=== PATIENT | female | born 1965 | race African-American/Black ===

== ENCOUNTER 2017-07-11 05:55 | Emergency (ER) | payer OTHER, SELFPAY ==
[2017-07-11] MEDS ORDERED: PROMETHAZINE 25 MG/ML VIAL ONE (06:31)
[2017-07-11] MEDS ORDERED: KETOROLAC 30 MG/ML INJ ONE (06:31)
[2017-07-11] MEDS ORDERED: NA CHLORIDE 0.9% 1,000 ML ONE ×2 (06:31→08:25)
[2017-07-11] MEDS ORDERED: DIAZEPAM 10 MG/2 ML INJ SYRINGE ONE (06:33)
[2017-07-11 06:38] LABS: Absolute Lymphocytes (CBC) 1.2 K/uL (0.7-4.9); Absolute Monocytes 0.6 K/uL (0.1-1.3); Absolute Neutrophil 6.1 K/uL (1.8-8.0); Basophils % 0.3 % (0-1.3); Eosinophils % 0.5 % (0-4.4); Hematocrit 33.6 % (36.0-45.0); Lymphocytes % 15.3 % (15.3-44.8); MCH 30.8 pg (27.0-35.0); MCV 89.8 fL (80-100); MPV 7.9 fL (7.6-11.3); Monocytes % 7.9 % (3.3-12.3); RBC Red Blood Cell Count 3.75 M/uL (3.86-4.86)
[2017-07-11 06:43] LABS: BUN Blood Urea Nitrogen 12 mg/dL (6-20); Bicarbonate 23 mEq/L (21-31); Glomerular Filtration Rate > 90 mL/min (=/>90); Glucose Level 108 mg/dL (65-120); Potassium 3.7 mEq/L (3.6-5.0); Sodium Level 131 mEq/L (135-145)
[2017-07-11] MEDS ORDERED: DEXAMETHASONE 10 MG/ML VIAL ONE (08:25)
--- NOTE | 2017-07-11 08:58 | EDPHYS ---
Physician Documentation [facility] Name: Tiana Mcrae Age: 52 yrs Sex: Female : 1965 Arrival Date: 07/11/2017 Time: 05:56 Bed 5 Private MD: ED Physician Cirilo Rojo HPI: 07/11 06:11 This 52 yrs old Black Female presents to ER via Unassigned with complaints of Headache. snw 06:11 The patient complains of pain to the right eye and left eye. The patient describes the snw headache as unrelenting. Onset: The symptoms/episode began/occurred gradually, 3 day(s) ago, and became worse and became persistent. Associated signs and symptoms: The patient has no apparent associated signs or symptoms. Severity of symptoms: At its worst the pain was incapacitating, in the emergency department the pain is unchanged. Headache History: Denies prior headaches. It is unknown whether or not the patient has had similar symptoms in the past. The patient has been recently seen by a physician: the patient's primary care provider, with similar presenting complaints, and apparently given a diagnosis of Sinusitis. BINMAN: 06:42 LMP N/A - Hysterectomy tc3 Historical: - Allergies: 06:38 No Known Allergies; tc3 - Home Meds: 06:38 None [Active]; tc3 - PMHx: 06:38 Sinus Infection; tc3 - PSHx: 06:38 Hysterectomy; tc3 - Immunization history:: Last tetanus immunization: not indicated for visit today. Pneumococcal vaccine is not up to date, Flu vaccine is up to date. - Social history:: Smoking status: Patient uses tobacco products, smokes one-half pack cigarettes per day, Patient uses alcohol, only on a social basis. Patient/guardian denies using street drugs. ROS: 06:11 ENT: Negative for injury, pain, and discharge, Neck: Negative for injury, pain, and snw swelling, Cardiovascular: Negative for chest pain, palpitations, and edema, Respiratory: Negative for shortness of breath, cough, wheezing, and pleuritic chest pain, Abdomen/GI: Negative for abdominal pain, nausea, vomiting, diarrhea, and constipation, Back: Negative for injury and pain, : Negative for injury, bleeding, discharge, and swelling, MS/Extremity: Negative for injury and deformity, Skin: Negative for injury, rash, and discoloration. 06:11 Constitutional: Positive for malaise, poor PO intake. 06:11 Eyes: Positive for pain, photophobia. 06:11 Neuro: Positive for headache. Exam: 06:11 Head/Face: Normocephalic, atraumatic. Eyes: Pupils equal round and reactive to light, snw extra-ocular motions intact. Lids and lashes normal. Conjunctiva and sclera are non-icteric and not injected. Cornea within normal limits. Periorbital areas with no swelling, redness, or edema. ENT: Nares patent. No nasal discharge, no septal abnormalities noted. Tympanic membranes are normal and external auditory canals are clear. Oropharynx with no redness, swelling, or masses, exudates, or evidence of obstruction, uvula midline. Mucous membranes moist. Neck: Trachea midline, no thyromegaly or masses palpated, and no cervical lymphadenopathy. Supple, full range of motion without nuchal rigidity, or vertebral point tenderness. No Meningismus. Chest/axilla: Normal chest wall appearance and motion. Nontender with no deformity. No lesions are appreciated. Cardiovascular: Regular rate and rhythm with a normal S1 and S2. No gallops, murmurs, or rubs. Normal PMI, no JVD. No pulse deficits. Respiratory: Lungs have equal breath sounds bilaterally, clear to auscultation and percussion. No rales, rhonchi or wheezes noted. No increased work of breathing, no retractions or nasal flaring. Abdomen/GI: Soft, non-tender, with normal bowel sounds. No distension or tympany. No guarding or rebound. No evidence of tenderness throughout. Back: No spinal tenderness. No costovertebral tenderness. Full range of motion. Skin: Warm, dry with normal turgor. Normal color with no rashes, no lesions, and no evidence of cellulitis. MS/ Extremity: Pulses equal, no cyanosis. Neurovascular intact. Full, normal range of motion. 06:11 Constitutional: The patient appears anxious, restless, uncomfortable. 06:11 Neuro: Orientation: is normal, Mentation: is normal, Sensation: is normal, seizure activity, is not displayed by the patient. Vital Signs: 06:00 BP 124 / 87; Pulse 86; Resp 18; Temp 98.8; Pulse Ox 100% ; Weight 56.7 kg; Height 5 ft. tc3 3 in. (160.02 cm); Pain 1/10; 06:30 BP 121 / 80; Pulse 73; Resp 15; Pulse Ox 100% on 15% Non-rebreather mask; Pain 9/10; tc3 07:22 BP 108 / 76; Pulse 73; Resp 16; Pulse Ox 98% on R/A; ae1 08:21 BP 114 / 75; Pulse 72; Resp 16; Pulse Ox 100% ; ae1 09:11 BP 111 / 76; Pulse 64; Resp 16; Pulse Ox 98% on R/A; ae1 06:00 Body Mass Index 22.14 (56.70 kg, 160.02 cm) tc3 Calliham Coma Score: 07:49 Eye Response: spontaneous(4). Verbal Response: oriented(5). Motor Response: obeys snw commands(6). Total: 15. MDM: 06:02 Patient medically screened. snw 07:49 Data reviewed: vital signs, nurses notes. Data interpreted: Pulse oximetry: on room air snw is 98 %. Interpretation: normal. Counseling: I had a detailed discussion with the patient and/or guardian regarding: the historical points, exam findings, and any diagnostic results supporting the discharge/admit diagnosis, lab results, the need for outpatient follow up. Response to treatment: the patient's symptoms have markedly improved after treatment. Special discussion: Based on the history and exam findings, there is no indication for further emergent testing or inpatient evaluation. I discussed with the patient/guardian the need to see the neurologist for further evaluation of the symptoms. I discussed with the patient/guardian the need to see the primary care provider for further evaluation of the symptoms. 07/11 06:06 Order name: CBC with Diff; Complete Time: 06:48 snw 07/11 06:06 Order name: Chem 7; Complete Time: 06:48 snw 07/11 06:06 Order name: Misc. Order: O2 at 15L via NRB; Complete Time: 06:29 snw Administered Medications: 06:27 Drug: Valium 2 mg Route: IVP; Site: right forearm; tc3 06:59 Follow up: Response: No adverse reaction; Pain is decreased; Anxiety decreased tc3 06:27 Drug: NS 0.9% 1000 ml Route: IV; Rate: 1 bolus; Site: right forearm; tc3 09:18 Follow up: IV Status: Completed infusion ae1 06:29 Drug: Phenergan 12.5 mg Route: IVP; Site: right forearm; tc3 06:59 Follow up: Response: No adverse reaction; Pain is decreased; Anxiety decreased tc3 06:32 Drug: TORadol 30 mg Route: IVP; Site: right forearm; tc3 07:00 Follow up: Response: No adverse reaction; Pain is decreased tc3 08:10 Drug: NS 0.9% 1000 ml Route: IV; Rate: 1 bolus; Site: right antecubital; ae1 09:16 Follow up: IV Status: Completed infusion ae1 08:13 Drug: Decadron - Dexamethasone 10 mg Route: IVP; Site: right antecubital; ae1 09:12 Follow up: Response: No adverse reaction ae1 Disposition: 07/11/17 08:57 Discharged to Home. Impression: Headache. - Condition is Stable. - Discharge Instructions: General Headache Without Cause, Rehydration, Adult. - Prescriptions for orphenadrine citrate 100 mg Oral Tablet Sustained Release - take 1 tablet by ORAL route 2 times per day As needed; 20 tablet. promethazine 25 mg Oral Tablet - take 1 tablet by ORAL route every 6 hours As needed; 20 tablet. - Work release form, Medication Reconciliation Form, Thank You Letter, Antibiotic Education form. - Follow up: Private Physician; When: 1 - 2 days; Reason: Recheck today's complaints, Continuance of care, Re-evaluation by your physician. Follow up: Emergency Department; When: As needed; Reason: Worsening of condition. Addendum: 07/14/2017 06:51 Co-signature as Attending Physician, Cirilo Rojo MD Available for consultation at p s1 all times. . Signatures: Dispatcher [employer] Magalis Scott, KAITLYNN-C HORSE RACE TIMER-Csnw Johnny Tolentino RN RN ae1 Rosa Isela Pascual RN RN tc3 Cirilo Rojo MD MD ps1
--- NOTE | 2017-07-11 08:58 | ER ---
Nurse's Notes [facility] Name: Tiana Mcrae Age: 52 yrs Sex: Female : 1965 Arrival Date: 07/11/2017 Time: 05:56 Bed 5 Private MD: Diagnosis: Headache Presentation: 07/11 05:57 Presenting complaint: Patient states: "I have a severe headache in the front of my head tc3 and behind my eyes. I have had it for 2 days and taken Ibuprofen and it hasn't helped at all. I have had a sinus infection for 2 weeks and have taken medicine for it. This one is worse and won't go away.". Transition of care: patient was not received from another setting of care. Onset of symptoms was July 09, 2017. Care prior to arrival: Medication(s) given: Motrin. 05:57 Method Of Arrival: Wheelchair tc3 05:57 Acuity: SD 3 tc3 Triage Assessment: 06:32 Headache History: The patient has had previous headaches and this one is different than tc3 previous episodes, and this one is more severe than previous episodes. General: Appears distressed, uncomfortable, Behavior is anxious, crying, restless. Pain: Complains of pain in left eye and right eye, frontal region of head Pain currently is 10 out of 10 on a pain scale. Quality of pain is described as sharp, shooting, throbbing, Pain began gradually, 2-3 days ago. Alleviated by nothing. Noted to be crying, restless, Also complains of inability to perform activities of daily living, inability to concentrate. EENT: Reports pain in right eye and left eye. Neuro: No deficits noted. Level of Consciousness is awake, alert, obeys commands, Oriented to person, place, time, situation, Dimension Warehouse Supervisor are equal bilaterally Moves all extremities. Full function Speech is normal, Facial symmetry appears normal, Pupils are PERRLA, Intact. Neuro: Reports headache frontal area. Cardiovascular: No deficits noted. Reports None Heart tones S1 S2 present Capillary refill is brisk in bilateral fingers Patient's skin is warm and dry. Respiratory: No deficits noted. Airway is patent Respiratory effort is even, unlabored, Respiratory pattern is regular, symmetrical, Breath sounds are clear bilaterally. GI: No deficits noted. No signs and/or symptoms were reported involving the gastrointestinal system. Abdomen is flat, non-distended, Bowel sounds present X 4 quads. Abd is soft and non tender X 4 quads. Patient currently denies nausea, vomiting. : No deficits noted. No signs and/or symptoms were reported regarding the genitourinary system. Derm: No deficits noted. No signs and/or symptoms reported regarding the dermatologic system. Skin is intact, is healthy with good turgor, Skin is dry, Skin is normal, Skin temperature is warm. Musculoskeletal: No deficits noted. No signs and/or symptoms reported regarding the musculoskeletal system. Circulation, motion, and sensation intact. Range of motion: intact in all extremities. DIRECTOR OF DEVELOPMENT: 06:42 LMP N/A - Hysterectomy tc3 Historical: - Allergies: 06:38 No Known Allergies; tc3 - Home Meds: 06:38 None [Active]; tc3 - PMHx: 06:38 Sinus Infection; tc3 - PSHx: 06:38 Hysterectomy; tc3 - Immunization history:: Last tetanus immunization: not indicated for visit today. Pneumococcal vaccine is not up to date, Flu vaccine is up to date. - Social history:: Smoking status: Patient uses tobacco products, smokes one-half pack cigarettes per day, Patient uses alcohol, only on a social basis. Patient/guardian denies using street drugs. Screenin:04 Abuse screen: Denies threats or abuse. Denies injuries from another. Nutritional tc3 screening: No deficits noted. Tuberculosis screening: No symptoms or risk factors identified. Fall Risk None identified. Assessment: 06:30 General: refer to triage assessment, no changes. tc3 07:00 Reassessment: Patient appears in no apparent distress at this time. Patient and/or tc3 family updated on plan of care and expected duration. Pain level reassessed. Patient is alert, oriented x 3, equal unlabored respirations, skin warm/dry/pink. pain decreasing slowly per pt. 07:23 Reassessment: Patient and/or family updated on plan of care and expected duration. Pain ae1 level reassessed. Patient states feeling better. Vital Signs: 06:00 BP 124 / 87; Pulse 86; Resp 18; Temp 98.8; Pulse Ox 100% ; Weight 56.7 kg; Height 5 ft. tc3 3 in. (160.02 cm); Pain 1/10; 06:30 BP 121 / 80; Pulse 73; Resp 15; Pulse Ox 100% on 15% Non-rebreather mask; Pain 9/10; tc3 07:22 BP 108 / 76; Pulse 73; Resp 16; Pulse Ox 98% on R/A; ae1 08:21 BP 114 / 75; Pulse 72; Resp 16; Pulse Ox 100% ; ae1 09:11 BP 111 / 76; Pulse 64; Resp 16; Pulse Ox 98% on R/A; ae1 06:00 Body Mass Index 22.14 (56.70 kg, 160.02 cm) tc3 Parker Coma Score: 07:49 Eye Response: spontaneous(4). Verbal Response: oriented(5). Motor Response: obeys snw commands(6). Total: 15. ED Course: 05:56 Patient arrived in ED. ds1 05:58 Arm band placed on right wrist. tc3 06:01 Magalis Juan FNP-C is PHCP. snw 06:01 Cirilo Rojo MD is Attending Physician. snw 06:05 Patient has correct armband on for positive identification. Bed in low position. Call tc3 light in reach. Side rails up X2. Adult w/ patient. Pulse ox on. NIBP on. Warm blanket given. Verbal reassurance given. 06:08 Rosa Isela Pascual RN is Primary Nurse. tc3 06:14 Oxygen administration via non-rebreather mask \\T\\ 15L/min. tc3 06:20 Missed attempt(s): 20 gauge in right forearm. by OANH Davis. Bleeding tc3 controlled, band aid applied, catheter tip intact. 06:25 Initial lab(s) drawn, by ED staff, sent to lab. First set of blood cultures drawn by ED tc3 staff. 06:29 Inserted saline lock: 20 gauge in right forearm, using aseptic technique. Blood tc3 collected. by OANH Davis. 06:32 Triage completed. tc3 06:58 Report given to AMAN Lea. tc3 09:17 No provider procedures requiring assistance completed. IV discontinued, intact, ae1 bleeding controlled, No redness/swelling at site. Pressure dressing applied. Administered Medications: 06:27 Drug: Valium 2 mg Route: IVP; Site: right forearm; tc3 06:59 Follow up: Response: No adverse reaction; Pain is decreased; Anxiety decreased tc3 06:27 Drug: NS 0.9% 1000 ml Route: IV; Rate: 1 bolus; Site: right forearm; tc3 09:18 Follow up: IV Status: Completed infusion ae1 06:29 Drug: Phenergan 12.5 mg Route: IVP; Site: right forearm; tc3 06:59 Follow up: Response: No adverse reaction; Pain is decreased; Anxiety decreased tc3 06:32 Drug: TORadol 30 mg Route: IVP; Site: right forearm; tc3 07:00 Follow up: Response: No adverse reaction; Pain is decreased tc3 08:10 Drug: NS 0.9% 1000 ml Route: IV; Rate: 1 bolus; Site: right antecubital; ae1 09:16 Follow up: IV Status: Completed infusion ae1 08:13 Drug: Decadron - Dexamethasone 10 mg Route: IVP; Site: right antecubital; ae1 09:12 Follow up: Response: No adverse reaction ae1 Outcome: 08:57 Discharge ordered by . snmally 09:17 Discharged to home ambulatory, with family. ae1 09:17 Condition: stable 09:17 Discharge instructions given to patient, Instructed on discharge instructions, follow up and referral plans. medication usage, Demonstrated understanding of instructions, Prescriptions given X 2. 09:17 Patient left the ED. ae1 Signatures: Magalis Juan, KAITLYNN-C FISHER TERRAPIN-Vani Avelar ds1 Johnny Tolentino RN RN ae1 Rosa Isela Pascual RN RN tc3 Corrections: (The following items were deleted from the chart) 06:28 05:27 NS 0.9% 1000 ml IV at 1 bolus in right forearm tc3 tc3
== END 2017-07-11 09:17 | disposition home or self-care (01) ==
LOC: ER 05:55
DX: R51 Headache (principal)
CPT/HCPCS: 36415; 80048; 85025; 99284; J1100; J2550; J3360; J7030

== ENCOUNTER 2020-11-15 13:54 | Emergency (ER) | payer SELFPAY ==
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
[2020-11-15] MEDS ORDERED: HYDROCODONE/APAP 10/325 TAB ONE (16:10)
[2020-11-15 16:42] VITALS: TEMP 98.7
[2020-11-15 16:46] VITALS: BP 112/72; O2SAT 100
== END 2020-11-15 16:24 | disposition home or self-care (01) ==
LOC: ER 13:54
DX: M54.6 Pain in thoracic spine (principal); M54.5 Low back pain; V49.59XA Passenger injured in collision with other motor vehicles in traffic accident, initial encounter; F17.210 Nicotine dependence, cigarettes, uncomplicated
CPT/HCPCS: 70450; 71250; 72125; 99284

== ENCOUNTER 2021-03-09 09:44 | Emergency (ER) | payer SELFPAY ==
[2021-03-09] MEDS ORDERED: ACETAMINOPHEN 325 MG TABLET ONE (10:54)
[2021-03-09] MEDS ORDERED: NA CHLORIDE 0.9% 1,000 ML ONE (10:54)
[2021-03-09 11:10] LABS: Absolute Lymphocytes (CBC) 1.1 K/uL (0.7-4.9); Basophils % 0.6 % (0-1.3); Hematocrit 33.3 % (36.0-45.0); Lymphocytes % 25.9 % (15.3-44.8); MPV 7.6 fL (7.6-11.3); RBC Red Blood Cell Count 3.71 M/uL (3.86-4.86)
[2021-03-09 11:15] LABS: BUN Blood Urea Nitrogen 7 mg/dL (7-18); Bicarbonate 26 mmol/L (21-32); Glucose Level 99 mg/dL (74-106); Sodium Level 135 mmol/L (136-145)
[2021-03-09 11:23] LABS: Urine Blood 1+ (Negative); Urine Glucose Negative (Negative); Urine Protein 2+ (Negative); Urine Specific Gravity 1.015 (1.005-1.030)
--- NOTE | 2021-03-09 11:25 | RAD REPORT ---
EXAM DESCRIPTION: RAD - Chest Single View - 03/09/2021 11:18 am CLINICAL HISTORY: COUGH Chest pain. COMPARISON: No comparisons FINDINGS: Portable technique limits examination quality. The lungs are mildly emphysematous grossly clear. The heart is normal in size. No displaced fractures . IMPRESSION: Mild COPD.
[2021-03-09] MEDS ORDERED: POTASSIUM 25 MEQ EFFERV TAB ONE (11:51)
[2021-03-09] MEDS ORDERED: KCL 20 MEQ/100 mL IVPB 20 MEQ/100 ML BAG IV ONE (11:51)
[2021-03-09] MEDS ORDERED: NA CHLORIDE 0.9% 500 ML ONE (11:52)
[2021-03-09 11:55] LABS: SARS-COV-2 RT PCR POSITIVE (NEGATIVE)
--- NOTE | 2021-03-09 15:54 | EDPHYS ---
Physician Documentation [facility] Name: Tiana Mcrae Age: 56 yrs Sex: Female : 1965 Arrival Date: 03/09/2021 Time: 09:49 Bed 19 Private MD: ED Physician Nik Mitchell HPI: 03/09 10:44 This 56 yrs old Black Female presents to ER via Ambulatory with complaints of Flu pkl Symptoms, bodyaches. 10:44 The patient complains of pain to the top of head and forehead. The patient describes pkl the headache as constant. Onset: The symptoms/episode began/occurred 3 day(s) ago. Associated signs and symptoms: Pertinent positives: back pain and bodyaches. 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 - Social history:: Smoking status: Patient reports the use of cigarette tobacco products, smokes one-half pack cigarettes per day. ROS: 10:45 Eyes: Negative for injury, pain, redness, and discharge. pkl 10:45 ENT: Positive for sore throat. 10:45 Neck: Negative for stiffness. 10:45 Cardiovascular: Negative for chest pain. 10:45 Respiratory: Positive for cough, with yellow sputum. 10:45 Abdomen/GI: Negative for abdominal pain, nausea, vomiting, and diarrhea. 10:45 Back: Negative for acute changes. 10:45 : Negative for urinary symptoms. 10:45 MS/extremity: Negative for acute changes. 10:45 Skin: Negative for rash. 10:45 Neuro: Positive for headache. Exam: 10:45 Head/Face: Normocephalic, atraumatic. Eyes: Pupils equal round and reactive to light, pkl extra-ocular motions intact. Lids and lashes normal. Conjunctiva and sclera are non-icteric and not injected. Cornea within normal limits. Periorbital areas with no swelling, redness, or edema. ENT: Nares patent. No nasal discharge, no septal abnormalities noted. Tympanic membranes are normal and external auditory canals are clear. Oropharynx with no redness, swelling, or masses, exudates, or evidence of obstruction, uvula midline. Mucous membranes moist. Neck: Trachea midline, no thyromegaly or masses palpated, and no cervical lymphadenopathy. Supple, full range of motion without nuchal rigidity, or vertebral point tenderness. No Meningismus. Chest/axilla: Normal chest wall appearance and motion. Nontender with no deformity. No lesions are appreciated. Cardiovascular: Regular rate and rhythm with a normal S1 and S2. No gallops, murmurs, or rubs. Normal PMI, no JVD. No pulse deficits. Respiratory: Lungs have equal breath sounds bilaterally, clear to auscultation and percussion. No rales, rhonchi or wheezes noted. No increased work of breathing, no retractions or nasal flaring. Abdomen/GI: Soft, non-tender, with normal bowel sounds. No distension or tympany. No guarding or rebound. No evidence of tenderness throughout. Back: No spinal tenderness. No costovertebral tenderness. Full range of motion. Skin: Warm, dry with normal turgor. Normal color with no rashes, no lesions, and no evidence of cellulitis. MS/ Extremity: Pulses equal, no cyanosis. Neurovascular intact. Full, normal range of motion. Neuro: Awake and alert, GCS 15, oriented to person, place, time, and situation. Cranial nerves II-XII grossly intact. Motor strength 5/5 in all extremities. Sensory grossly intact. Cerebellar exam normal. Normal gait. Vital Signs: 09:51 BP 131 / 100; Pulse 102; Resp 16; Temp 98.2; Pulse Ox 98% ; Weight 53.52 kg; Height 5 ll3 ft. 3 in. (160.02 cm); Pain 8/10; 10:30 BP 128 / 92; Pulse 99; Resp 20; Temp 98.4(O); Pulse Ox 98% on R/A; sl2 12:00 BP 132 / 90; Pulse 72; Resp 18; Temp 98.6(O); Pulse Ox 97% on R/A; sl2 13:00 BP 130 / 88; Pulse 82; Resp 20; Temp 98.4; Pulse Ox 97% on R/A; sl2 14:00 BP 134 / 84; Pulse 76; Resp 20; Pulse Ox 97% on R/A; sl2 15:00 BP 140 / 81; Pulse 76; Resp 18; Temp 97.8(O); Pulse Ox 99% on R/A; sl2 09:51 Body Mass Index 20.90 (53.52 kg, 160.02 cm) ll3 MDM: 10:03 Patient medically screened. pkl 15:49 Data reviewed: vital signs, nurses notes. ED course: Patient feeling better. Discussed pkl lab and imaging studies with patient. Advised quarantine for 10 days. To follow up with PCP in 2 to 3 days Patient understood instructions. 03/09 10:24 Order name: CBC with Diff pkl 03/09 10:24 Order name: Chem 7 pkl 03/09 10:25 Order name: CBC with Automated Diff; Complete Time: 11:26 EDMS 03/09 10:25 Order name: Basic Metabolic Panel; Complete Time: 11:26 EDMS 03/09 10:24 Order name: XRAY CXR (1 view); Complete Time: 11:26 pkl 03/09 10:41 Order name: COVID-19/FLU A+B; Complete Time: 12:42 EDMS 03/09 10:45 Order name: Strep; Complete Time: 15:49 pkl 03/09 11:22 Order name: Urine Dipstick-Ancillary; Complete Time: 11:26 EDMS 03/09 12:55 Order name: Throat Culture EDMS 03/09 10:24 Order name: Urine Dipstick-Ancillary (obtain specimen); Complete Time: 11:26 pkl 03/09 14:59 Order name: Labs - recollect needed: recollect green tube bd Administered Medications: 10:58 Drug: NS 0.9% 1000 ml Route: IV; Rate: 1000 ml; Site: left hand; sl2 11:26 Follow up: Response: No adverse reaction sl2 12:10 Follow up: IV Status: Completed infusion; IV Intake: 1000ml sl2 10:58 Drug: Tylenol 650 mg Route: PO; sl2 11:26 Follow up: Response: No adverse reaction sl2 11:50 Follow up: Response: Pain is decreased sl2 11:53 Drug: K-Lyte (potassium) Effervescent Tablet 50 mEq Route: PO; sl2 14:26 Follow up: Response: No adverse reaction sl2 11:58 Drug: Potassium Chloride 20 mEq Route: IV; Rate: calculated rate; Site: left hand; sl2 14:26 Follow up: IV Status: Completed infusion; IV Intake: 100ml sl2 Disposition Summary: 03/09/21 15:53 Discharge Ordered Location: Home pkl Problem: new pkl Symptoms: have improved pkl Condition: Stable pkl Diagnosis - Positive Covid 19. Hypokalemia pkl Followup: pkl - With: Private Physician - When: 2 - 3 days - Reason: Re-evaluation by your physician Discharge Instructions: - Discharge Summary Sheet pkl Forms: - Work release form pkl - Medication Reconciliation Form pkl - Thank You Letter pkl - Antibiotic Education pkl - Prescription Opioid Use pkl Signatures: Dispatcher [employer] EDMS Yolande Ritchie Pin, MD MD pkl Sirena Haines RN RN sl2 Carmen Yap RN RN ll3 Corrections: (The following items were deleted from the chart) 10:41 10:16 SARS-COV-2 RT PCR+MOL.LAB.BRZ ordered. EDMS EDMS 10:42 10:16 Influenza Screen (A \T\ B)+BA.LAB.BRZ ordered. EDMS EDMS
--- NOTE | 2021-03-09 15:54 | ER ---
Nurse's Notes [facility] Name: Tiana Mcrae Age: 56 yrs Sex: Female : 1965 Arrival Date: 03/09/2021 Time: 09:49 Bed 19 Private MD: Diagnosis: Positive Covid 19. Hypokalemia Presentation: 03/09 09:51 Chief complaint: Patient states: pt states she has had a migraine for 3 days, c/o back ll3 and leg pain, body aches, productive cough, sore throat. Coronavirus screen: Client presents with at least one sign or symptom that may indicate coronavirus-19. Standard/surgical mask placed on the client. Ebola Screen: No symptoms or risks identified at this time. Initial Sepsis Screen: Does the patient meet any 2 criteria? HR > 90 bpm. Does the patient have a suspected source of infection? Yes: Productive cough/pneumonia. Risk Assessment: Do you want to hurt yourself or someone else? Patient reports no desire to harm self or others. Onset of symptoms was March 06, 2021. 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 - Social history:: Smoking status: Patient reports the use of cigarette tobacco products, smokes one-half pack cigarettes per day. Screenin:03 Abuse screen: Denies threats or abuse. Nutritional screening: No deficits noted. sl2 Tuberculosis screening: No symptoms or risk factors identified. Never had TB. Possible symptoms: None Risk factors: None Intervention for positive screen:. Fall Risk None identified. No fall in past 12 months (0 pts). No secondary diagnosis (0 pts). No IV (0 pts). Ambulatory Aid- None/Bed Rest/Nurse Assist (0 pts). Gait- Weak (10 pts.). Mental Status- Oriented to own ability (0 pts). Total Addison Fall Scale indicates No Risk (0-24 pts). Assessment: 10:03 General: Appears in no apparent distress. well groomed, well developed, Behavior is sl2 calm, cooperative, appropriate for age. Pain: Complains of pain in Generalized body ache Pain currently is 6 out of 10 on a pain scale. at worst was 8 out of 10 on a pain scale. Quality of pain is described as aching, Pain began gradually, 2-3 days ago. Is continuous. Neuro: No deficits noted. Cardiovascular: No deficits noted. Respiratory: Reports cough that is productive, rhinitis, congestion. GI: No deficits noted. No signs and/or symptoms were reported involving the gastrointestinal system. : No deficits noted. No signs and/or symptoms were reported regarding the genitourinary system. EENT: Reports nasal discharge that is yellow rhinitis. Derm: No deficits noted. No signs and/or symptoms reported regarding the dermatologic system. Musculoskeletal: Reports pain in Generalized body ache. Vital Signs: 09:51 BP 131 / 100; Pulse 102; Resp 16; Temp 98.2; Pulse Ox 98% ; Weight 53.52 kg; Height 5 ll3 ft. 3 in. (160.02 cm); Pain 8/10; 10:30 BP 128 / 92; Pulse 99; Resp 20; Temp 98.4(O); Pulse Ox 98% on R/A; sl2 12:00 BP 132 / 90; Pulse 72; Resp 18; Temp 98.6(O); Pulse Ox 97% on R/A; sl2 13:00 BP 130 / 88; Pulse 82; Resp 20; Temp 98.4; Pulse Ox 97% on R/A; sl2 14:00 BP 134 / 84; Pulse 76; Resp 20; Pulse Ox 97% on R/A; sl2 15:00 BP 140 / 81; Pulse 76; Resp 18; Temp 97.8(O); Pulse Ox 99% on R/A; sl2 09:51 Body Mass Index 20.90 (53.52 kg, 160.02 cm) ll3 ED Course: 09:49 Patient arrived in ED. am2 09:55 Triage completed. ll3 09:57 Arm band placed on. ll3 10:02 Sirena Haines RN is Primary Nurse. sl2 10:03 Nik Mitchell MD is Attending Physician. pkl 10:03 Patient has correct armband on for positive identification. Fall risk band placed. Bed sl2 in low position. Call light in reach. 10:25 Initial lab(s) drawn, by nc, sent to lab. COVID swab sent to lab. Flu and/or RSV swab sl2 sent to lab. 10:52 Initial lab(s) drawn, sent to lab. Blood specimen - short purple top and light green sl2 top. 11:18 XRAY CXR (1 view) In Process Unspecified. EDMS Administered Medications: 10:58 Drug: NS 0.9% 1000 ml Route: IV; Rate: 1000 ml; Site: left hand; sl2 11:26 Follow up: Response: No adverse reaction sl2 12:10 Follow up: IV Status: Completed infusion; IV Intake: 1000ml sl2 10:58 Drug: Tylenol 650 mg Route: PO; sl2 11:26 Follow up: Response: No adverse reaction sl2 11:50 Follow up: Response: Pain is decreased sl2 11:53 Drug: K-Lyte (potassium) Effervescent Tablet 50 mEq Route: PO; sl2 14:26 Follow up: Response: No adverse reaction sl2 11:58 Drug: Potassium Chloride 20 mEq Route: IV; Rate: calculated rate; Site: left hand; sl2 14:26 Follow up: IV Status: Completed infusion; IV Intake: 100ml sl2 Intake: 12:10 IV: 1000ml; Total: 1000ml. sl2 14:26 IV: 100ml; Total: 1100ml. sl2 Outcome: 15:53 Discharge ordered by . bella 16:02 Patient left the ED. sl2 Signatures: Dispatcher [employer] EDCO Nik Mitchell MD MD pkl Valentina Borreor Sophia, RN RN sl2 Carmen Yap RN RN 3
[2021-03-09 17:59] VITALS: BP 140/81; TEMP 97.8; O2SAT 99
== END 2021-03-09 16:02 | disposition home or self-care (01) ==
LOC: ER 09:44
DX: U07.1 COVID-19 (principal); E87.6 Hypokalemia; F17.210 Nicotine dependence, cigarettes, uncomplicated
CPT/HCPCS: 0240U; 36415; 71045; 80048; 81003; 85025; 87070; 87081; 96361; 96365; 96366; 99284; J3480; J7030; J7040

== ENCOUNTER 2021-03-18 13:24 | Emergency (ER) | payer SELFPAY ==
[2021-03-18] MEDS ORDERED: IBUPROFEN 200 MG TAB PO ONE (13:54)
[2021-03-18] MEDS ORDERED: Ringers Lactate 1,000 ML IV ONE (13:54)
[2021-03-18] MEDS ORDERED: METOCLOPRAMIDE 10 MG/2mL INJ ONE (14:22)
[2021-03-18] MEDS ORDERED: DIPHENHYDRAMINE 50 MG/ML VIAL ONE (14:23)
[2021-03-18 14:36] LABS: Absolute Lymphocytes (CBC) 0.9 K/uL (0.7-4.9); Basophils % 0.1 % (0-1.3); Hematocrit 37.7 % (36.0-45.0); Lymphocytes % 7.4 % (15.3-44.8); RBC Red Blood Cell Count 4.21 M/uL (3.86-4.86)
[2021-03-18 14:50] LABS: Albumin 3.1 g/dL (3.4-5.0); Bilirubin Direct 0.2 mg/dL (0-0.2); Bilirubin Total 0.5 mg/dL (0.2-1.0); Potassium 3.4 mmol/L (3.5-5.1); Protein, Total 10.6 g/dL (6.4-8.2)
--- NOTE | 2021-03-18 15:55 | RAD REPORT ---
EXAM DESCRIPTION: RAD - Chest Single View - 03/18/2021 2:41 pm CLINICAL HISTORY: CHEST PAIN COMPARISON: Chest Single View dated 03/09/2021 FINDINGS: Lines: None. Lungs: No evidence of edema or pneumonia. Pleural: No significant pleural effusions or pneumothorax. Cardiac: The heart size is within normal limits. Bones: No acute fractures. Other: IMPRESSION: No acute cardiopulmonary disease.
--- NOTE | 2021-03-18 16:27 | EDPHYS ---
Physician Documentation [facility] Name: Tiana Mcrae Age: 56 yrs Sex: Female : 1965 Arrival Date: 03/18/2021 Time: 13:25 Bed 4 Private MD: ED Physician Maulik Herrera HPI: 03/18 14:46 This 56 yrs old Black Female presents to ER via Wheelchair with complaints of Cough, jr8 covid+. 14:46 Severity of symptoms: At their worst the symptoms were moderate, in the emergency jr8 department the symptoms are unchanged. Modifying factors: The symptoms are alleviated by nothing, the symptoms are aggravated by nothing. The patient has not experienced similar symptoms in the past. The patient has not recently seen a physician. This is a 56-year-old female patient that presented to the emergency room with complaints of nausea, vomiting, diarrhea, fever, cough, headache. Patient recently diagnosed with Covid. 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 - Social history:: Smoking status: Patient reports the use of cigarette tobacco products, smokes one pack cigarettes per day. ROS: 14:46 Constitutional: Positive for body aches, chills, fever, malaise. jr8 14:46 Respiratory: Positive for cough, Negative for dyspnea on exertion, shortness of breath, sputum production, wheezing. 14:46 Abdomen/GI: Positive for nausea, vomiting, and diarrhea. 14:46 Neuro: Positive for headache. 14:46 All other systems are negative. Exam: 14:46 Eyes: Pupils equal round and reactive to light, extra-ocular motions intact. Lids and jr8 lashes normal. Conjunctiva and sclera are non-icteric and not injected. Cornea within normal limits. Periorbital areas with no swelling, redness, or edema. ENT: Nares patent. No nasal discharge, no septal abnormalities noted. Tympanic membranes are normal and external auditory canals are clear. Oropharynx with no redness, swelling, or masses, exudates, or evidence of obstruction, uvula midline. Mucous membranes moist. Neck: Trachea midline, no thyromegaly or masses palpated, and no cervical lymphadenopathy. Supple, full range of motion without nuchal rigidity, or vertebral point tenderness. No Meningismus. Respiratory: Lungs have equal breath sounds bilaterally, clear to auscultation and percussion. No rales, rhonchi or wheezes noted. No increased work of breathing, no retractions or nasal flaring. Abdomen/GI: Soft, non-tender, with normal bowel sounds. No distension or tympany. No guarding or rebound. No evidence of tenderness throughout. Back: No spinal tenderness. No costovertebral tenderness. Full range of motion. Skin: Warm, dry with normal turgor. Normal color with no rashes, no lesions, and no evidence of cellulitis. MS/ Extremity: Pulses equal, no cyanosis. Neurovascular intact. Full, normal range of motion. Neuro: Awake and alert, GCS 15, oriented to person, place, time, and situation. Cranial nerves II-XII grossly intact. Motor strength 5/5 in all extremities. Sensory grossly intact. 14:46 Constitutional: The patient appears alert, awake, obviously ill, in obvious pain. 14:46 Cardiovascular: Rate: tachycardic, Rhythm: regular, Pulses: Pulses are 2+ in right radial artery and left radial artery. Heart sounds: normal, normal S1and S2, no S3 or S4, no murmur, no rub, no gallop. Vital Signs: 13:45 BP 98 / 70; Pulse 106; Resp 18 S; Temp 102.7(TE); Pulse Ox 100% on R/A; Weight 53.52 iw kg; Height 5 ft. 3 in. (160.02 cm); 14:30 BP 104 / 84; Pulse 106; Resp 15; Pulse Ox 100% ; Pain 10/10; jl7 16:15 BP 106 / 80; Pulse 76; Resp 15; Pulse Ox 100% ; ll3 16:51 BP 103 / 79; Pulse 91; Resp 15; Temp 99.5(O); Pulse Ox 100% ; Pain 2/10; jl7 13:45 Body Mass Index 20.90 (53.52 kg, 160.02 cm) iw MDM: 13:28 Patient medically screened. jr8 16:25 Data reviewed: vital signs, nurses notes, lab test result(s), radiologic studies, plain jr8 films. Data interpreted: Pulse oximetry: on room air is 100 %. Interpretation: normal. Counseling: I had a detailed discussion with the patient and/or guardian regarding: the historical points, exam findings, and any diagnostic results supporting the discharge/admit diagnosis, lab results, radiology results, the need for outpatient follow up, a family practitioner, to return to the emergency department if symptoms worsen or persist or if there are any questions or concerns that arise at home. Response to treatment: the patient's symptoms have markedly improved after treatment, patient is well hydrated. Headache gone. 03/18 13:49 Order name: Basic Metabolic Panel; Complete Time: 14:51 [facility] 03/18 13:49 Order name: CBC with Diff [facility] 03/18 13:49 Order name: Hepatic Function; Complete Time: 14:51 [facility] 03/18 13:49 Order name: Lipase; Complete Time: 14:51 [facility] 03/18 13:49 Order name: XRAY Chest (1 view); Complete Time: 16:22 [facility] 03/18 13:49 Order name: IV Saline Lock; Complete Time: 14:43 8 03/18 13:49 Order name: Labs collected and sent; Complete Time: 14:43 jr8 Administered Medications: 14:15 Drug: Ibuprofen 600 mg Route: PO; jl7 16:53 Follow up: Response: No adverse reaction; Temperature is decreased jl7 14:20 Drug: Ringers - Lactated Ringers Solution 1000 ml Route: IV; Rate: 1 bolus; Site: right jl7 wrist; 15:30 Follow up: Response: No adverse reaction; IV Status: Completed infusion; IV Intake: jl7 1000ml 14:35 Drug: Reglan (metoCLOPramide) 10 mg Route: IVP; Site: right hand; ll3 15:00 Follow up: Response: No adverse reaction; Marked relief of symptoms jl7 14:35 Drug: Benadryl (diphenhydrAMINE) 25 mg Route: IVP; Site: right hand; ll3 15:00 Follow up: Response: No adverse reaction; Marked relief of symptoms jl7 Disposition: 17:26 Co-signature as Attending Physician, Maulik Herrera MD I agree with the assessment and kdr plan of care. Disposition Summary: 03/18/21 16:26 Discharge Ordered Location: Home jr8 Problem: new jr8 Symptoms: have improved jr8 Condition: Stable jr8 Diagnosis - Migraine without aura, intractable jr8 - SARS-associated coronavirus as the cause of diseases classified elsewhere jr8 - Dehydration jr8 Followup: jr8 - With: Private Physician - When: 5 - 6 days - Reason: Recheck today's complaints, Continuance of care, Re-evaluation by your physician Discharge Instructions: - Discharge Summary Sheet jr8 - Dehydration, Adult jr8 - COVID-19 jr8 Forms: - Medication Reconciliation Form jr8 - Thank You Letter jr8 - Antibiotic Education jr8 - Prescription Opioid Use jr8 - Work release form jl7 Prescriptions: - promethazine 25 mg Oral Tablet - take 1 tablet by ORAL route every 6 hours As needed; 20 tablet; Refills: 0, jr8 Product Selection Permitted Signatures: Dispatcher [employer] EDMS Maulik Herrera MD MD kdr Williams, Irene, RN RN Connor Hendrix PA PA jr8 Jayashree Salgado RN RN jl7 Carmen Yap RN RN ll3
--- NOTE | 2021-03-18 16:27 | ER ---
Nurse's Notes [facility] Name: Tiana Mcrae Age: 56 yrs Sex: Female : 1965 Arrival Date: 03/18/2021 Time: 13:25 Bed 4 Private MD: Diagnosis: Migraine without aura, intractable;SARS-associated coronavirus as the cause of diseases classified elsewhere;Dehydration Presentation: 03/18 13:44 Chief complaint: Chief complaint: Patient states: COVID + X 2 weeks, still has fever, iw cough, vomiting, headache, now vomiting blood , last tylenol given at 10 am. 13:45 Coronavirus screen: Client presents with at least one sign or symptom that may indicate iw coronavirus-19. Client reports previous positive COVID test result. Ebola Screen: Patient negative for fever greater than or equal to 101.5 degrees Fahrenheit, and additional compatible Ebola Virus Disease symptoms Patient denies exposure to infectious person. Patient denies travel to an Ebola-affected area in the 21 days before illness onset. No symptoms or risks identified at this time. Initial Sepsis Screen: Does the patient meet any 2 criteria? No. Patient's initial sepsis screen is negative. Does the patient have a suspected source of infection? No. Patient's initial sepsis screen is negative. Risk Assessment: Do you want to hurt yourself or someone else? Patient reports no desire to harm self or others. Onset of symptoms was March 16, 2021. 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 - Social history:: Smoking status: Patient reports the use of cigarette tobacco products, smokes one pack cigarettes per day. Screenin:30 Abuse screen: Denies threats or abuse. Denies injuries from another. Nutritional jl7 screening: No deficits noted. Tuberculosis screening: No symptoms or risk factors identified. Fall Risk IV access (20 points). Total Addison Fall Scale indicates No Risk (0-24 pts). Assessment: 14:30 General: Appears in no apparent distress. uncomfortable, slender, Behavior is anxious, jl7 fussy, inappropriate for age. Pain: Complains of pain in CHRISTIANSEN Pain currently is 10 out of 10 on a pain scale. Neuro: Level of Consciousness is awake, alert, obeys commands, Oriented to person, place, time, situation. Cardiovascular: Patient's skin is warm and dry. Respiratory: Reports cough that is Airway is patent Respiratory effort is even, unlabored, Respiratory pattern is regular, symmetrical. Derm: Skin is pink, warm \T\ dry. 15:30 Reassessment: Patient appears in no apparent distress at this time. Patient and/or jl7 family updated on plan of care and expected duration. Pain level reassessed. Patient is alert, oriented x 3, equal unlabored respirations, skin warm/dry/pink. 16:30 Reassessment: Patient appears in no apparent distress at this time. Patient and/or jl7 family updated on plan of care and expected duration. Pain level reassessed. Patient is alert, oriented x 3, equal unlabored respirations, skin warm/dry/pink. Patient states feeling better. Patient states symptoms have improved. Vital Signs: 13:45 BP 98 / 70; Pulse 106; Resp 18 S; Temp 102.7(TE); Pulse Ox 100% on R/A; Weight 53.52 iw kg; Height 5 ft. 3 in. (160.02 cm); 14:30 BP 104 / 84; Pulse 106; Resp 15; Pulse Ox 100% ; Pain 10/10; jl7 16:15 BP 106 / 80; Pulse 76; Resp 15; Pulse Ox 100% ; ll3 16:51 BP 103 / 79; Pulse 91; Resp 15; Temp 99.5(O); Pulse Ox 100% ; Pain 2/10; jl7 13:45 Body Mass Index 20.90 (53.52 kg, 160.02 cm) iw ED Course: 13:25 Patient arrived in ED. am2 13:28 Connor Sutton PA is PHCP. jr8 13:28 Maulik Herrera MD is Attending Physician. jr8 13:46 Triage completed. iw 13:49 Carmen Yap RN is Primary Nurse. ll3 14:10 Initial lab(s) drawn, by me, sent to lab. Inserted saline lock: 22 gauge in right jl7 wrist, using aseptic technique. Blood collected. 14:29 Arm band placed on right wrist. jl7 14:30 Patient has correct armband on for positive identification. Bed in low position. Call jl7 light in reach. Side rails up X 1. Pulse ox on. NIBP on. 14:36 Primary Nurse role handed off by Carmen Yap RN jl7 14:36 Jayashree Salgado RN is Primary Nurse. jl7 14:41 XRAY Chest (1 view) In Process Unspecified. EDMS 16:49 No provider procedures requiring assistance completed. jl7 17:05 IV discontinued, intact, bleeding controlled, No redness/swelling at site. Pressure jl7 dressing applied. Administered Medications: 14:15 Drug: Ibuprofen 600 mg Route: PO; jl7 16:53 Follow up: Response: No adverse reaction; Temperature is decreased jl7 14:20 Drug: Ringers - Lactated Ringers Solution 1000 ml Route: IV; Rate: 1 bolus; Site: right jl7 wrist; 15:30 Follow up: Response: No adverse reaction; IV Status: Completed infusion; IV Intake: jl7 1000ml 14:35 Drug: Reglan (metoCLOPramide) 10 mg Route: IVP; Site: right hand; ll3 15:00 Follow up: Response: No adverse reaction; Marked relief of symptoms jl7 14:35 Drug: Benadryl (diphenhydrAMINE) 25 mg Route: IVP; Site: right hand; ll3 15:00 Follow up: Response: No adverse reaction; Marked relief of symptoms jl7 Intake: 15:30 IV: 1000ml; Total: 1000ml. jl7 Outcome: 16:26 Discharge ordered by MD. fitzgerald 17:05 Discharged to home ambulatory. jl7 17:05 Condition: stable 17:05 Discharge instructions given to patient, Instructed on discharge instructions, follow up and referral plans. medication usage, Demonstrated understanding of instructions, follow-up care, medications, Prescriptions given X 1. 17:06 Patient left the ED. jl7 Signatures: Dispatcher [employer] EDMS Sandra Ramsey RN RN iw Roszak, Josh, PA PA jr8 Leal, Jahala, RN RN jl7 Valentina Borrero [facility] Carmen Yap RN RN 3 Corrections: (The following items were deleted from the chart) 13:46 13:44 Chief complaint: iw iw 13:47 13:44 Chief complaint: Patient states: COVID + X 2 weeks, still has fever, cough, iw vomiting, headache, now vomiting blood Chief complaint: Patient states: COVID + X 2 weeks, still has fever, cough, vomiting, headache, now vomiting blood iw
[2021-03-18 17:28] VITALS: O2SAT 100
[2021-03-18 17:32] VITALS: BP 103/79; TEMP 99.5
[2021-03-18 20:34] LABS: Blood Morphology Comment NOT SEEN (NOT SEEN); Platelet Estimate ADEQ
== END 2021-03-18 17:06 | disposition home or self-care (01) ==
LOC: ER 13:24
DX: U07.1 COVID-19 (principal); E86.0 Dehydration; F17.210 Nicotine dependence, cigarettes, uncomplicated
CPT/HCPCS: 36415; 71045; 80048; 80076; 83690; 85025; 96365; 96375; 99284; J1200; J2765; J7120

== ENCOUNTER 2021-03-19 09:47 | Emergency (ER) | payer SELFPAY ==
--- NOTE | 2021-03-19 10:21 | EDPHYS ---
Physician Documentation [facility] Name: Tiana Mcrae Age: 56 yrs Sex: Female : 1965 Arrival Date: 03/19/2021 Time: 09:49 Bed 4 Private MD: ED Physician Maulik Herrera HPI: 03/19 10:33 This 56 yrs old Black Female presents to ER via Wheelchair with complaints of Headache, kb Vomiting, body aches. 10:33 The patient presents to the emergency department with nausea, vomiting, diarrhea. kb Onset: The symptoms/episode began/occurred 10 day(s) ago, and became worse 2 day(s) ago. Possible causes: covid +. The symptoms are aggravated by nothing. The symptoms are alleviated by nothing. Associated signs and symptoms: Pertinent positives: diarrhea, nausea, vomiting, headache, Pertinent negatives: abdominal pain. Severity of symptoms: At their worst the symptoms were moderate in the emergency department the symptoms are unchanged. The patient has not experienced similar symptoms in the past. The patient has been recently seen at the [facility] Emergency Department, yesterday, for similar complaints labs were performed. Pt reports she was diagnosed with covid 10 days ago. States she wasn't given anything at that time and sent home. States she came back yesterday for bodyaches, headaches and n/v/d. States she felt better, but then symptoms returned once she got home. . Historical: - Allergies: 10:04 No Known Allergies; ss - Home Meds: 10:04 Promethazine Oral [Active]; ss - PMHx: 10:04 sinus infection; ss - PSHx: 10:04 hysterectomy; ss - Immunization history:: Client reports having NOT received the Covid vaccine. - Social history:: Smoking status: Patient reports the use of cigarette tobacco products, smokes one pack cigarettes per day. ROS: 10:32 Respiratory: Negative for shortness of breath, cough, wheezing, and pleuritic chest kb pain. 10:32 Constitutional: Positive for body aches, fatigue, malaise. 10:32 Abdomen/GI: Positive for nausea, vomiting, and diarrhea, Negative for abdominal pain. 10:32 Neuro: Positive for headache. 10:32 All other systems are negative. Exam: 10:32 Constitutional: This is a well developed, well nourished patient who is awake, alert, kb and in no acute distress. Head/Face: Normocephalic, atraumatic. ENT: Moist Mucous membranes Respiratory: Respirations even and unlabored. No increased work of breathing, no retractions or nasal flaring. Skin: Warm, dry with normal turgor. Normal color. MS/ Extremity: Pulses equal, no cyanosis. Neurovascular intact. Full, normal range of motion. Neuro: Awake and alert, GCS 15, oriented to person, place, time, and situation. Moves all extremities. Normal gait. Psych: Awake, alert, with orientation to person, place and time. Behavior, mood, and affect are within normal limits. Vital Signs: 10:02 BP 115 / 81; Pulse 113; Resp 16; Temp 99.5(TE); Pulse Ox 97% on R/A; Weight 53.52 kg; ss Height 5 ft. 3 in. (160.02 cm); Pain 9/10; 10:02 Body Mass Index 20.90 (53.52 kg, 160.02 cm) ss MDM: 10:09 Patient medically screened. kb 10:28 Data reviewed: vital signs, nurses notes, old medical records, labs from yesterday kb reviewed. Data interpreted: Pulse oximetry: on room air is 97 %. Interpretation: normal. ED course: Mother was upset that pt was not admitted for observation yesterday for n/v/d. Was also mad that nothing was given to pt when she was diagnosed with COVID 10 days ago. I informed mother and pt that I would recheck labs and give medications to control her symptoms and get her feeling better, but there has to be an indication for admission to keep her for observation. Mother and pt discussed it and decided to leave. Mother states "You can discharge her, we are just going to leave.". Administered Medications: No medications were administered Disposition: 17:56 Co-signature as Attending Physician, Maulik Herrera MD I agree with the assessment and kdr plan of care. Disposition Summary: 03/19/21 10:21 Discharge Ordered Location: Home kb Condition: Stable kb Diagnosis - Coronavirus infection, unspecified kb - Nausea with vomiting, unspecified kb - Diarrhea, unspecified kb Followup: kb - With: Emergency Department - When: As needed - Reason: Worsening of condition Followup: kb - With: Private Physician - When: 2 - 3 days - Reason: Recheck today's complaints, Continuance of care, Re-evaluation by your physician Forms: - Medication Reconciliation Form kb - Thank You Letter kb - Antibiotic Education kb - Prescription Opioid Use kb Signatures: Dispatcher [employer] Jes Gale, JAMES CALDERÓN-Maulik Mckenzie MD MD kdr Smirch, Shelby, RN RN ss
--- NOTE | 2021-03-19 10:21 | ER ---
Nurse's Notes [facility] Name: Tiana Mcrae Age: 56 yrs Sex: Female : 1965 Arrival Date: 03/19/2021 Time: 09:49 Bed 4 Private MD: Diagnosis: Coronavirus infection, unspecified;Nausea with vomiting, unspecified;Diarrhea, unspecified Presentation: 03/19 10:02 Chief complaint: Parent and/or Guardian states: N/V/D that began 2 days ago. Pt was ss diagnosed with COVID 10 days ago. Pt also c/o body aches and headachce. Coronavirus screen: Client denies travel out of the [place] in the last 14 days. Ebola Screen: Patient denies exposure to infectious person. Patient denies travel to an Ebola-affected area in the 21 days before illness onset. Initial Sepsis Screen: Does the patient meet any 2 criteria? No. Patient's initial sepsis screen is negative. Does the patient have a suspected source of infection?. Risk Assessment: Do you want to hurt yourself or someone else? Patient reports no desire to harm self or others. Onset of symptoms was March 18, 2021. 10:02 Method Of Arrival: Wheelchair ss 10:02 Acuity: SD 3 ss Triage Assessment: 10:23 Headache History: The patient has had previous headaches. General: Appears ill, ll1 Behavior is calm, cooperative, appropriate for age. Pain: Denies pain. Neuro: No deficits noted. Historical: - Allergies: 10:04 No Known Allergies; ss - Home Meds: 10:04 Promethazine Oral [Active]; ss - PMHx: 10:04 sinus infection; ss - PSHx: 10:04 hysterectomy; ss - Immunization history:: Client reports having NOT received the Covid vaccine. - Social history:: Smoking status: Patient reports the use of cigarette tobacco products, smokes one pack cigarettes per day. Screenin:22 Abuse screen: Denies threats or abuse. Nutritional screening: No deficits noted. ll1 Tuberculosis screening: No symptoms or risk factors identified. Fall Risk IV access (20 points). Gait- Weak (10 pts.). Total Addison Fall Scale indicates Low Risk Score (25-44 pts). Fall prevention measures have been instituted. Side Rails Up X 2 Frequent Obs/Assesments occuring As available Patient and Family Educated on Fall Prevention Program and strategies. Assessment: 10:23 Reassessment: No changes from previously documented assessment. Patient and/or family ll1 updated on plan of care and expected duration. Pain level reassessed. Vital Signs: 10:02 BP 115 / 81; Pulse 113; Resp 16; Temp 99.5(TE); Pulse Ox 97% on R/A; Weight 53.52 kg; ss Height 5 ft. 3 in. (160.02 cm); Pain 9/10; 10:02 Body Mass Index 20.90 (53.52 kg, 160.02 cm) ED Course: 09:49 Patient arrived in ED. mr 10:04 Triage completed. ss 10:04 Arm band placed on right wrist. ss 10:07 [facility]C [facility] kb 10:07 Maulik Herrera MD is Attending Physician. kb 10:17 Notified Nurse Practitioner and/or Physician News Broadcaster of refusing blood work/IV at [facility] this time. 10:18 Mary Thompson, AMAN is Primary Nurse. 1 Administered Medications: No medications were administered Outcome: 10:21 Discharge ordered by . kb 10:21 Discharged to home via wheelchair. ll1 10:21 Condition: stable 10:21 Discharge instructions given to left without discharge instructions Instructed on 10:24 Patient left the ED. 1 Signatures: Jes Estrella FNP-C FNP-Mai Sandi FischerSimin RN RN Mary Thompson RN RN ll1
[2021-03-19 10:28] VITALS: BP 115/81; TEMP 99.5; O2SAT 97
== END 2021-03-19 10:24 | disposition home or self-care (01) ==
LOC: ER 09:47
DX: U07.1 COVID-19 (principal); R19.7 Diarrhea, unspecified; F17.210 Nicotine dependence, cigarettes, uncomplicated
CPT/HCPCS: 99281

== ENCOUNTER 2022-04-11 17:13 | Emergency (ER) | payer SELFPAY ==
--- OUTSIDE RECORDS SUMMARY | 2022-04-11 17:16 | XMS REPORT | Continuity of Care Document ---
:1965 Author Organization [facility] t Address [address] [place] [address] Care Team Providers Name Role Phone PCP, PATIENT DOES NOT HAVE A Primary Care Physician Unavaila Krysta Zhou DO Attending Clinician KRYSTA LOUIS Attending Clinician Unavailable KRYSTA LOUIS Admitting Clinician Unavailable Payers Payer Name Policy Type Policy Number Effective Date Expiration Date S ource Problems Condition Condition Condition Status Onset Resolution Last Treating Co mments Source Name Details Category Date Date Treatment Clinician Date No known No known Disease Unive rs active active ity of problems problems [facility] Allergies, Adverse Reactions, Alerts Allergy Allergy Status Severity Reaction(s) Onset Inactive Treating Comm ents Source Name Type Date Date Clinician NO KNOWN Drug Active Univers ALLERGIE Class ity of S [facility] Social History Social Habit Start Date Stop Date Quantity Comments Source Exposure to Not sure [facility] SARS-CoV-2 (event) Medica l Branch Sex Assigned At [birth year] [facility] 00:00:00 00:00:00 [facility] Smoking Status Start Date Stop Date Source Unknown if ever smoked [facility] Medications Ordered Filled Start Stop Current Ordering Indication Dosage Frequency Signature Comments Components Source Medication Medication Date Date Medication? Clinician (SIG) Name Name acetaminoph 2020-05- No 650mg 650 mg, U nivers en 05-19 Oral, ity of (TYLENOL) 18:45: 17:55 ONCE, [place] tablet 650 00 :00 dose, On Medic al mg Fri Branch 03/19/21 at 1245, RONAN ketorolac 2020-05 No 30mg 30 mg, Unive rs (TORADOL) 05-19 Slow IV ity of injection 18:45: 17:55 Push, [place] 30 mg 00 :00 ONCE, 1 Medical dose, On Branch 03/19/21 at 1245, RONAN
Fa culty member approving Restricted medication : KRYSTA LOUIS ondansetron 2020-05- No 4mg 4 mg, Slow Univers (ZOFRAN -03-19 IV Push, ity of (PF)) 18:45: 17:55 ONCE, 1 [place] injection 4 00 :00 dose, On Medi gracie mg Fri Branch 03/19/21 at 1245, RONAN NaCl 0.9% 2020-05 No 1000mL at 999 Uni vers (NS) bolus 05-19 mL/hr, ity of infusion 18:45: 19:55 1,000 mL, [place] as 1,000 mL 00 :00 IV Medical Infusion, Branch ONCE, 1 dose, On Mon03/19/21 at 1245, RONAN albuterol 2020-05 Yes [id number] 2{puff} Inhale 2 Univers 90 1-19 Puffs ity of mcg/actuati 00:00: every 4 [place] as on inhaler 00 (four) Medical hours as Branch needed for Wheezing or Shortness of Breath. ondansetron 2020-05 Yes [id number] 4mg Take 1 Univers (ZOFRAN 1-19 tablet by ity of ODT) 4 mg 00:00: mouth [place] disintegrat 00 every 8 Medic al ing tablet (eight) Branch hours as needed for Nausea and Vomiting (N/V). benzonatate 2020-05 Yes [id number] 100mg Take 1 Univers 100 mg 1-19 capsule by ity of capsule 00:00: mouth 3 [place] 00 (three) Medical times Branch daily as needed for Cough. bromphenira 2020-05 Yes [id number] 5mL Take 5 mL Univers mine-pseudo 1-19 by mouth 4 it y of ephedrine-D 00:00: (four) [place] M (BROMFED 00 times Medical DM) 2-30-10 daily as Bran ch mg/5 mL needed for syrup Cold symptoms. Vital Signs Vital Name Observation Time Observation Value Comments Source Systolic blood 2021-03-19 20:00:00 102 mm[Hg] Univer sity of pressure [facility] Diastolic blood 2021-03-19 20:00:00 73 mm[Hg] Unive rsity of [facility] Heart rate 2021-03-19 20:00:00 81 /min [facility] Respiratory rate 2021-03-19 20:00:00 14 /min [facility] Oxygen saturation in 2021-03-19 20:00:00 97 /min [facility] Arterial blood by [facility] Pulse oximetry [place] Body temperature 2021-03-19 17:34:00 39.11 Denise [facility] Body weight 2021-03-19 17:34:00 53.524 kg [facility] Procedures Procedure Date / Time Performed Performing Clinician Sourc e XR CHEST 1 VW 2021-03-19 18:10:58 Krysta Louis [facility] COMP. METABOLIC PANEL 2021-03-19 17:53:00 Krysta Louis [facility] ([id number]) [facility] CBC WITH DIFF 2021-03-19 17:53:00 Krysta Louis [facility] CONSENT/REFUSAL FOR 2021-03-19 17:29:16 Doctor Unassigned, No [facility] DIAGNOSIS AND Name [facility] TREATMENT NOTICE OF PRIVACY 2021-03-19 17:27:40 Doctor Unassigned, No [facility] PRACTICES Name [facility] Encounters Start End Encounter Admission Attending Care Care Encounter Source Date/Time Date/Time Type Type Clinicians Facility Department ID 2021-03-19 2021-03-19 Emergency ROB Louis [id number] Univers 11:37:00 14:26:00 Krysta MOORE [id number] Agustina [id number] [facility] [id number] [facility] 084 Branch 2021-03-19 2021-03-19 Emergency X ROB LOUIS ERT [id number] Univers 11:37:00 14:26:00 KRYSTA anton [facility] Results Test Description Test Time Test Comments Results Result Comments Source CBC WITH DIFF 2021-03-19 19:00:58 Test Item Value Reference Range Interpretation Comme nts WBC (test code = 6690-2) See_Comment H [A utomated message] The system which ge nerated this result transmit unique reference range: 4.30 - 1 1.10 10*3/?L. The reference r talya was not used to interpr et this result as michael l/abnormal. RBC (test code = 789-8) See_Comment L [Au tomated message] The system which ge nerated this result transmit unique reference range: 3.93 - 5 .25 10*6/?L. The reference r talya was not used to interpr et this result as michael l/abnormal. HGB (test code = 718-7) 11.6 g/dL 11.6-15.0 HCT (test code = 4544-3) 31.1 % 35.7-45.2 L MCV (test code = 787-2) 89.6 fL 80.6-95.5 MCH (test code = 785-6) 33.4 pg 25.9-32.8 H MCHC (test code = 786-4) 37.3 g/dL 31.6-35.1 H RDW-SD (test code = 42.0 fL 39.0-49.9 57057-7) RDW-CV (test code = 788-0) 13.0 % 12.0-15.5 PLT (test code = 777-3) See_Comment [Au tomated message] The system which ge nerated this result transmit unique reference range: 166 - 35 8 10*3/?L. The reference r talya was not used to interpr et this result as michael l/abnormal. MPV (test code = 83738-5) 9.4 fL 9.5-12.9 L NRBC/100 WBC (test code = See_Comment [ Automated message] The [id number]) system which [employer] nerated this result transmit unique reference range: 0.0 - 10 .0 /100 WBCs. The reference r talya was not used to interpr et this result as michael l/abnormal. NRBC x10^3 (test code = <0.01 See_Comment [Au tomated message] The 3558818356) system which ge nerated this result transmit unique reference range: 10*3/?L. The reference range was not used to interpret th is result as normal/abnormal . GRAN MAT (NEUT) % (test 83.6 % code = 770-8) IMM GRAN % (test code = 1.80 % 0272756962) LYMPH % (test code = 9.5 % 736-9) MONO % (test code = 4.7 % 5905-5) EOS % (test code = 713-8) 0.0 % BASO % (test code = 706-2) 0.4 % GRAN MAT x10^3(ANC) (test 14.49 10*3/uL 1.88-7.09 H code = 4638538161) IMM GRAN x10^3 (test code 0.31 10*3/uL 0.00-0.06 H = 3062365018) LYMPH x10^3 (test code = 1.64 10*3/uL 1.32-3.29 731-0) MONO x10^3 (test code = 0.81 10*3/uL 0.33-0.92 742-7) EOS x10^3 (test code = <0.03 0.03-0.39 L 711-2) BASO x10^3 (test code = 0.07 10*3/uL 0.01-0.07 704-7) BANDS (test code = MARKED INCREASED A 3287611074) DOHLE BODIES (test code = Present A 7792-5) Lab Interpretation (test Abnormal code = 73618-4) [id number][facility]20[facility]-19 18:30:14 Test Item Value Reference Range Interpretation Comments NA (test code = 129 mmol/L 135-145 L 0467250606) K (test code = 3.3 mmol/L 3.5-5.0 L 4511928640) CL (test code = 97 mmol/L 98-108 L 5920478687) CO2 TOTAL (test code = 23 mmol/L 23-31 0302323279) AGAP (test code = 2-16 4917068879) BUN (test code = 8 mg/dL 7-23 4651308800) GLUCOSE (test code = 124 mg/dL 70-110 H 8151999085) CREATININE (test code = 0.71 mg/dL 0.50-1.04 8778817561) TOTAL BILI (test code = 0.7 mg/dL 0.1-1.2 4014805821) CALCIUM (test code = 8.4 mg/dL 8.6-10.6 L 6901972099) T PROTEIN (test code = 9.2 g/dL 6.3-8.2 H 8448273758) ALBUMIN (test code = 3.7 g/dL 3.5-5.0 3493580538) ALK PHOS (test code = 81 U/L 34-122 0717258440) ALTv (test code = 19 U/L 5-35 2-6) AST(SGOT) (test code = 40 U/L 13-40 6707037675) eGFR (test code = mL/min/1.73m2 0621043787) KEYONNA (test code = KEYONNA) Association of Glomerular Filtration Rate (GFR) and Staging of Kidney Disease* + --+ --+ ------+| GFR (mL/min/1.73 m2) ?| With Kidney Damage ?| ?Without Kidney Damage+ --------+ --------+ +| ?>90 ?| ?Stage one ?| ? Normal ?+ ---+ ---+ -------+| ?60-89 ?| ?Stage two ?| ? Decreased GFR ? + --+ --+ ------+| ?30-59 ?| ?Stage three ?| ? Stage three ? + --+ --+ ------+| ?15-29 ?| ?Stage four ? | ? Stage four ?+ ---+ ---+ -------+| ?<15 (or dialysis) ? ?| ?Stage five ? | ? Stage five ?+ ---+ ---+ -------+ *Each stage assumes the associated GFR level has been in effect for at least three months. ?Stages 1 to 5, with or without kidney disease, indicate chronic kidney disease. Notes: Determination of stages one and two (with eGFR >59mL/min/1.73 m2) requires estimation of kidney damage for at least three months as defined by structural or functional abnormalities of the kidney, manifested by either:Pathological abnormalities or Markers of kidney damage (including abnormalities in the composition of the blood or urine or abnormalities in imaging tests). Lab Interpretation Abnormal (test code = 87397-1) [facility]"
--- NOTE | 2022-04-11 18:57 | RAD REPORT ---
EXAM DESCRIPTION: RAD - Thoracic Spine Ap/Lat - 04/11/2022 6:33 pm CLINICAL HISTORY: PAIN COMPARISON: No comparisons FINDINGS/IMPRESSION: Superior endplate deformity of one of the midthoracic vertebral bodies is age i ndeterminate. Osteopenia. No definite acute fracture. MRI or CT could exclude an acute fracture depen ding on level of clinical suspicion.
--- NOTE | 2022-04-11 18:57 | RAD REPORT ---
EXAM DESCRIPTION: RAD - Lumbar Spine 3 Views - 04/11/2022 6:33 pm CLINICAL HISTORY: PAIN COMPARISON: No comparisons FINDINGS: No acute fracture. No malalignment. No significant focal degenerative changes. IMPRESSION: No acute osseous abnormality involving the lumbar spine.
[2022-04-11] MEDS ORDERED: IBUPROFEN 400 MG TAB ONE (19:20)
[2022-04-11] MEDS ORDERED: IBUPROFEN 200 MG TAB PO ONE (19:21)
[2022-04-11] MEDS ORDERED: HYDROCODONE/APAP 7.5/325 MG TAB ONE (19:21)
[2022-04-11] MEDS ORDERED: LIDOCAINE 4% PATCH ONE (19:23)
[2022-04-11 19:53] LABS: Urine Blood Negative (Negative); Urine Glucose Negative (Negative); Urine Protein Negative (Negative)
[2022-04-11 20:25] LABS: Urine Bacteria <20 /HPF (<20); Urine Mucus Slight /HPF (None Seen); Urine RBC <5 /HPF (None Seen)
--- NOTE | 2022-04-11 20:28 | RAD REPORT ---
EXAM DESCRIPTION: CT - Thoracic Spine W/o Cont - 04/11/2022 8:09 pm CLINICAL HISTORY: Radiculopathy. pain COMPARISON: No comparisons TECHNIQUE: Axial CT imaging through the thoracic spine was performed with coronal and sagittal re-fo rmatted images. All CT scans are performed using dose optimization technique as appropriate and may include automated exposure control or mA/KV adjustment according to patient size. FINDINGS: Vertebral body heights and disc spaces are maintained. A compression fracture is not prese nt. No significant disc space narrowing. Mild thoracolumbar curvature. Thoracic spine alignment is within normal limits. 6 mm right upper lobe pulmonary nodule. Background of emphysema. Cardiomegaly. Nodular scarring in the lung apices. Intervertebral disc detail is inherently limited on CT without gross findings of canal compromise. IMPRESSION: No thoracic spine fracture identified. The suspected superior endplate deformity on the thoracic spine radiograph was probably stimulated by the patient's spinal curvature. 6 mm noncalcified right upper lobe pulmonary nodule. The patient has a background of emphysema. Six m ont follow up chest CT is recommended.
--- NOTE | 2022-04-11 20:29 | RAD REPORT ---
EXAM DESCRIPTION: CT - Spine Lumbar Wo Con - 04/11/2022 8:09 pm CLINICAL HISTORY: pain COMPARISON: No comparisons TECHNIQUE: Axial noncontrast CT imaging of the lumbar spine was performed with coronal and sagittal re-formatted images. All CT scans are performed using dose optimization technique as appropriate and may include automated exposure control or mA/KV adjustment according to patient size. FINDINGS: No acute lumbar spine fracture seen. No aggressive marrow pattern or malalignment. Free fl uid in the pelvis may be physiologic. Atherosclerosis. Paraspinal tissues are normal in thickness. No paraspinal abscess or hematoma seen. Intervertebral disc disease assessment is inherently limited by CT. Within these limitations, no high -grade canal stenosis suspected. IMPRESSION: No fracture of the lumbar spine identified. Consider MRI follow-up for assessment of disc disease if clinically desired.
--- NOTE | 2022-04-11 20:49 | ER ---
Nurse's Notes [facility] Name: Tiana Mcrae Age: 57 yrs Sex: Female : 1965 Arrival Date: 04/11/2022 Time: 17:15 Bed 26 Private MD: Diagnosis: Dorsalgia, unspecified;UTI/ Urinary tract infection, site not specified Presentation: 04/11 17:27 Chief complaint: Patient states: Lower severe back pain - 20 year chronic back pain ld1 history. Doctor said it says like scoliosis. Pt reports not knowing exactly what is wrong with her back. Coronavirus screen: At this time, the client does not indicate any symptoms associated with coronavirus-19. Ebola Screen: No symptoms or risks identified at this time. Initial Sepsis Screen: Does the patient meet any 2 criteria? No. Patient's initial sepsis screen is negative. Does the patient have a suspected source of infection? No. Patient's initial sepsis screen is negative. Risk Assessment: Do you want to hurt yourself or someone else? Patient reports no desire to harm self or others. Onset of symptoms was April 11, 2022. 17:27 Method Of Arrival: Ambulatory ld1 17:27 Acuity: SD 4 ld1 Triage Assessment: 17:29 General: Appears in no apparent distress. uncomfortable, Behavior is cooperative, ld1 appropriate for age, anxious, crying. Pain: Complains of pain in back Pain does not radiate. Pain currently is 10 out of 10 on a pain scale. EENT: No signs and/or symptoms were reported regarding the EENT system. Neuro: Level of Consciousness is awake, alert, obeys commands, Oriented to person, place, time, situation. Cardiovascular: Capillary refill < 3 seconds Patient's skin is warm and dry. Respiratory: Airway is patent Respiratory effort is even, unlabored. GI: Abdomen is flat, non-distended. : No signs and/or symptoms were reported regarding the genitourinary system. Derm: No signs and/or symptoms reported regarding the dermatologic system. Musculoskeletal: No signs and/or symptoms reported regarding the musculoskeletal system. 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 - Social history:: Smoking status: Patient reports the use of cigarette tobacco products, smokes one pack cigarettes per day. Patient/guardian denies using alcohol. Screenin:53 Abuse screen: Denies threats or abuse. Nutritional screening: No deficits noted. vc1 Tuberculosis screening: No symptoms or risk factors identified. Fall Risk Assessment: 21:12 Reassessment: Patient and/or family updated on plan of care and expected duration. Pain vc1 level reassessed. Patient is alert, oriented x 3, equal unlabored respirations, skin warm/dry/pink. Patient states feeling better. Patient states symptoms have improved. Vital Signs: 17:27 BP 129 / 76; Pulse 84; Resp 18; Temp 98.1(TE); Pulse Ox 100% on R/A; Weight 53.52 kg; ld1 Height 5 ft. 3 in. (160.02 cm); Pain 10/10; 17:27 Body Mass Index 20.90 (53.52 kg, 160.02 cm) ld1 ED Course: 17:15 Patient arrived in ED. mr 17:29 Triage completed. ld1 17:29 Arm band placed on right wrist. ld1 17:30 Marcos Hood PA is PHCP. cp 17:30 Solomon Matos DO is Attending Physician. cp 18:34 XRAY Lumbar Spine (3 Views) In Process Unspecified. EDMS 18:34 XRAY Thoracic Spine (Ap/lat) In Process Unspecified. EDMS 20:11 CT Thoracic Spine Wo Cont In Process Unspecified. EDMS 20:11 CT Lumbar Spine Wo Con In Process Unspecified. EDMS 20:53 My Cox, RN is Primary Nurse. vc1 20:54 No provider procedures requiring assistance completed. vc1 21:12 Patient did not have IV access during this emergency room visit. vc1 Administered Medications: 19:34 Drug: Lidoderm Patch 5 % (700 mg/patch) 1 patches Route: Topical; Site: affected area; vc1 19:34 Drug: Hydrocodone-Acetaminophen (7.5 mg-325 mg) 1 tabs Route: PO; vc1 19:34 Drug: Ibuprofen 600 mg Route: PO; vc1 Medication: 21:12 VIS not applicable for this client. vc1 Outcome: 20:48 Discharge ordered by . ashtyn 21:12 Discharged to home ambulatory. vc1 21:12 Condition: good 21:12 Discharge instructions given to patient, Instructed on discharge instructions, follow up and referral plans. medication usage, Demonstrated understanding of instructions, follow-up care, medications, Prescriptions given X 4. 21:12 Patient left the ED. vc1 Signatures: Dispatcher [employer] EDTN Sandi Fischer mr Marcos Hood, Janice Dunbar cp, RN RN ld1 My Cox RN RN vc1
--- NOTE | 2022-04-11 20:49 | EDPHYS ---
Physician Documentation [facility] Name: Tiana Mcrae Age: 57 yrs Sex: Female : 1965 Arrival Date: 04/11/2022 Time: 17:15 Bed 26 Private MD: ED Physician Solomon Matos HPI: 04/11 18:00 This 57 yrs old Black Female presents to ER via Ambulatory with complaints of Back Pain.cp 18:00 The symptoms are located in the mid and low back. Onset: The symptoms/episode cp began/occurred history of chronic back pain that became worse over past 2 days. The pain does not radiate. Associated signs and symptoms: Pertinent negatives: abdominal pain, chest pain, constipation, dysuria, fever, incontinence, numbness, tingling, weakness. The problem was sustained from a chronic condition. Modifying factors: the patient symptoms are aggravated by any movement. 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 - Social history:: Smoking status: Patient reports the use of cigarette tobacco products, smokes one pack cigarettes per day. Patient/guardian denies using alcohol. ROS: 18:05 Constitutional: Negative for body aches, chills, fever, poor PO intake. cp 18:05 Eyes: Negative for injury, pain, redness, and discharge. cp 18:05 ENT: Negative for drainage from ear(s), ear pain, sore throat, difficulty swallowing, difficulty handling secretions. 18:05 Neck: Negative for injury or acute deformity, pain with movement, pain at rest, stiffness. 18:05 Cardiovascular: Negative for chest pain, edema, palpitations. 18:05 Respiratory: Negative for cough, shortness of breath, wheezing. 18:05 Abdomen/GI: Negative for abdominal pain, nausea, vomiting, and diarrhea, constipation, bowel incontinence. 18:05 Back: Positive for pain at rest, pain with movement. 18:05 : Negative for urinary symptoms, difficulty urinating, bladder incontinence. 18:05 Neuro: Negative for altered mental status, dizziness, headache, numbness, tingling, weakness. 18:05 All other systems are negative. Exam: 18:10 Constitutional: The patient appears in no acute distress, alert, awake, cp non-diaphoretic, non-toxic, well developed, well nourished, uncomfortable. 18:10 Head/Face: Normocephalic, atraumatic. cp 18:10 Eyes: Periorbital structures: appear normal, Conjunctiva: normal, no exudate, no injection, Sclera: no appreciated abnormality, Lids and lashes: appear normal, bilaterally. 18:10 ENT: External ear(s): are unremarkable, Nose: is normal, Mouth: Lips: moist, Oral mucosa: pink and intact, moist, Posterior pharynx: Airway: no evidence of obstruction, patent. 18:10 Neck: ROM/movement: is normal, is supple, without pain, no range of motions limitations. 18:10 Chest/axilla: Inspection: normal. 18:10 Cardiovascular: Rate: normal, Rhythm: regular, Edema: is not appreciated, JVD: is not appreciated. 18:10 Respiratory: the patient does not display signs of respiratory distress, Respirations: normal, no use of accessory muscles, no retractions, labored breathing, is not present, Breath sounds: are clear throughout, no decreased breath sounds, no stridor, no wheezing. 18:10 Abdomen/GI: Inspection: abdomen appears normal, Palpation: abdomen is soft and non-tender, in all quadrants. 18:10 Back: pain, that is severe, of the lumbar area, left low back and left mid back, ROM is painful, with all movement. 18:10 Skin: cellulitis, is not appreciated, no rash present. 18:10 Neuro: Orientation: to person, place \T\ time. Mentation: is normal, Motor: moves all fours, strength is normal, Sensation: is normal. Vital Signs: 17:27 BP 129 / 76; Pulse 84; Resp 18; Temp 98.1(TE); Pulse Ox 100% on R/A; Weight 53.52 kg; ld1 Height 5 ft. 3 in. (160.02 cm); Pain 10/10; 17:27 Body Mass Index 20.90 (53.52 kg, 160.02 cm) ld1 MDM: 17:33 Patient medically screened. cp 19:00 Differential diagnosis: chronic back pain, Pyelonephritis ruptured disc, spinal injury, cp Ureterolithiasis vertebral fracture. 20:48 Data reviewed: vital signs, nurses notes, lab test result(s), radiologic studies, CT cp scan, plain films. 20:48 Counseling: I had a detailed discussion with the patient and/or guardian regarding: the cp historical points, exam findings, and any diagnostic results supporting the discharge/admit diagnosis, lab results, radiology results, the need for outpatient follow up, a family practitioner, to return to the emergency department if symptoms worsen or persist or if there are any questions or concerns that arise at home. 20:48 Response to treatment: the patient's symptoms have markedly improved after treatment, cp and as a result, I will discharge patient. 04/11 19:52 Order name: Urine Culture sb4 04/11 17:35 Order name: XRAY Lumbar Spine (3 Views); Complete Time: 19:16 04/11 19:16 Interpretation: Report reviewed. 04/11 17:35 Order name: XRAY Thoracic Spine (Ap/lat); Complete Time: 19:16 04/11 19:55 Interpretation: Report reviewed. 04/11 19:53 Order name: Urine Dipstick-Ancillary; Complete Time: 19:54 EDMS 04/11 20:44 Interpretation: Normal except: UNIT Positive. 04/11 20:10 Order name: Urine Microscopic Only; Complete Time: 20:43 EDMS 04/11 17:35 Order name: Urine Dipstick-Ancillary (obtain specimen); Complete Time: 19:52 04/11 19:20 Order name: CT Thoracic Spine Wo Cont; Complete Time: 20:43 04/11 20:43 Interpretation: Report reviewed. 04/11 19:20 Order name: CT Lumbar Spine Wo Con; Complete Time: 20:43 04/11 20:44 Interpretation: Report reviewed. cp Administered Medications: 19:34 Drug: Lidoderm Patch 5 % (700 mg/patch) 1 patches Route: Topical; Site: affected area; vc1 19:34 Drug: Hydrocodone-Acetaminophen (7.5 mg-325 mg) 1 tabs Route: PO; vc1 19:34 Drug: Ibuprofen 600 mg Route: PO; vc1 Disposition: 04/12 18:49 Co-signature as Attending Physician, Solomon Matos DO I was immediately available onsite ms3 in the emergency department for consultation in the care of the patient. Disposition Summary: 04/11/22 20:48 Discharge Ordered Location: Home cp Problem: an acute exacerbation cp Symptoms: have improved cp Condition: Stable cp Diagnosis - Dorsalgia, unspecified cp - UTI/ Urinary tract infection, site not specified cp Followup: cp - With: Private Physician - When: 2 - 3 days - Reason: Recheck today's complaints Discharge Instructions: - Discharge Summary Sheet cp - Chronic Back Pain cp - Urinary Tract Infection, Adult cp Forms: - Medication Reconciliation Form cp - Thank You Letter cp - Antibiotic Education cp - Prescription Opioid Use cp Prescriptions: - Lidoderm 5 % Topical adhesive patch,medicated - apply 1 patch by TOPICAL route once daily for 7 days; 7 patch; Refills: 0, cp Product Selection Permitted - Diclofenac Sodium 75 mg Oral Tablet Sustained Release - take 1 tablet by ORAL route 2 times per day; 30 tablet; Refills: 0, Product cp Selection Permitted - Macrobid 100 mg Oral Capsule - take 1 capsule by ORAL route every 12 hours for 7 days; 14 capsule; Refills: 0, cp Product Selection Permitted - methocarbamol 500 mg Oral Tablet - take 1 tablet by ORAL route 3 times per day; 30 tablet; Refills: 0, Product cp Selection Permitted Signatures: Dispatcher [employer] EDMS Marcos Hood PA PA cp Sims, Marcus, DO DO ms3 Janice Coronel RN RN ld1 My Cox RN RN vc1 Corrections: (The following items were deleted from the chart) 04/11 18:44 17:35 Urine Test ordered. cp iw
[2022-04-11 21:51] VITALS: BP 129/76; TEMP 98.1; O2SAT 100
== END 2022-04-11 21:12 | disposition home or self-care (01) ==
LOC: ER 17:13
DX: N39.0 Urinary tract infection, site not specified (principal); F17.210 Nicotine dependence, cigarettes, uncomplicated
CPT/HCPCS: 72070; 72100; 72128; 72131; 81003; 81015; 87086; 87088; 99283; J2001

== ENCOUNTER 2022-05-25 01:04 | Emergency (ER) | payer SELFPAY ==
--- OUTSIDE RECORDS SUMMARY | 2022-05-25 01:07 | XMS REPORT | Continuity of Care Document ---
:1965 Author Organization [facility] t Address [address] [place] [address] [place] [address] Care Team Providers Name Role Phone Pcp, Patient Does Not Have A Primary Care Physician +[id number] SAURAV ASHBY Attending Clinician Unavailable Saurav Esquivel Attending Clinician Krysta Louis DO Attending Clinician KRYSTA LOUIS Attending Clinician Unavailable KRYSTA LOUIS Admitting Clinician Unavailable Payers Payer Name Policy Type Policy Number Effective Date Expiration Date S samson Problems Condition Condition Condition Status Onset Resolution Last Treating Co mments Source Name Details Category Date Date Treatment Clinician Date No known No known Disease Unive rs active active ity of problems problems [facility] Allergies, Adverse Reactions, Alerts Allergy Allergy Status Severity Reaction(s) Onset Inactive Treating Comm ents Source Name Type Date Date Clinician NO KNOWN Drug Active Univers ALLERGIE Class ity of S [facility] Social History Social Habit Start Date Stop Date Quantity Comments Source Exposure to 2022-04-03 2022-04-13 Not sure [facility] SARS-CoV-2 (event) 00:00:00 16:18:00 Medica l Branch Sex Ass[birth year] At [birth year] [facility] 00:00:00 00:00:00 Medical Branch Smoking Status Start Date Stop Date Source Tobacco smoking consumption Univ [facility] Medical unknown Branch Medications Ordered Filled Start Stop Current Ordering Indication Dosage Frequency Signature Comments Components Source Medication Medication Date Date Medication? Clinician (SIG) Name Name FENTanyl PF 2021-05 No 50ug 50 mcg, Un noel (SUBLIMAZE 06-14 Intramuscu it y of (PF)) 22:45: 22:59 lar, ONCE, [place] injection 00 :00 1 dose, On Medi gracie 50 mcg Wed Branch 04/13/22 at 1645, STAT acetaminoph 2020-05 No 650mg 650 mg, U nivers en 05-19 Oral, ity of (TYLENOL) 18:45: 17:55 ONCE, 1 [place] tablet 650 00 :00 dose, On Medic al mg Mon Branch 03/19/21 at 1245, RONAN ketorolac 2020-05 No 30mg 30 mg, Unive rs (TORADOL) 05-19 Slow IV ity of injection 18:45: 17:55 Push, [place] 30 mg 00 :00 ONCE, 1 Medical dose, On Branch Mon03/19/21 at 1245, RONAN
Fa culty member approving Restricted medication : KRYSTA LOUIS ondansetron 2020-05 No 4mg 4 mg, Slow Univers (ZOFRAN 05-19 IV Push, ity of (PF)) 18:45: 17:55 ONCE, 1 [place] injection 4 00 :00 dose, On Medi gracie mg Mon Branch 03/19/21 at 1245, RONAN NaCl 0.9% 2020-05 No 1000mL at 999 Uni vers (NS) bolus 05-19 mL/hr, ity of infusion 18:45: 19:55 1,000 mL, [place] as 1,000 mL 00 :00 IV Medical Infusion, Branch ONCE, 1 dose, On Mon03/19/21 at 1245, RONAN albuterol 2020-05 Yes [id number] 2{puff} Inhale 2 Univers 90 1-19 Puffs ity of mcg/actuati 00:00: every 4 [place] as on inhaler 00 (four) Medical hours as Branch needed for Wheezing or Shortness of Breath. ondansetron 2020-05 Yes [id number] 4mg Take 1 Univers (ZOFRAN 1-19 tablet by ity of ODT) 4 mg 00:00: mouth [place] disintegrat 00 every 8 Medic al ing tablet (eight) Branch hours as needed for Nausea and Vomiting (N/V). benzonatate 2020-05 Yes [id number] 100mg Take 1 Univers 100 mg 1-19 capsule by ity of capsule 00:00: mouth 3 [place] 00 (three) Medical times Branch daily as needed for Cough. bromphenira 2020-05 Yes [id number] 5mL Take 5 mL Univers mine-pseudo 1-19 by mouth 4 it y of ephedrine-D 00:00: (four) [place] M (BROMFED 00 times Medical DM) 2-30-10 daily as Bran ch mg/5 mL needed for syrup Cold symptoms. albuterol 2020-05 Yes [id number] 2{puff} Inhale 2 Univers 90 1-19 Puffs ity of mcg/actuati 00:00: every 4 [place] as on inhaler 00 (four) Medical hours as Branch needed for Wheezing or Shortness of Breath. ondansetron 2020-05 Yes [id number] 4mg Take 1 Univers (ZOFRAN 1-19 tablet by ity of ODT) 4 mg 00:00: mouth [place] disintegrat 00 every 8 Medic al ing tablet (eight) Branch hours as needed for Nausea and Vomiting (N/V). benzonatate 2020-05 Yes [id number] 100mg Take 1 Univers 100 mg 1-19 capsule by ity of capsule 00:00: mouth 3 [place] 00 (three) Medical times Branch daily as needed for Cough. bromphenira 2020-05 Yes [id number] 5mL Take 5 mL Univers mine-pseudo 1-19 by mouth 4 it y of ephedrine-D 00:00: (four[place] M (BROMFED 00 times Medical DM) 2-30-10 daily as Bran ch mg/5 mL needed for syrup Cold symptoms. Vital Signs Vital Name Observation Time Observation Value Comments Source Systolic blood 2022-04-13 22:18:00 143 mm[Hg] Univer sity [facility] Diastolic blood 2022-04-13 22:18:00 95 mm[Hg[facility] Heart rate 2022-04-13 22:18:00 72 /min Universi ty [facility] Body temperature 2022-04-13 22:18:00 36.5 Denise [facility] ersity [facility] Respiratory rate 2022-04-13 22:18:00 20 /min [facility] ersity of [facility] Body height 2022-04-13 22:18:00 160 cm Universi [facility] Body weight 2022-04-13 22:18:00 [facility] BMI 2022-04-13 22:18:00 21.26 kg/m2 [facility] Oxygen saturation in 2022-04-13 22:18:00 99 /min University of Arterial blood by [facility] Pulse oximetry Branch Systolic blood 2021-03-19 20:00:00 102 mm[Hg] Univer sity of pressure [facility] Diastolic blood 2021-03-19 20:00:00 73 mm[Hg] Unive rsity of [facility] Heart rate 2021-03-19 20:00:00 81 /min [facility] Respiratory rate 2021-03-19 20:00:00 14 /min [facility] saturation in 2021-03-19 20:00:00 97 /min [facility] Arterial blood by [facility] Pulse oximetry Branch Body temperature 2021-03-19 17:34:00 39.11 [facility]ise [facility] weight 2021-03-19 17:34:00 53.524 kg [facility] Procedures Procedure Date / Time Performed Performing Clinician [facility] e CONSENT/REFUSAL FOR 2022-04-13 22:10:03 Doctor Unassigned, No [facility] [place] DIAGNOS[facility] AND Name [facility] TREATMENT XR CHEST 1 VW 2021-03-19 18:10:[address] [facility] COMP. METABOLIC PANEL 2021-03-19 17:53:[address] [facility] ([id number]) [facility] CBC WITH DIFF 2021-03-19 17:53:[address] [facility] CONSENT/REFUSAL FOR 2021-03-19 17:29:16 Doctor Unassigned, No [facility] [place] DIAGNOSIS AND Name Medical Branch TREATMENT NOTICE OF PRIVACY 2021-03-19 17:27:40 Doctor Unassigned, No Univ ersity [facility] PRACTICES Name [facility] Branch Encounters Start End Encounter Admission Attending Care Care Encounter Source Date/Time Date/Time Type Type Clinicians Facility Department ID 2022-04-13 2022-04-13 Emergency [facility] [id number] Univers 16:20:00 17:17:00 SAURAV anton [facility] 2022-04-13 2022-04-13 Emergency Isma [facility] [id number] Univers 16:20:00 17:17:00 Saurav [place] [id number] i ty of [place] [id number] [facility] [id number] [address] 2021-03-19 2021-03-19 Emergency [facility] [id number] Univers 11:37:00 14:26:00 Krysta Rome MOORE [id number] ity [facility] [id number] [facility] [id number] [address] 2021-03-19 2021-03-19 Emergency [facility] ERT [id number] Univers 11:37:00 14:26:00 KRYSTA anton [facility] Results Test Description Test Time Test Comments Results Result Comments Source CBC WITH DIFF 2021-03-19 19:00:58 Test Item Value Reference Range Interpretation Comme nts WBC (test code = 6690-2) See_Comment H [A utomated message] The system which Hoppit nerated this result transmit unique reference range: 4.30 - 1 1.10 10*3/?L. The reference r talya was not used to interpr et this result as michael l/abnormal. RBC (test code = 789-8) See_Comment L [Au tomated message] The system which Hoppit nerated this result transmit unique reference range: [...] RDW-SD (test code = 42.0 fL 39.0-49.9 73485-4) RDW-CV (test code = 788-0) 13.0 % 12.0-15.5 PLT (test code = 777-3) See_Comment [Au tomated message] The system which ge nerated this result transmit unique reference range: 166 - 35 8 10*3/?L. The reference r talya was not used to interpr et this result as michael l/abnormal. MPV (test code = 81706-7) 9.4 fL 9.5-12.9 L NRBC/100 WBC (test code = See_Comment [ Automated message] The [id number]) system which ge nerated this result transmit unique reference range: 0.0 - 10 .0 /100 WBCs. The reference r talya was not used to interpr et this result as michael l/abnormal. NRBC x10^3 (test code = <0.01 See_Comment [Au tomated message] The 1303783331) system which ge nerated this result transmit unique reference range: 10*3/?L. The reference range was not used to interpret th is result as normal/abnormal . GRAN MAT (NEUT) % (test 83.6 % code = 770-8) IMM GRAN % (test code = 1.80 % 8235565252) LYMPH % (test code = 9.5 % 736-9) MONO % (test code = 4.7 % 5905-5) EOS % (test code = 713-8) 0.0 % BASO % (test code = 706-2) 0.4 % GRAN MAT x10^3(ANC) (test 14.49 10*3/uL 1.88-7.09 H code = 0167751078) IMM GRAN x10^3 (test code 0.31 10*3/uL 0.00-0.06 H = 8076726780) LYMPH x10^3 (test code = 1.64 10*3/uL 1.32-3.29 731-0) MONO x10^3 (test code = 0.81 10*3/uL 0.33-0.92 742-7) EOS x10^3 (test code = <0.03 0.03-0.39 L 711-2) BASO x10^3 (test code = 0.07 10*3/uL 0.01-0.07 704-7) BANDS (test code = MARKED INCREASED A 6578220280) DOHLE BODIES (test code = Present A 7792-5) Lab Interpretation (test Abnormal code = 37576-8) [facility]. METABOLIC PANEL (09491)2021-03-19 18:30:14 Test Item Value Reference Range Interpretation Comments NA (test code = 129 mmol/L 135-145 L 5661270335) K (test code = 3.3 mmol/L 3.5-5.0 L 0528050513) CL (test code = 97 mmol/L 98-108 L 0999088929) CO2 TOTAL (test code = 23 mmol/L 23-31 6190579832) AGAP (test code = 2-16 6867498128) BUN (test code = 8 mg/dL 7-23 6967146133) GLUCOSE (test code = 124 mg/dL 70-110 H 2260621173) CREATININE (test code = 0.71 mg/dL 0.50-1.04 0796542174) TOTAL BILI (test code = 0.7 mg/dL 0.1-1.9 6222977405) CALCIUM (test code = 8.4 mg/dL 8.6-10.6 L 3965183440) T PROTEIN (test code = 9.2 g/dL 6.3-8.2 H 5774957736) ALBUMIN (test code = 3.7 g/dL 3.5-5.0 3119843293) ALK PHOS (test code = 81 U/L 34-122 9242935011) ALTv (test code = 19 U/L 5-35 1742-6) AST(SGOT) (test code = 40 U/L 13-40 2395954322) eGFR (test code = mL/min/1.73m2 2076266737) KEYONNA (test code = KEYONNA) Association of [...] tests). Lab Interpretation Abnormal (test code = 09193-7) [facility]"
[2022-05-25] MEDS ORDERED: HYDROCODONE/CHLORPHEN 5 ML/OSYR ONE (01:26)
[2022-05-25 02:23] LABS: SARS-COV-2 RT PCR NEGATIVE (NEGATIVE)
[2022-05-25] MEDS ORDERED: levoFLOXacin 250 MG TAB ONE (02:36)
--- NOTE | 2022-05-25 02:38 | ER ---
Nurse's Notes [facility] Name: Tiana Mcrae Age: 57 yrs Sex: Female : 1965 Arrival Date: 05/25/2022 Time: 01:06 Bed 4 Private MD: Diagnosis: Pneumonia, unspecified organism Presentation: 05/25 01:23 Chief complaint: Patient states: green productive cough with congestion and headache of pf1 8,onset 4 days. Coronavirus screen: Vaccine status: Patient reports being unvaccinated. Client denies travel out of the [place] in the last 14 days. Client presents with at least one sign or symptom that may indicate coronavirus-19. Ebola Screen: Patient negative for fever greater than or equal to 101.5 degrees Fahrenheit, and additional compatible Ebola Virus Disease symptoms. Initial Sepsis Screen: Does the patient meet any 2 criteria? No. Patient's initial sepsis screen is negative. Does the patient have a suspected source of infection? No. Patient's initial sepsis screen is negative. Risk Assessment: Do you want to hurt yourself or someone else? Patient reports no desire to harm self or others. Onset of symptoms was May 20, 2022. 01:23 Method Of Arrival: Ambulatory pf1 01:23 Acuity: SD 3 pf1 Triage Assessment: 02:10 General: Appears. kd3 Historical: - Allergies: 01:25 No Known Allergies; pf1 - PMHx: 01:25 sinus infection; Migraine; Chronic back pain; pf1 - PSHx: 01:25 hysterectomy; pf1 - Immunization history:: Adult Immunizations not up to date, Client reports having NOT received the Covid vaccine. Last tetanus immunization: > 10 years ago Flu vaccine is not up to date. It has been more than one year since last vaccine. - Social history:: Smoking status: Patient reports the use of cigarette tobacco products, Patient uses alcohol, but reports only rare drinking. Patient/guardian denies using street drugs. - Family history:: not pertinent. - Hospitalizations: : No recent hospitalization is reported. Screenin:26 [facility] ED Fall Risk Assessment (Adult) History of falling in the last 3 months, pf1 including since admission No falls in past 3 months (0 pts) Confusion or Disorientation No (0 pts) Intoxicated or Sedated No (0 pts) Impaired Gait No (0 pts) Mobility Assist Device Used No (0 pt) Altered Elimination No (0 pt) Score/Fall Risk Level 0 - 2 = Low Risk Oriented to surroundings, Maintained a safe environment, Educated pt \T\ family on fall prevention, incl call for assistance when getting out of bed, Assessed \T\ reinforced patient's understanding of fall precautions, Provided non-skid footwear, Hourly rounding (assess needs \T\ fall precautionary measures) done, Used ambulatory aids as needed (educated on \T\ assisted with), Used gait belt as appropriate. Abuse screen: Denies threats or abuse. Nutritional screening: No deficits noted. Tuberculosis screening: No symptoms or risk factors identified. Assessment: 01:30 General: Appears in no apparent distress. uncomfortable, Behavior is calm, cooperative, jb4 appropriate for age. Pain: Complains of pain in face and back Pain does not radiate. Pain currently is 8 out of 10 on a pain scale. Neuro: Level of Consciousness is awake, alert, obeys commands, Oriented to person, place, time, situation. Cardiovascular: Patient's skin is warm and dry. Respiratory: Airway is patent Respiratory effort is even, unlabored, Respiratory pattern is regular, symmetrical. GI: No signs and/or symptoms were reported involving the gastrointestinal system. : No signs and/or symptoms were reported regarding the genitourinary system. EENT: No signs and/or symptoms were reported regarding the EENT system. Derm: Skin is intact, Skin is pink, warm \T\ dry. 02:30 Reassessment: Patient appears in no apparent distress at this time. Patient and/or jb4 family updated on plan of care and expected duration. Pain level reassessed. Patient is alert, oriented x 3, equal unlabored respirations, skin warm/dry/pink. Vital Signs: 01:23 BP 158 / 98; Pulse 109; Resp 18; Temp 98.8; Pulse Ox 99% on R/A; Weight 53.52 kg; pf1 Height 5 ft. 3 in. (160.02 cm); Pain 8/10; 02:10 BP 128 / 93; Pulse 92; Resp 16; Pulse Ox 97% on R/A; kd3 01:23 Body Mass Index 20.90 (53.52 kg, 160.02 cm) pf1 ED Course: 01:06 Patient arrived in ED. [email or web address] 01:16 Jordan Silva MD is Attending Physician. rn 01:25 Triage completed. pf1 01:30 Strep Sent. jb4 01:30 COVID-19/FLU A+B Sent. jb4 01:30 Arm band placed on right wrist. jb4 01:54 XRAY Chest (1 view) In Process Unspecified. EDTX 02:06 Alvina Sweet, RN is Primary Nurse. kd3 02:41 No provider procedures requiring assistance completed. Patient did not have IV access jb4 during this emergency room visit. Administered Medications: 01:27 Drug: Tussionex Pennkinetic ER (chlorpheniramine-hydrocodone) Suspension 5 ml Route: PO;jb4 02:41 Follow up: Response: No adverse reaction; Marked relief of symptoms jb4 02:41 Drug: LevaQUIN (levofloxacin) 500 mg Route: PO; jb4 02:41 Follow up: Response: Medication administered at discharge. jb4 Outcome: 02:37 Discharge ordered by . rn 02:41 Discharged to home ambulatory. jb4 02:41 Condition: stable 02:41 Discharge instructions given to patient, Instructed on discharge instructions, follow up and referral plans. medication usage, Demonstrated understanding of instructions, follow-up care, medications, Prescriptions given X 2. 02:42 Patient left the ED. jb4 Signatures: Dispatcher [employer] EDTX Jordan Silva MD MD rn Bryson, James, RN RN jb4 JomarShell jj6 Alvina Sweet, RN RN kd3 Silvana mitchell RN RN pf1
--- NOTE | 2022-05-25 02:38 | EDPHYS ---
Physician Documentation [facility] Name: Tiana Mcrae Age: 57 yrs Sex: Female : 1965 Arrival Date: 05/25/2022 Time: 01:06 Bed 4 Private MD: ED Physician Jordan Silva HPI: 05/25 01:51 This 57 yrs old Black Female presents to ER via Ambulatory with complaints of cough, rn congestion, sinus pressure. 01:51 The patient or guardian reports cough, described as moderate, with productive sputum. rn Onset: The symptoms/episode began/occurred 2 day(s) ago. Severity of symptoms: At their worst the symptoms were moderate, in the emergency department the symptoms are unchanged. Modifying factors: The symptoms are alleviated by nothing, the symptoms are aggravated by nothing. Associated signs and symptoms: Pertinent positives: rhinorrhea, sore throat, Pertinent negatives: chest pain, fever. The patient has experienced similar episodes in the past. The patient has not recently seen a physician. 01:51 Pt reports cough, congestion, headache, myalgias. + chronic back pain that is made rn worse with this cough. . Historical: - Allergies: 01:25 No Known Allergies; pf1 - PMHx: 01:25 sinus infection; Migraine; Chronic back pain; pf1 - PSHx: 01:25 hysterectomy; pf1 - Immunization history:: Adult Immunizations not up to date, Client reports having NOT received the Covid vaccine. Last tetanus immunization: > 10 years ago Flu vaccine is not up to date. It has been more than one year since last vaccine. - Social history:: Smoking status: Patient reports the use of cigarette tobacco products, Patient uses alcohol, but reports only rare drinking. Patient/guardian denies using street drugs. - Family history:: not pertinent. - Hospitalizations: : No recent hospitalization is reported. ROS: 01:51 Constitutional: Negative for fever, chills, and weight loss, Eyes: Negative for injury, rn pain, redness, and discharge, ENT: + sinus pressure Neck: Negative for injury, pain, and swelling, Cardiovascular: Negative for chest pain, palpitations, and edema, Respiratory: + cough Abdomen/GI: Negative for abdominal pain, nausea, vomiting, diarrhea, and constipation, Back: + back pain with cough MS/Extremity: Negative for injury and deformity, Skin: Negative for injury, rash, and discoloration, Neuro: + headache and generalized weakness Exam: 01:51 Constitutional: Thin female, tearful Head/Face: Normocephalic, atraumatic. ENT: + rn clear nasal drainage, no stridor Cardiovascular: Tachycardic, regular. No pulse deficits. Respiratory: No increased work of breathing, no retractions or nasal flaring. Abdomen/GI: Soft, non-tender Skin: Warm, dry MS/ Extremity: Pulses equal, no cyanosis. Neuro: Awake and alert, GCS 15 Vital Signs: 01:23 BP 158 / 98; Pulse 109; Resp 18; Temp 98.8; Pulse Ox 99% on R/A; Weight 53.52 kg; pf1 Height 5 ft. 3 in. (160.02 cm); Pain 8/10; 02:10 BP 128 / 93; Pulse 92; Resp 16; Pulse Ox 97% on R/A; kd3 01:23 Body Mass Index 20.90 (53.52 kg, 160.02 cm) pf1 MDM: 01:16 Patient medically screened. rn 02:13 Differential Diagnosis: Bronchitis Influenza Upper Respiratory Infection Sinusitis rn Pharyngitis Viral Syndrome Pneumonia. Data reviewed: vital signs, nurses notes, lab test result(s), radiologic studies, plain films, and as a result, I will discharge patient. Independent interpretation of the following test(s) in the Emergency Department X-Ray: My interpretation is CXR shows possible right lower lobe consolidation/pneumonia. Counseling: I had a detailed discussion with the patient and/or guardian regarding: the historical points, exam findings, and any diagnostic results supporting the discharge/admit diagnosis, lab results, radiology results, the need for outpatient follow up, to return to the emergency department if symptoms worsen or persist or if there are any questions or concerns that arise at home. Response to treatment: the patient's symptoms have markedly improved after treatment, and as a result, I will discharge patient. Special discussion: I discussed with the patient/guardian in detail that at this point there is no indication for admission to the hospital. It is understood, however, that if the symptoms persist or worsen the patient needs to return immediately for re-evaluation. ED course: Pt improved with cough medication, CXR shows right lower lobe consolidation, possibly pneumonia, will dc home with abx and cough medication. Advised to stop smoking as well. No oxygen requirement or indication for emergent admission.. 02:37 Counseling: I had a detailed discussion with the patient and/or guardian regarding: rn smoking cessation. 05/25 01:20 Order name: COVID-19/FLU A+B; Complete Time: 02:37 rn 05/25 01:20 Order name: Strep; Complete Time: 02:37 rn 05/25 01:20 Order name: XRAY Chest (1 view) rn 05/25 02:13 Order name: Throat Culture EDMS Administered Medications: : Drug: Tussionex Pennkinetic ER (chlorpheniramine-hydrocodone) Suspension 5 ml Route: PO;jb4 02:41 Follow up: Response: No adverse reaction; Marked relief of symptoms jb4 02:41 Drug: LevaQUIN (levofloxacin) 500 mg Route: PO; jb4 02:41 Follow up: Response: Medication administered at discharge. jb4 Disposition Summary: 05/25/22 02:37 Discharge Ordered Location: Home rn Problem: new rn Symptoms: have improved rn Condition: Stable rn Diagnosis - Pneumonia, unspecified organism rn Followup: rn - With: Private Physician - When: As needed - Reason: Recheck today's complaints, Re-evaluation by your physician Discharge Instructions: - Discharge Summary Sheet rn - Community-Acquired Pneumonia, Adult rn Forms: - Medication Reconciliation Form rn - Thank You Letter rn - Antibiotic tile burner - Prescription Opioid Use rn Prescriptions: - Guaifenesin AC 10-100 mg/5 mL Oral Liquid - take 10 milliliters by ORAL route every 4 hours As needed; 240 milliliter; rn Refills: 0, Product Selection Permitted - levofloxacin 500 mg Oral Tablet - take 1 tablet by ORAL route once daily for 7 days; 7 tablet; Refills: 0, rn Product Selection Permitted Signatures: Dispatcher [employer] EDMS Jordan Silva MD MD rn Bryson, James RN RN jb4 Silvana mitchell RN RN pf1
[2022-05-25 04:14] VITALS: TEMP 98.8
[2022-05-25 04:15] VITALS: BP 128/93; O2SAT 97
--- NOTE | 2022-05-25 15:02 | RAD REPORT ---
EXAM DESCRIPTION: RAD - Chest Single View - 05/25/2022 1:52 am CLINICAL HISTORY: The patient is 57 years old and is Female; COUGH TECHNIQUE: Frontal view of the chest. COMPARISON: No relevant prior studies available. FINDINGS: Lungs: Patchy opacity in the right lung base. Pleural space: Blunting of the right costophrenic angle which may indicate a right pleural effus ion. No pneumothorax. Heart: Unremarkable. Mediastinum: Unremarkable. Bones/joints: Unremarkable. IMPRESSION: 1. Patchy opacity in the right lung base. 2. Blunting of the right costophrenic angle which may indicate a right pleural effusion. Electronically signed by: Segun Burton MD 05/25/2022 2:00 AM MACHINE PACKAGE SEALER Due to temporary technical issues with the PACS/Fluency reporting system, reports are being signed by the in house radiologists without review as a courtesy to insure prompt reporting. The interpreting radiologist is fully responsible for the content of the report.
== END 2022-05-25 02:42 | disposition home or self-care (01) ==
LOC: ER 01:04
DX: J18.9 Pneumonia, unspecified organism (principal); F17.210 Nicotine dependence, cigarettes, uncomplicated; Z20.822 Contact with and (suspected) exposure to COVID-19
CPT/HCPCS: 0240U; 71045; 87070; 87081

== ENCOUNTER 2022-12-24 06:48 | Emergency (ER) | payer SELFPAY ==
--- OUTSIDE RECORDS SUMMARY | 2022-12-24 06:51 | XMS REPORT | Continuity of Care Document ---
:1965 Author Organization [facility] t Address 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 [id number] 2022 COMM 00:00:00 Problems Condition Condition Condition Status Onset Resolution Last Treating Co mments Source Name Details Category Date Date Treatment Clinician Date No known No known Disease Unive rs active active ity of problems problems [facility] Allergies, Adverse Reactions, Alerts Allergy Allergy Status Severity Reaction(s) Onset Inactive Treating Comm ents Source Name Type Date Date Clinician NO KNOWN Drug Active Univers ALLERGIE Class ity of S [facility] Social History Social Habit Start Date Stop Date Quantity Comments Source History of tobacco 2002-09-30 Cigarette Smoker Salome Fleming - use 00:00:00 External Gender identity Salome hilliard - External Sexual orientation Salome Fleming - External Cigarettes smoked 2022-10-05 2022-10-05 Salomejerome Fleming - current (pack per 00:00:00 00:00:00 Externa l day) - Reported Cigarette 2022-10-05 2022-10-05 Salome Fleming - pack-years 00:00:00 00:00:00 External Tobacco use and 2022-10-05 2022-10-05 Smokeless Salome hilliard - exposure 00:00:00 00:00:00 tobacco non-user External Alcohol intake 2022-10-05 2022-10-05 Ex-drinker Salome mckeon - 00:00:00 00:00:00 (finding) External History of Social 2022-10-05 2022-10-05 Salomejeroem Fleming - function 00:00:00 00:00:00 External Exposure to 2022-04-03 2022-04-13 Not sure University SARS-CoV-2 (event) 00:00:00 16:18:00 [facility] Sex Assigned At [birth year] Salome hilliard - 00:00:00 00:00:00 External Smoking Status Start Date Stop Date Source Tobacco smoking consumption [facility] Smokes tobacco daily 2022-10-05 00:00:00 Salome Fleming - External Medications Ordered Filled Start Stop Current Ordering Indication Dosage Frequency Signature Comments Components Source Medication Medication Date Date Medication? Clinician (SIG) Name Name Etodolac Yes [id number] 400mg Take 1 K elsey 400 MG oral 6-07 tablet Seybol d Tablet 00:00: (400 mg - 00 total) by Externa mouth 2 l times daily Take with food Tizanidine Yes [id number] 4mg Q.25D Take 1 Salome HCl 4 MG 6-07 tablet (4 Seybol d oral Tablet 00:00: mg total) - 00 by mouth Externa every 6 l hours as needed for muscle spasms Gabapentin Yes [id number] 100mg Take 1 Salome 100 MG oral 6-07 capsule Seybo ld Capsule 00:00: (100 mg - 00 total) by Externa mouth 3 l times daily methylPREDN Yes [id number] 1{rianna} Take 1 rianna Salome ISolone 4 5-09 by mouth Seybol d MG oral 00:00: See Admin - Tablet 00 Instructio Externa Therapy ns Use as l Pack directed Amoxicillin Yes [id number] 1{tbl} Take 1 Salome -Pot 5-09 tablet by Seybold Clavulanate 00:00: mouth 2 - 875-125 MG 00 times Externa oral Tablet daily l Albuterol Yes [id number] 2{puff} Q.25D Inhale 2 Salome HFA 108 (90 5-09 puffs into Se ybold Base) 00:00: the lungs - MCG/ACT IN 00 every 6 Biomass Technician a AERS hours as l needed for wheezing FENTanyl PF 2021-05- No 50ug 50 mcg, Un noel (SUBLIMAZE 06-14 Intramuscu it y of (PF)) 22:45: 22:59 lar, ONCE, [place] injection 00 :00 1 dose, On Medi gracie 50 mcg Wed Branch 04/13/22 at 1645, STAT acetaminoph 2020-05- No 650mg 650 mg, U nivers en 05-19 Oral, ity of (TYLENOL) 18:45: 17:55 ONCE, 1 [place] tablet 650 00 :00 dose, On Medic al mg Fri Branch 03/19/21 at 1245, RONAN ketorolac 2020-05- No 30mg 30 mg, Unive rs (TORADOL) [...] Branch 03/19/21 at 1245, RONAN NaCl 0.9% 2020-05- No 1000mL at 999 Uni vers (NS) bolus 1-19 11-19 mL/hr, ity of infusion 18:45: 19:55 1,000 mL, [place] as 1,000 mL 00 :00 IV Medical Infusion, Branch ONCE, 1 dose, On Mon03/19/21 at 1245, RONAN albuterol 2020-05 Yes [id number] 2{puff} Inhale 2 Univers 90 1-19 Puffs ity of mcg/actuati 00:00: every 4 [place] as on inhaler 00 (four) Medical hours as Branch needed for Wheezing or Shortness of Breath. ondansetron 2020-05 Yes [id number] 4mg Take 1 Univers (ZOFRAN 1-19 tablet by ity of ODT) 4 mg 00:00: mouth [place] disintegrat 00 every 8 Medic al ing tablet (eight) Branch hours as needed for Nausea and Vomiting (N/V). benzonatate 2020-05 Yes [id number] 100mg Take 1 Univers 100 mg 1-19 capsule by ity of capsule 00:00: mouth 3 [place] 00 (three) Medical times Branch daily as needed for Cough. bromphenira 2020-05 Yes [id number] 5mL Take 5 mL Univers mine-pseudo 1-19 by mouth 4 it y of ephedrine-D 00:00: (four) [place] M (BROMFED 00 times Medical DM) 2-30-10 daily as Bran ch mg/5 mL needed for syrup Cold symptoms. albuterol 2020-05 Yes [id number] 2{puff} Inhale 2 Univers 90 1-19 Puffs ity of mcg/actuati 00:00: every 4 [place] as on inhaler 00 (four) Medical hours as Branch needed for Wheezing or Shortness of Breath. ondansetron 2020-05 Yes [id number] 4mg Take 1 Univers (ZOFRAN 1-19 tablet by ity of ODT) 4 mg 00:00: mouth [place] disintegrat 00 every 8 Medic al ing tablet (eight) Branch hours as needed for Nausea and Vomiting (N/V). benzonatate 2020-05 Yes [id number] 100mg Take 1 Univers 100 mg 1-19 capsule by ity of capsule 00:00: mouth 3 [place] 00 (three) Medical times Branch daily as needed for Cough. bromphenira 2020-05 Yes [id number] 5mL Take 5 mL Univers mine-pseudo 1-19 by mouth 4 it y of ephedrine-D 00:00: (four) [place] (BROMFED 00 times Medical DM) 2-30-10 daily as Bran ch mg/5 mL needed for syrup Cold symptoms. Vital Signs Vital Name Observation Time Observation Value Comments Source Systolic blood 2022-10-05 18:28:00 122 mm[Hg] Salome Monsivaisybold - pressure External Diastolic blood 2022-10-05 18:28:00 80 mm[Hg] Kelse stone Seybold - pressure External Heart rate 2022-10-05 18:28:00 86 /min Salome S onelbold - External Body temperature 2022-10-05 18:28:00 36.83 Denise Rema sykes Seybshannen - External Respiratory rate 2022-10-05 18:28:00 16 /min Rema Fleming - External Body weight 2022-10-05 18:28:00 53.252 kg Salome sykesbodarcy - External Oxygen saturation in 2022-10-05 18:28:00 98 /min room air Salome Fleming - Arterial blood by External Pulse oximetry Systolic blood 2022-04-13 22:18:00 143 mm[Hg] [facility]iver [facility] of [facility] Diastolic blood 2022-04-13 22:18:00 95 mm[Hg] Unive rsity of [facility] Heart rate 2022-04-13 22:18:00 72 /min [facility] Body temperature 2022-04-13 22:18:00 36.5 [facility] 2022-04-13 22:18:00 20 /min [facility] Body height 2022-04-13 22:18:00 160 cm [facility] Body weight 2022-04-13 22:18:00 54.432 kg [facility] BMI 2022-04-13 22:18:00 21.26 kg/m2 [facility] Oxygen saturation in 2022-04-13 22:18:00 99 /min University of Arterial blood by [facility] Pulse oximetry Branch Systolic blood 2021-03-19 20:00:00 102 mm[Hg] Univer sity [facility] Diastolic blood 2021-03-19 20:00:00 73 mm[Hg] Unive rsity of pressure [facility] Heart rate 2021-03-19 20:00:00 81 /min [facility] Respiratory rate 2021-03-19 20:00:00 14 /min [facility] Oxygen saturation in 2021-03-19 20:00:00 97 /min [facility] Arterial blood by [facility] Pulse oximetry Branch Body temperature 2021-03-19 17:34:00 39.11 Denise [facility] Body weight 2021-03-19 17:34:00 53.524 kg [facility] Procedures Procedure Date / Time Performed Performing Clinician Sour e LUMBAR SPINE 2 VIEWS 2022-10-05 19:37:50 Mitchell Hightowerold - External THORACIC SPINE 3 2022-10-05 19:37:06 Mitchell Hightower old - VIEWS External CONSENT/REFUSAL FOR 2022-04-13 22:10:03 Doctor Unassigned, No Un iversity [facility] DIAGNOSIS AND Name [facility] TREATMENT XR CHEST 1 VW 2021-03-19 18:10:58 Krysta Louis [facility] COMP. METABOLIC PANEL 2021-03-19 17:53:00 Krysta Louis [facility] ([id number]) [facility] CBC WITH DIFF 2021-03-19 17:53:00 Krysta Louis [facility] CONSENT/REFUSAL FOR 2021-03-19 17:29:16 Doctor Unassigned, No Un iversity [facility] DIAGNOSIS AND Name [facility] TREATMENT NOTICE OF PRIVACY 2021-03-19 17:27:40 Doctor Unassigned, No [facility] [place] Encounters Start End Encounter Admission Attending Care Care Encounter Source Date/Time Date/Time Type Type Clinicians Facility Department ID 2022-12-21 2022-12-21 Outpatient CHAMP HERNANDEZ [id number] Salome 14:00:00 14:00:00 Seybol d 2022-10-05 2022-10-05 Outpatient SALOME BROWN [id number] Salome 14:35:00 14:35:00 Seybol d 2022-10-05 2022-10-05 Outpatient SALOME BROWN [id number] Salome 14:30:00 14:30:00 Seybol d 2022-10-05 2022-10-05 Outpatient KATJA SALOME BROWN [id number] Salome 14:00:00 14:00:00 MONDAY Seybol d 2022-09-23 2022-09-23 Outpatient KATJA SALOME BROWN [id number] Salome 08:00:00 08:00:00 MONDAY Seybol d 2022-09-20 2022-09-20 Outpatient VIPIN SALOME BROWN [id number] Salome 00:00:00 00:00:00 AHMED Seybol d 2022-09-06 2022-09-06 Outpatient KATJA SALOME BROWN [id number] Salome 15:30:00 15:30:00 MONDAY Seybol d 2022-04-13 2022-04-13 [id number] Univers 16:20[facility]00 [facility]17[facility] 2022-04-13 2022-04-13 [facility] [id number] Univers 16:20:00 17:17:00 Saurav MOORE [id number] i ty of [place] [id number] [facility] [id number] [address] 2021-03-19 2021-03-19 [facility] [id number] Univers 11:37:00 14:26:00 Krysta MOORE [id number] ity [facility] [id number] [facility] [id number] [address] 2021-03-19 2021-03-19 Emergency [facility] [id number] Univers 11:37:00 14:26:00 KRYSTA [facility] Results Test Description Test Time [...] system which ge nerated this result transmit nuique reference range: 3.93 - 5 .25 10*6/?L. [...] RDW-SD (test code = 42.0 fL 39.0-49.9 18261-6) RDW-CV (test code = 788-0) 13.0 % 12.0-15.5 PLT (test code = 777-3) See_Comment [Au tomated message] The system which ge nerated this result transmit unique reference range: 166 - 35 8 10*3/?L. The reference r talya was not used to interpr et this result as michael l/abnormal. MPV (test code = 12348-2) 9.4 fL 9.5-12.9 L NRBC/100 WBC (test code = See_Comment [ Automated message] The 4275000661) system which ge nerated this result transmit unique reference range: 0.0 - 10 .0 /100 WBCs. The reference r talya was not used to interpr et this result as michael l/abnormal. NRBC x10^3 (test code = <0.01 See_Comment [Au tomated message] The 8270950027) system which ge nerated this result transmit unique reference range: 10*3/?L. The reference range was not used to interpret th is result as normal/abnormal . GRAN MAT (NEUT) % (test 83.6 % code = 770-8) IMM GRAN % (test code = 1.80 % 4864256971) LYMPH % (test code = 9.5 % 736-9) MONO % (test code = 4.7 % 5905-5) EOS % (test code = 713-8) 0.0 % BASO % (test code = 706-2) 0.4 % GRAN MAT x10^3(ANC) (test 14.49 10*3/uL 1.88-7.09 H code = 7642790170) IMM GRAN x10^3 (test code 0.31 10*3/uL 0.00-0.06 H = 2684454033) LYMPH x10^3 (test code = 1.64 10*3/uL 1.32-3.29 731-0) MONO x10^3 (test code = 0.81 10*3/uL 0.33-0.92 742-7) EOS x10^3 (test code = <0.03 0.03-0.39 L 711-2) BASO x10^3 (test code = 0.07 10*3/uL 0.01-0.07 704-7) BANDS (test code = MARKED INCREASED A 1524595631) DOHLE BODIES (test code = Present A 7792-5) Lab Interpretation (test Abnormal code = 92139-8) [facility]. METABOLIC PANEL (98160)2021-03-19 18:30:14 Test Item Value Reference Range Interpretation Comments NA (test code = 129 mmol/L 135-145 L 9672973203) K (test code = 3.3 mmol/L 3.5-5.0 L 5293625955) CL (test code = 97 mmol/L 98-108 L 6608669667) CO2 TOTAL (test code = 23 mmol/L 23-31 2272973283) AGAP (test code = 2-16 0473841965) BUN (test code = 8 mg/dL 7-23 7972791508) GLUCOSE (test code = 124 mg/dL 70-110 H 2907031142) CREATININE (test code = 0.71 mg/dL 0.50-1.04 7513241128) TOTAL BILI (test code = 0.7 mg/dL 0.1-1.3 9699038156) CALCIUM (test code = 8.4 mg/dL 8.6-10.6 L 6031010879) T PROTEIN (test code = 9.2 g/dL 6.3-8.2 H 0222688294) ALBUMIN (test code = 3.7 g/dL 3.5-5.0 4441632667) ALK PHOS (test code = 81 U/L 34-122 5300108936) ALTv (test code = 19 U/L 5-35 1742-6) AST(SGOT) (test code = 40 U/L 13-40 9922884722) eGFR (test code = mL/min/1.73m2 6578765845) KEYONNA (test code = KEYONNA) Association of [...] tests). Lab Interpretation Abnormal (test code = 06651-3) [facility]"
[2022-12-24] MEDS ORDERED: CEFTRIAXONE 1000 MG/VIAL ONE (07:50)
[2022-12-24] MEDS ORDERED: AZITHROMYCIN 250 MG TAB ONE (07:50)
[2022-12-24] MEDS ORDERED: KETOROLAC 30 MG/ML INJ ONE (07:50)
[2022-12-24 08:02] LABS: Lymphocytes % 27.7 % (15.3-44.8); MCV 87.6 fL (80-100); MPV 7.2 fL (7.6-11.3); Platelets 146 thou/uL (152-406); RBC Red Blood Cell Count 3.66 M/uL (3.86-4.86)
[2022-12-24 08:03] LABS: Specific Gravity 1.013 (1.005-1.030)
[2022-12-24 08:05] LABS: Specific Gravity 1.013 (1.005-1.030); Urine Bacteria >50 /HPF (<20); Urine Bilirubin NEGATIVE (Negative); Urine Blood Negative (Negative); Urine Clarity Extremely Turbid (Clear); Urine Color Light-Yellow (Yellow); Urine Glucose NEGATIVE (Negative); Urine Mucus Slight /HPF (None Seen); Urine Protein TRACE (Negative); Urine RBC <5 /HPF (None Seen); Urine Urobilinogen Normal (Normal); Urine pH 6.5 (5.0-7.0)
[2022-12-24 08:20] LABS: Albumin 2.8 g/dL (3.4-5.0); Bilirubin Total 0.4 mg/dL (0.2-1.0); Potassium 3.3 mEq/L (3.5-5.1); Protein, Total 9.6 g/dL (6.4-8.2)
--- NOTE | 2022-12-24 08:22 | RAD REPORT ---
EXAM DESCRIPTION: RAD - Chest Pa And Lat (2 Views) - 12/24/2022 8:14 am CLINICAL HISTORY: COUGH COMPARISON: Chest Single View dated 05/25/2022; Chest Single View dated 03/18/2021; Chest Single View dated 03/09/2021; Facial Bones W Con Mpr dated 08/20/2022; Thoracic Spine W/o Cont dated 04/11/2022 FINDINGS: Lines: None. Lungs: No evidence of edema or pneumonia. Hyperinflated lungs. Emphysema. Pleural: No significant pleural effusions or pneumothorax. Cardiac: The heart size is within normal limits. Mediastinum: Within normal limits. Bones: No acute fractures. Other: None IMPRESSION: Emphysema without superimposed acute process.
--- NOTE | 2022-12-24 08:38 | ER ---
Nurse's Notes [facility] Name: Tiana Mcrae Age: 57 yrs Sex: Female : 1965 Arrival Date: 12/24/2022 Time: 06:48 Bed 5 Private MD: Diagnosis: Acute upper respiratory infection, unspecified;Cough;Tobacco abuse counseling;Tobacco use;UTI/ Urinary tract infection, site not specified Presentation: 12/24 07:08 Chief complaint: Patient states: Weakness, body aches, sore throat X 2 days. "I felt ld1 like this last time I had covid.". Coronavirus screen: Client presents with at least one sign or symptom that may indicate coronavirus-19. Standard/surgical mask placed on the client. Ebola Screen: No symptoms or risks identified at this time. Initial Sepsis Screen: Does the patient meet any 2 criteria? No. Patient's initial sepsis screen is negative. Does the patient have a suspected source of infection? No. Patient's initial sepsis screen is negative. Risk Assessment: Do you want to hurt yourself or someone else? Patient reports no desire to harm self or others. Onset of symptoms was December 24, 2022. 07:08 Method Of Arrival: Ambulatory ld1 07:08 Acuity: SD 3 ld1 Triage Assessment: 07:09 General: Appears in no apparent distress. comfortable, Behavior is calm, cooperative, ld1 appropriate for age. Pain: Denies pain. EENT: No signs and/or symptoms were reported regarding the EENT system. Neuro: Level of Consciousness is awake, alert, obeys commands, Oriented to person, place, time, situation. Cardiovascular: Capillary refill < 3 seconds Patient's skin is warm and dry. Respiratory: Airway is patent Respiratory effort is even, unlabored. GI: Abdomen is flat, non-distended. : No signs and/or symptoms were reported regarding the genitourinary system. Derm: No signs and/or symptoms reported regarding the dermatologic system. Musculoskeletal: No signs and/or symptoms reported regarding the musculoskeletal system. Historical: - Allergies: 07:09 No Known Allergies; ld1 - PMHx: 07:05 chronic back pain; Migraine; sinus infection; ld1 - PSHx: 07:05 hysterectomy; ld1 - Immunization history:: Adult Immunizations up to date. - Social history:: Smoking status: Patient denies any tobacco usage or history of. Patient/guardian denies using alcohol. Screenin:10 [facility] ED Fall Risk Assessment (Adult) History of falling in the last 3 months, ld1 including since admission No falls in past 3 months (0 pts). [facility] ED Fall Risk Assessment (Adult) History of falling in the last 3 months, including since admission. Abuse screen: Denies threats or abuse. Denies injuries from another. Nutritional screening: No deficits noted. Tuberculosis screening: No symptoms or risk factors identified. Assessment: 07:10 Reassessment: See triage assessment. ld1 08:00 Reassessment: Patient appears in no apparent distress at this time. Patient and/or hb family updated on plan of care and expected duration. Pain level reassessed. Patient is alert, oriented x 3, equal unlabored respirations, skin warm/dry/pink. 09:00 Reassessment: Patient appears in no apparent distress at this time. Patient and/or hb family updated on plan of care and expected duration. Pain level reassessed. Patient is alert, oriented x 3, equal unlabored respirations, skin warm/dry/pink. Vital Signs: 07:08 BP 119 / 81; Pulse 84; Resp 18; Temp 98.9(O); Pulse Ox 95% on R/A; Weight 53.52 kg; ld1 Height 5 ft. 3 in. ; Pain 0/10; 07:48 BP 112 / 83; Pulse 72; Resp 18; Pulse Ox 98% on R/A; ld1 09:00 BP 124 / 78; Pulse 70; Resp 16; Pulse Ox 99% on R/A; hb 07:08 Body Mass Index 20.90 (53.52 kg, 160.02 cm) ld1 07:08 Pain Scale: Adult ld1 ED Course: 06:53 Patient arrived in ED. [email or web address] 07:06 Marcos Navarro MD is Attending Physician. david 07:08 Janice Matos, RN is Primary Nurse. ld1 07:08 Patient has correct armband on for positive identification. Bed in low position. Call mm9 light in reach. Side rails up X 1. Warm blanket given. Pulse ox on. NIBP on. 07:09 Triage completed. ld1 07:09 Arm band placed on right wrist. ld1 07:10 No provider procedures requiring assistance completed. ld1 07:30 Inserted saline lock: 20 gauge in right antecubital area, using aseptic technique. hb Blood collected. 07:45 Comprehensive Metabolic Panel Sent. hb 07:45 CBC with Diff Sent. hb 07:46 Urinalysis w/ reflexes Sent. ld1 07:46 PREGU Sent. ld1 08:16 Chest Pa And Lat (2 Views) XRAY In Process Unspecified. EDMS 09:09 IV discontinued, intact, bleeding controlled, No redness/swelling at site. hb Administered Medications: 07:45 Drug: Rocephin IV 1 grams Route: IV; Rate: per protocol; Site: right antecubital; hb 07:45 Drug: AZITHromycin PO 500 mg Route: PO; hb 09:07 Follow up: Response: No adverse reaction hb 07:45 Drug: Ketorolac IVP 15 mg Route: IVP; Site: right antecubital; hb 09:07 Follow up: Response: No adverse reaction hb 09:07 Drug: Potassium PO Effervescent Tablet 25 mEq Route: PO; hb 09:07 Follow up: Response: Medication administered at discharge. hb 09:07 Drug: LevOfloxacin PO 500 mg Route: PO; hb 09:07 Follow up: Response: Medication administered at discharge. hb Medication: 07:10 VIS not applicable for this client. ld1 Outcome: 08:37 Discharge ordered by . [facility] 09:08 Discharged to home ambulatory. hb 09:08 Condition: stable 09:08 Discharge instructions given to patient, Instructed on discharge instructions, follow up and referral plans. medication usage, Demonstrated understanding of instructions, follow-up care, medications, Prescriptions given X 4. 09:09 Patient left the ED. hb Signatures: Dispatcher [employer] EDMS Marcos Navarro MD MD cha Baxter, Heather, RN RN Janice Matos, AMAN RN ld1 Shell [place]6 Marielle Langley mm9 Corrections: (The following items were deleted from the chart) 07:47 07:45 Group A Streptococcus Rapid Sc+BA.LAB.BRZ drawn and sent. hb EDMS 07:47 07:45 Influenza Screen (A \\T\\ B)+BA.LAB.BRZ drawn and sent. hb EDMS
--- NOTE | 2022-12-24 08:38 | EDPHYS ---
Physician Documentation [facility] Name: Tiana Mcrae Age: 57 yrs Sex: Female : 1965 Arrival Date: 12/24/2022 Time: 06:48 Bed 5 Private MD: ED Physician Marcos Navarro HPI: 12/24 07:35 This 57 yrs old Black Female presents to ER via Ambulatory with complaints of General david Weakness. 07:35 The patient or guardian reports airway noise, cough, that is intermittent, flu david symptoms. Onset: The symptoms/episode began/occurred 2 day(s) ago. Modifying factors: The symptoms are alleviated by nothing. the symptoms are aggravated by nothing. Associated signs and symptoms: The patient has no apparent associated signs or symptoms. The patient reports fever, not measured (subjective). Modifying factors: there are no obvious modifying factors. Severity of symptoms: At their worst the symptoms were mild moderate in the emergency department the symptoms are unchanged. Associated signs and symptoms: Pertinent positives: chills, cough, decreased appetite. The patient has experienced similar episodes in the past, a few times. Historical: - Allergies: 07:09 No Known Allergies; ld1 - PMHx: 07:05 chronic back pain; Migraine; sinus infection; ld1 - PSHx: 07:05 hysterectomy; ld1 - Immunization history:: Adult Immunizations up to date. - Social history:: Smoking status: Patient denies any tobacco usage or history of. Patient/guardian denies using alcohol. ROS: 07:36 Constitutional: Negative for fever, chills, and weight loss, Eyes: Negative for injury, david pain, redness, and discharge, ENT: Negative for injury, pain, and discharge, Neck: Negative for injury, pain, and swelling, Cardiovascular: Negative for chest pain, palpitations, and edema, Abdomen/GI: Negative for abdominal pain, nausea, vomiting, diarrhea, and constipation, Back: Negative for injury and pain, : Negative for injury, bleeding, discharge, and swelling, MS/Extremity: Negative for injury and deformity, Skin: Negative for injury, rash, and discoloration, Neuro: Negative for headache, weakness, numbness, tingling, and seizure, Psych: Negative for depression, anxiety, suicide ideation, homicidal ideation, and hallucinations, Allergy/Immunology: Negative for hives, rash, and allergies, Endocrine: Negative for neck swelling, polydipsia, polyuria, polyphagia, and marked weight changes, Hematologic/Lymphatic: Negative for swollen nodes, abnormal bleeding, and unusual bruising. 07:36 Respiratory: Positive for cough, "sounds productive". Exam: 07:36 Constitutional: This is a well developed, well nourished patient who is awake, alert, david and in no acute distress. Head/Face: Normocephalic, atraumatic. Eyes: Pupils equal round and reactive to light, extra-ocular motions intact. Lids and lashes normal. Conjunctiva and sclera are non-icteric and not injected. Cornea within normal limits. Periorbital areas with no swelling, redness, or edema. ENT: Nares patent. No nasal discharge, no septal abnormalities noted. Tympanic membranes are normal and external auditory canals are clear. Oropharynx with no redness, swelling, or masses, exudates, or evidence of obstruction, uvula midline. Mucous membranes moist. Neck: Trachea midline, no thyromegaly or masses palpated, and no cervical lymphadenopathy. Supple, full range of motion without nuchal rigidity, or vertebral point tenderness. No Meningismus. Chest/axilla: Normal chest wall appearance and motion. Nontender with no deformity. No lesions are appreciated. Cardiovascular: Regular rate and rhythm with a normal S1 and S2. No gallops, murmurs, or rubs. Normal PMI, no JVD. No pulse deficits. Abdomen/GI: Soft, non-tender, with normal bowel sounds. No distension or tympany. No guarding or rebound. No evidence of tenderness throughout. Back: No spinal tenderness. No costovertebral tenderness. Full range of motion. Skin: Warm, dry with normal turgor. Normal color with no rashes, no lesions, and no evidence of cellulitis. MS/ Extremity: Pulses equal, no cyanosis. Neurovascular intact. Full, normal range of motion. Neuro: Awake and alert, GCS 15, oriented to person, place, time, and situation. Cranial nerves II-XII grossly intact. Motor strength 5/5 in all extremities. Sensory grossly intact. Cerebellar exam normal. Normal gait. Psych: Awake, alert, with orientation to person, place and time. Behavior, mood, and affect are within normal limits. 07:36 Respiratory: the patient does not display signs of respiratory distress, Respirations: normal, Breath sounds: bronchial sounds, that are mild, decreased breath sounds, are not appreciated, rhonchi, that are mild, are scattered, stridor, is not appreciated, + upper airway congestion. wheezing: inspiratory Vital Signs: 07:08 BP 119 / 81; Pulse 84; Resp 18; Temp 98.9(O); Pulse Ox 95% on R/A; Weight 53.52 kg; ld1 Height 5 ft. 3 in. ; Pain 0/10; 07:48 BP 112 / 83; Pulse 72; Resp 18; Pulse Ox 98% on R/A; ld1 09:00 BP 124 / 78; Pulse 70; Resp 16; Pulse Ox 99% on R/A; hb 07:08 Body Mass Index 20.90 (53.52 kg, 160.02 cm) ld1 07:08 Pain Scale: Adult ld1 MDM: 07:06 Patient medically screened. [facility] 07:37 Differential diagnosis: obstructed airway, bronchitis, flu, URI, viral Infection, david bacterial infection, URI, bronchitis, pneumonia UTI. Antibiotic administration: The patient is discharged and will get outpatient antibiotics, Zithromax. Data reviewed: vital signs, nurses notes, lab test result(s), radiologic studies, plain films. Consideration of Admission/Observation Escalation of care including admission/observation considered. I considered the following discharge prescriptions or medication management in the emergency department Medications were administered in the Emergency Department. See MAR. Independent interpretation of the following test(s) in the Emergency Department X-Ray: My interpretation is chest x ray. Test considered but Not performed: EKG: no ekg. Historians other than the Patient: pt only. Care significantly affected by the following chronic conditions: tobacco abuse, cbp. Counseling: I had a detailed discussion with the patient and/or guardian regarding the historical points, exam findings, and any diagnostic results supporting the discharge/admit diagnosis, lab results, radiology results, the need for outpatient follow up, for definitive care, a family practitioner. 12/24 07:34 Order name: CBC with Diff; Complete Time: 08:33 [facility] 12/24 07:34 Order name: Comprehensive Metabolic Panel; Complete Time: 08:33 [facility] 12/24 07:34 Order name: Flu; Complete Time: 08:45 david 12/24 07:34 Order name: Strep [facility] 12/24 07:34 Order name: Urinalysis w/ reflexes; Complete Time: 08:33 [facility] 12/24 07:34 Order name: PREGU; Complete Time: 08:33 [facility] 12/24 07:45 Order name: SARS-COV-2 RT PCR; Complete Time: 08:35 ld1 12/24 08:08 Order name: Urine Culture [facility] 12/24 08:39 Order name: Throat Culture [facility] 12/24 07:34 Order name: Chest Pa And Lat (2 Views) XRAY; Complete Time: 08:33 david Administered Medications: 07:45 Drug: Rocephin IV 1 grams Route: IV; Rate: per protocol; Site: right antecubital; hb 07:45 Drug: AZITHromycin PO 500 mg Route: PO; hb 09:07 Follow up: Response: No adverse reaction hb 07:45 Drug: Ketorolac IVP 15 mg Route: IVP; Site: right antecubital; hb 09:07 Follow up: Response: No adverse reaction hb 09:07 Drug: Potassium PO Effervescent Tablet 25 mEq Route: PO; hb 09:07 Follow up: Response: Medication administered at discharge. hb 09:07 Drug: LevOfloxacin PO 500 mg Route: PO; hb 09:07 Follow up: Response: Medication administered at discharge. hb Disposition Summary: 12/24/22 08:37 Discharge Ordered Location: Home david Problem: new david Symptoms: have improved david Condition: Stable david Diagnosis - Acute upper respiratory infection, unspecified david - Cough david - Tobacco abuse counseling david - Tobacco use david - UTI/ Urinary tract infection, site not specified david Followup: david - With: Private Physician - When: 2 - 3 days - Reason: Recheck today's complaints, Continuance of care, Re-evaluation by your physician Discharge Instructions: - Discharge Summary Sheet david - Steps to Quit Smoking david - Health Risks of Smoking david - Upper Respiratory Infection, Adult david - Urinary Tract Infection, Adult david - Cool Mist Vaporizer david - Urinary Tract Infection, Adult, [id number] david - Upper Respiratory Infection, Adult, [id number] david - Cough, Adult david Forms: - Medication Reconciliation Form david - Thank You Letter david - Antibiotic Education david - Prescription Opioid Use david - Patient Portal Instructions david - Leadership Thank You Letter [facility] Prescriptions: - albuterol sulfate 90 mcg/actuation Inhalation HFA Aerosol Inhaler - inhale 2 inhalation by INHALATION route every 4 to 6 hours as needed for david bronchospasm; administer via ventilator; 1 unit; Refills: 0, Product Selection Permitted - Medrol (Elliot) 4 mg Oral Tablets, Dose Pack - take 1 tablet by ORAL route as directed - follow package instructions; 1 david packet; Refills: 0, Product Selection Permitted - Guaifenesin AC 10-100 mg/5 mL Oral Liquid - take 7.5 milliliter by ORAL route every 6 hours As needed; 160 milliliter; david Refills: 0, Product Selection Permitted - levofloxacin 500 mg Oral Tablet - take 1 tablet by ORAL route once daily for 7 days; 7 tablet; Refills: 0, david Product Selection Permitted Signatures: Dispatcher [employer] EDMS Marcos Navarro MD MD cha Baxter, Heather, AMAN RN Janice Matos RN RN ld1 Corrections: (The following items were deleted from the chart) 07:47 07:35 Influenza Screen (A \\T\\ B)+BA.LAB.BRZ ordered. EDMS EDMS 07:47 07:35 Group A Streptococcus Rapid Sc+BA.LAB.BRZ ordered. EDMS EDMS
[2022-12-24] MEDS ORDERED: levoFLOXacin 250 MG TAB ONE (09:09)
[2022-12-24] MEDS ORDERED: POTASSIUM 25 MEQ EFFERV TAB ONE (09:09)
[2022-12-24 09:26] VITALS: TEMP 98
[2022-12-24 09:28] VITALS: BP 120/87; O2SAT 100
== END 2022-12-24 09:09 | disposition home or self-care (01) ==
LOC: ER 06:48
DX: J06.9 Acute upper respiratory infection, unspecified (principal); N39.0 Urinary tract infection, site not specified; Z72.0 Tobacco use; Z71.6 Tobacco abuse counseling; Z20.822 Contact with and (suspected) exposure to COVID-19
CPT/HCPCS: 36415; 71046; 80053; 81001; 81025; 85025; 87070; 87077; 87081; 87086; 87088; 87186; 87635; 87804; 96374; 96375; 99284; J0696

== ENCOUNTER 2023-03-31 19:00 | Emergency (ER) | payer OTHER ==
--- OUTSIDE RECORDS SUMMARY | 2023-03-31 19:04 | XMS REPORT | Continuity of Care Document ---
:1965 Author Organization [facility] t Address [address] [place] [address] Care Team Providers Name Role Phone PCP, PATIENT DOES NOT HAVE A Primary Care Physician Unavaila CHAMP Anderson Attending Clinician Unavailable CINTHYA HIGHTOWERAY Attending Clinician Unavailable ANNITA LEW Attending Clinician Unavailable SAURAV ASHBY Attending Clinician Unavailable Saurav Esquivel Attending Clinician Krysta Louis DO Attending Clinician KRYSTA LOUIS Attending Clinician Unavailable KRYSTA LOUIS Admitting Clinician Unavailable Payers Payer Name Policy Type Policy Number Effective Date Expiration Date S samson DINHTBRADLEY CVS 9 [id number] 2022 SILVER: O LUMBER MARKER 94 00:00:00 ON [facility] [id number] 2022 COMM 00:00:00 Problems Condition Condition Condition Status Onset Resolution Last Treating Co mments Source Name Details Category Date Date Treatment Clinician Date No known No known Disease Unive rs active active ity of problems problems [facility] Allergies, Adverse Reactions, Alerts Allergy Allergy Status Severity Reaction(s) Onset Inactive Treating Comm ents Source Name Type Date Date Clinician NO KNOWN Drug Active Univers ALLERGIE Class ity of S [facility] Social History Social Habit Start Date Stop [...] (finding) External History of Social 2022-10-05 2022-10-05 Salomejerome Fleming - function 00:00:00 00:00:00 External Exposure to 2022-04-03 2022-04-13 Not sure University SARS-CoV-2 (event) 00:00:00 16:18:00 [facility] Sex Ass[birth year] At [birth year] Salome hilliard - 00:00:00 00:00:00 External Smoking Status Start Date Stop Date Source Tobacco smoking consumption [facility] Smokes tobacco daily 2022-10-05 00:00:00 Salome Fleming - External Medications Ordered Filled Start Stop Current Ordering Indication Dosage Frequency Signature Comments Components Source Medication Medication Date Date Medication? Clinician (SIG) Name Name Etodolac Yes [id number] 400mg Take 1 K elsey 400 MG oral 6-07 tablet Seybol d Tablet 00:00: (400 mg - 00 total) by Externa mouth 2 l times daily Take with food Tizanidine Yes [id number] 4mg Q.25D Take 1 Salome HCl 4 MG 6-07 tablet (4 Seybol d oral Tablet 00:00: mg total) - 00 by mouth Externa every 6 l hours as needed for muscle spasms Gabapentin Yes [id number] 100mg Take 1 Salome 100 MG oral 6-07 capsule Seybo ld Capsule 00:00: (100 mg - 00 total) by Externa mouth 3 l times daily methylPREDN Yes [id number] 1{rianna} Take 1 rianna Salome ISolone 4 5-09 by mouth Seybol d MG oral 00:00: See Admin - Tablet 00 Instructio Externa Therapy ns Use as l Pack directed Amoxicillin Yes [id number] 1{tbl} Take 1 Salome -Pot 5-09 tablet by Seybold Clavulanate 00:00: mouth 2 - 875-125 MG 00 times Externa oral Tablet daily l Albuterol Yes [id number] 2{puff} Q.25D Inhale 2 Salome HFA 108 (90 5-09 puffs [address] [employer]) 00:00: the lungs - MCG/ACT IN 00 every 6 [employer] a AERS hours as l needed for [...] Mon03/19/21 at 1245, RONAN albuterol 2020-05 Yes [id number] 2{puff} Inhale 2 Univers 90 1-19 Puffs ity of mcg/actuati 00:00: every 4 [place] as on inhaler 00 (four) Medical hours as Branch needed for Wheezing or Shortness of Breath. ondansetron 2020-05 Yes [id number] 4mg Take 1 Univers (ZOFRAN 1-19 tablet by ity of ODT) 4 mg 00:00: mouth [place] disintegrat 00 every 8 Medic al ing tablet (eight) Branch hours as needed for Nausea and Vomiting (N/V). benzonatate 2020-05 Yes [id number] 100mg Take 1 Univers 100 mg 1-19 capsule by ity of capsule 00:00: mouth 3 [place] 00 (three) Medical times Branch daily as needed for Cough. bromphenira 2020-05 Yes [id number] 5mL Take 5 mL Univers mine-pseudo 1-19 by mouth 4 it y of ephedrine-D 00:00: (four) [place] (BROMFED 00 times Medical DM) 2-30-10 daily as Bran ch mg/5 mL needed for syrup Cold symptoms. albuterol 2020-05 Yes [id number] 2{puff} Inhale 2 Univers 90 1-19 Puffs ity of mcg/actuati 00:00: every 4 [place] as on inhaler 00 (four) Medical hours as Branch needed for Wheezing or Shortness of Breath. ondansetron 2020-05 Yes [id number] 4mg Take 1 Univers (ZOFRAN 1-19 tablet by ity of ODT) 4 mg 00:00: mouth [place] disintegrat 00 every 8 Medic al ing tablet (eight) Branch hours as needed for Nausea and Vomiting (N/V). benzonatate 2020-05 Yes [id number] 100mg Take 1 Univers 100 mg 1-19 capsule by ity of capsule 00:00: mouth 3 [place] 00 (three) Medical times Branch daily as needed for Cough. bromphenira 2020-05 Yes [id number] 5mL Take 5 mL Univers mine-pseudo 1-19 [...] Respiratory rate 2022-10-05 18:28:00 16 /min Rema sykes Seybold - External Body weight 2022-10-05 18:28:00 53.252 kg Salome sykesbodarcy - External Oxygen saturation in 2022-10-05 18:28:00 98 /min room air Salome Fleming - Arterial blood by External Pulse oximetry Systolic blood 2022-04-13 22:18:00 143 mm[Hg] [facility] Diastolic blood 2022-04-13 22:18:00 95 mm[Hg] Unive [facility] Heart rate 2022-04-13 22:18:00 72 /min [facility] Body temperature 2022-04-13 22:18:00 [facility].5 [facility] 2022-04-13 22:18:00 20 /min [facility] Body height 2022-04-13 22:18:00 160 cm [facility] Body weight 2022-04-13 22:18:00 54.432 kg [facility] BMI 2022-04-13 22:18:00 21.26 kg/m2 [facility] Oxygen saturation in 2022-04-13 22:18:00 99 /min University of Arterial blood by [place] [facility] Pulse oximetry Branch Systolic blood 2021-03-19 20:00:00 102 mm[Hg] Univer sity [facility] Diastolic blood 2021-03-19 20:00:00 73 mm[Hg] Unive rsity of pressure [facility] Heart rate 2021-03-19 20:00:00 81 /min [facility] Respiratory rate 2021-03-19 20:00:00 14 /min [facility] Oxygen saturation in 2021-03-19 20:00:00 97 /min [facility] Arterial blood by [facility] Pulse oximetry Branch Body temperature 2021-03-19 17:34:00 39.11 Denise [facility] Body weight 2021-03-19 17:34:00 53.524 kg [facility] Procedures Procedure Date / Time Performed Performing Clinician Sour e LUMBAR SPINE 2 VIEWS 2022-10-05 19:37:50 Mitchell Hightowerold - External THORACIC SPINE 3 2022-10-05 19:37:06 Mitchell Hightower old - VIEWS External CONSENT/REFUSAL FOR 2022-04-13 22:10:03 [facility]igned, [facility] AND Name [facility] Branch TREATMENT XR CHEST 1 VW 2021-03-19 18:10:58 Krysta Louis [facility] COMP. METABOLIC PANEL 2021-03-19 17:53:00 Krysta Louis [facility] ([id number]) [facility] CBC WITH DIFF 2021-03-19 17:53:00 Krysta Louis [facility] CONSENT/REFUSAL FOR 2021-03-19 17:29:16 Doctor Unassigned, [facility] AND Name [facility] Branch TREATMENT NOTICE OF PRIVACY 2021-03-19 17:27:40 Doctor Unassigned, No [facility] PR[facility] Name Medical Nitro Encounters Start End Encounter Admission Attending Care Care Encounter Source Date/Time Date/Time Type Type Clinicians Facility Department ID 2022-12-21 2022-12-21 Outpatient CHAMP HERNANDEZ [id number] Salome 14:00:00 14:00:00 Seybol d 2022-10-05 2022-10-05 Outpatient SALOME BROWN [id number] Salome 14:35:00 14:35:00 Seybol d 2022-10-05 2022-10-05 Outpatient SALOME BROWN [id number] Salome 14:30:00 14:30:00 Seybol d 2022-10-05 2022-10-05 Outpatient KATJA SALOME BROWN [id number] Salome 14:00:00 14:00:00 MONDAY Seybol d 2022-09-23 2022-09-23 Outpatient KATJA SALOME BROWN [id number] Salome 08:00:00 08:00:00 MONDAY Seybol d 2022-09-20 2022-09-20 Outpatient VIPIN SALOME BROWN [id number] Salome 00:00:00 00:00:00 AHMED Seybol d 2022-09-06 2022-09-06 Outpatient KATJA SALOME BROWN [id number] Salome 15:30:00 15:30:00 MONDAY Seybol d 2022-04-13 2022-04-13 [facility] [id number] Univers 16:20:00 17:17:00 SAURAV [facility] 2022-04-13 2022-04-13 [facility] [id number] Univers 16:20:00 17:17:00 Saurav MOORE [id number] i ty of [place] [id number] [facility] [id number] [address] 2021-03-19 2021-03-19 [facility] [id number] Univers 11:37:00 14:26:00 Krysta MOORE [id number] ity [facility] [id number] [facility] [id number] [address] 2021-03-19 2021-03-19 Emergency [facility] [id number] Univers 11:37:00 14:26:00 KRYSTA [facility] Results Test Description Test Time Test [...] RDW-SD (test code = 42.0 fL 39.0-49.9 46863-6) RDW-CV (test code = 788-0) 13.0 % 12.0-15.5 PLT (test code = 777-3) See_Comment [Au tomated message] The system which [employer] nerated this result transmit unique reference range: 166 - 35 8 10*3/?L. The reference r talya was not used to interpr et this result as michael l/abnormal. MPV (test code = 56355-4) 9.4 fL 9.5-12.9 L NRBC/100 WBC (test code = See_Comment [ Automated message] The [id number]) system which ge nerated this result transmit unique reference range: 0.0 - 10 .0 /100 WBCs. The reference r talya was not used to interpr et this result as michael l/abnormal. NRBC x10^3 (test code = <0.01 See_Comment [Au tomated message] The [id number]) system which [employer] nerated this result transmit unique reference range: 10*3/?L. The reference range was not used to interpret th is result as normal/abnormal . GRAN MAT (NEUT) % (test 83.6 % code = 770-8) IMM GRAN % (test code = 1.80 % 4158356615) LYMPH % (test code = 9.5 % 736-9) MONO % (test code = 4.7 % 5905-5) EOS % (test code = 713-8) 0.0 % BASO % (test code = 706-2) 0.4 % GRAN MAT x10^3(ANC) (test 14.49 10*3/uL 1.88-7.09 H code = 8137076235) IMM GRAN x10^3 (test code 0.31 10*3/uL 0.00-0.06 H = 2354940877) LYMPH x10^3 (test code = 1.64 10*3/uL 1.32-3.29 731-0) MONO x10^3 (test code = 0.81 10*3/uL 0.33-0.92 742-7) EOS x10^3 (test code = <0.03 0.03-0.39 L 711-2) BASO x10^3 (test code = 0.07 10*3/uL 0.01-0.07 704-7) BANDS (test code = MARKED INCREASED A 8496391027) DOHLE BODIES (test code = Present A 7792-5) Lab Interpretation (test Abnormal code = 32456-6) [facility]. METABOLIC PANEL ([id number])2021-03-19 18:30:14 Test Item Value Reference Range Interpretation Comments NA (test code = 129 mmol/L 135-145 L 1068037039) K (test code = 3.3 mmol/L 3.5-5.0 L 5685810290) CL (test code = 97 mmol/L 98-108 L 5604417196) CO2 TOTAL (test code = 23 mmol/L 23-31 6617357013) AGAP (test code = 2-16 4312184779) BUN (test code = 8 mg/dL 7-23 4120772668) GLUCOSE (test code = 124 mg/dL 70-110 H 4476609155) CREATININE (test code = 0.71 mg/dL 0.50-1.04 6056732650) TOTAL BILI (test code = 0.7 mg/dL 0.1-1.5 5291526020) CALCIUM (test code = 8.4 mg/dL 8.6-10.6 L 3549104155) T PROTEIN (test code = 9.2 g/dL 6.3-8.2 H 1820168664) ALBUMIN (test code = 3.7 g/dL 3.5-5.0 0785488253) ALK PHOS (test code = 81 U/L 34-122 7869988436) ALTv (test code = 19 U/L 5-35 1742-6) AST(SGOT) (test code = 40 U/L 13-40 6321134027) eGFR (test code = mL/min/1.73m2 9773432368) KEYONNA (test code = KEYONNA) Association of [...] tests). Lab Interpretation Abnormal (test code = 44734-5) [facility]"
[2023-03-31 20:02] LABS: SARS-CoV-2 Antigen Rapid Res Negative (Negative)
--- NOTE | 2023-03-31 20:25 | EDPHYS ---
Physician Documentation [facility] Name: Tiana Mcrae Age: 58 yrs Sex: Female : 1965 Arrival Date: 03/31/2023 Time: 19:00 Bed 10 Private MD: ED Physician Solomon Matos HPI: 03/31 19:58 This 58 yrs old Black Female presents to ER via Ambulatory with complaints of Flu snw Symptoms. 19:58 Onset: The symptoms/episode began/occurred suddenly, 4 day(s) ago, and became snw persistent. Associated signs and symptoms: Pertinent positives: cough, headache, sore throat, wheezing. It is unknown whether or not the patient has had similar symptoms in the past. The patient has not recently seen a physician. +smoker. Historical: - Allergies: 19:33 No Known Allergies; jw7 - Home Meds: 19:33 None [Active]; jw7 - PMHx: 19:33 chronic back pain; Migraine; sinus infection; jw7 - PSHx: 19:33 hysterectomy; jw7 - Immunization history:: Adult Immunizations not up to date, Client reports receiving the 1st dose of the Covid vaccine, Flu vaccine is not up to date. - Social history:: Smoking status: Patient reports the use of cigarette tobacco products, smokes one-half pack cigarettes per day, Patient/guardian denies using alcohol, street drugs, IV drugs. ROS: 19:55 Constitutional: Negative for fever, chills, and weight loss, Eyes: Negative for injury, snw pain, redness, and discharge, ENT: Negative for injury, pain, and discharge, Neck: Negative for injury, pain, and swelling, Cardiovascular: Negative for chest pain, palpitations, and edema, Abdomen/GI: Negative for abdominal pain, nausea, vomiting, diarrhea, and constipation, Back: Negative for injury and pain, : Negative for injury, bleeding, discharge, and swelling, MS/Extremity: Negative for injury and deformity, Skin: Negative for injury, rash, and discoloration, Neuro: Negative for weakness, numbness, tingling, and seizure, + headache Psych: Negative for depression, anxiety, suicide ideation, homicidal ideation, and hallucinations, 19:55 Respiratory: Positive for cough, wheezing, expiratory, Exam: 19:55 Constitutional: This is a well developed, well nourished patient who is awake, alert, snw and in no acute distress. Head/Face: Normocephalic, atraumatic. Eyes: Pupils equal round and reactive to light, extra-ocular motions intact. Lids and lashes normal. Conjunctiva and sclera are non-icteric and not injected. Cornea within normal limits. Periorbital areas with no swelling, redness, or edema. ENT: Nares patent. No nasal discharge, no septal abnormalities noted. Tympanic membranes are normal and external auditory canals are clear. Oropharynx with no redness, swelling, or masses, exudates, or evidence of obstruction, uvula midline. Mucous membranes moist. Neck: Trachea midline, no thyromegaly or masses palpated, and no cervical lymphadenopathy. Supple, full range of motion without nuchal rigidity, or vertebral point tenderness. No Meningismus. Chest/axilla: Normal chest wall appearance and motion. Nontender with no deformity. No lesions are appreciated. Cardiovascular: Regular rate and rhythm with a normal S1 and S2. No gallops, murmurs, or rubs. Normal PMI, no JVD. No pulse deficits. 19:55 Abdomen/GI: Soft, non-tender, with normal bowel sounds. No distension or tympany. No guarding or rebound. No evidence of tenderness throughout. Back: No spinal tenderness. No costovertebral tenderness. Full range of motion. Skin: Warm, dry with normal turgor. Normal color with no rashes, no lesions, and no evidence of cellulitis. MS/ Extremity: Pulses equal, no cyanosis. Neurovascular intact. Full, normal range of motion. Neuro: Awake and alert, GCS 15, oriented to person, place, time, and situation. Cranial nerves II-XII grossly intact. Motor strength 5/5 in all extremities. Sensory grossly intact. Cerebellar exam normal. Normal gait. Psych: Awake, alert, with orientation to person, place and time. Behavior, mood, and affect are within normal limits. 19:55 Respiratory: the patient does not display signs of respiratory distress, Respirations: shallow respirations, that is mild, Breath sounds: bronchial sounds, wheezing: expiratory is heard diffusely, Vital Signs: 19:29 BP 149 / 97; Pulse 83; Resp 18; Temp 98.5; Pulse Ox 95% on R/A; Weight 52.16 kg; Height jw7 5 ft. 3 in. ; Pain 8/10; 21:06 BP 140 / 92; Pulse 79; Resp 18; Pulse Ox 97% on R/A; Pain 8/10; km8 21:43 BP 137 / 91; Pulse 76; Resp 18; Pulse Ox 96% on R/A; km8 19:29 Body Mass Index 20.37 (52.16 kg, 160.02 cm) jw7 19:29 Pain Scale: Adult jw7 21:06 Pain Scale: Adult km8 Carrie Coma Score: 21:00 Eye Response: spontaneous(4). Motor Response: obeys commands(6). Verbal Response: km8 oriented(5). Total: 15. MDM: 19:14 Patient medically screened. snw 19:59 Differential diagnosis: bronchitis, flu, URI, Copd exacerbation. Data interpreted: snw Pulse oximetry: on room air is 95 %. Interpretation: normal. Data reviewed: vital signs, nurses notes, lab test result(s). I considered the following discharge prescriptions or medication management in the emergency department Medications were administered in the Emergency Department. See MAR. Counseling: I had a detailed discussion with the patient and/or guardian regarding the historical points, exam findings, and any diagnostic results supporting the discharge/admit diagnosis, lab results, the need for outpatient follow up, for definitive care, to return to the emergency department if symptoms worsen or persist or if there are any questions or concerns that arise at home. Response to treatment: the patient's symptoms have mildly improved after treatment. Special discussion: Based on the history and exam findings, there is no indication for further emergent testing or inpatient evaluation. I discussed with the patient/guardian the need to see the primary care provider for further evaluation of the symptoms. 03/31 19:38 Order name: SARS RAPID; Complete Time: 20:08 snw 03/31 19:38 Order name: Flu; Complete Time: 20:24 snw Administered Medications: 21:06 Drug: AZITHromycin PO 500 mg PO once Route: PO; 21:45 Follow up: Response: No adverse reaction 21:06 Drug: Albuterol Inhalation 2.5 mg Inhalation once Route: Inhalation; 21:45 Follow up: Response: No adverse reaction 21:06 Drug: Magnesium PO 400 mg PO once Route: PO; 21:45 Follow up: Response: No adverse reaction 8 21:06 Drug: predniSONE PO 40 mg PO once Route: PO; 21:45 Follow up: Response: No adverse reaction 21:06 Drug: Famotidine PO 20 mg PO once Route: PO; 21:45 Follow up: Response: No adverse reaction 8 21:06 Drug: ZyrTEC - Cetirizine PO 10 mg PO once Route: PO; 21:45 Follow up: Response: No adverse reaction Disposition: 20:26 I was immediately available on-site in the Emergency Department for consultation in the ms3 care of the patient. Disposition Summary: 03/31/23 20:25 Discharge Ordered Notes: Location: Home snw Condition: Stable snw Diagnosis - COPD/ Chronic obstructive pulmonary disease with (acute) exacerbation snw Followup: snw - With: Emergency Department - When: As needed - Reason: Worsening of condition Followup: snw - With: Private Physician - When: 2 - 3 days - Reason: Recheck today's complaints, Continuance of care, Re-evaluation by your physician Discharge Instructions: - Discharge Summary Sheet snw - Acute Bronchitis, Adult snw - Chronic Obstructive Pulmonary Disease Exacerbation snw - COPD and Physical Activity snw - Living With COPD snw Forms: - Work release form snw - Medication Reconciliation Form snw - Thank You Letter snw - Antibiotic Education snw - Prescription Opioid Use snw - Patient Portal Instructions snw - Leadership Thank You Letter snw Prescriptions: - albuterol sulfate 90 mcg/actuation Inhalation HFA Aerosol Inhaler - inhale 2 puff INHALATION route every 4-6 hours for 7 days; 1 Unspecified; snw Refills: 0, Product Selection Permitted - Prednisone 20 mg Oral Tablet - take 2 tablets ORAL route once daily for 5 days; 10 tablet; Refills: 0, Product snw Selection Permitted - Pepcid 20 mg Oral Tablet - take 1 tablet ORAL route once daily; 20 tablet; Refills: 0, Product Selection snw Permitted - Zithromax 500 mg Oral Tablet - take 1 tablet ORAL route once daily for 5 days; 5 tablet; Refills: 0, Product snw Selection Permitted Signatures: Dispatcher [employer] Magalis Valenzuela FNP-C FNP-Solomon Vigil DO DO ms3 Joanna Rodriguez RN RN jw7 Maria De Jesus Russell, RN RN km8
--- NOTE | 2023-03-31 20:25 | ER ---
Nurse's Notes [facility] Name: Tiana Mcrae Age: 58 yrs Sex: Female : 1965 Arrival Date: 03/31/2023 Time: 19:00 Bed 10 Private MD: Diagnosis: COPD/ Chronic obstructive pulmonary disease with (acute) exacerbation Presentation: 03/31 19:29 Chief complaint: Patient states: "I've been having Migraines, itchy throat with pain jw7 during cough/breathing, and wheezing". Coronavirus screen: Client presents with at least one sign or symptom that may indicate coronavirus-19. Standard/surgical mask placed on the client. Ebola Screen: No symptoms or risks identified at this time. Initial Sepsis Screen: Does the patient meet any 2 criteria? No. Patient's initial sepsis screen is negative. Does the patient have a suspected source of infection? No. Patient's initial sepsis screen is negative. Risk Assessment: Do you want to hurt yourself or someone else? Patient reports no desire to harm self or others. Onset of symptoms was March 27, 2023. 19:29 Method Of Arrival: Ambulatory jw7 19:29 Acuity: SD 3 jw7 Triage Assessment: 19:33 General: Appears in no apparent distress. uncomfortable, Behavior is calm, cooperative, jw7 appropriate for age. Pain: Complains of pain in forehead, right yarsani, left yarsani and back Pain does not radiate. Pain currently is 8 out of 10 on a pain scale. Quality of pain is described as sharp, throbbing, pulsating, Pain began 2-3 days ago. Is continuous, Alleviated by nothing. Aggravated by increased activity, Noted to be quiet/stoic. EENT: Reports nasal congestion nasal discharge pain when coughing. Neuro: Cooper Agitation-Sedation Scale (RASS): 0 - Alert and Calm Level of Consciousness is awake, alert, obeys commands, Oriented to person, place, time, situation. Cardiovascular: Capillary refill < 3 seconds Clubbing of nail beds is absent JVD is absent Patient's skin is warm and dry. Respiratory: Airway is patent Trachea midline Respiratory effort is even, unlabored, Respiratory pattern is regular, symmetrical, Parent/caregiver reports the patient having shortness of breath cough that is pain with respiration pain with cough. GI: No deficits noted. No signs and/or symptoms were reported involving the gastrointestinal system. : No deficits noted. No signs and/or symptoms were reported regarding the genitourinary system. Derm: No signs and/or symptoms reported regarding the dermatologic system. Skin is intact, is healthy with good turgor, Skin is dry, Skin is normal, Skin temperature is warm. Musculoskeletal: No deficits noted. No signs and/or symptoms reported regarding the musculoskeletal system. Historical: - Allergies: 19:33 No Known Allergies; jw7 - Home Meds: 19:33 None [Active]; jw7 - PMHx: 19:33 chronic back pain; Migraine; sinus infection; jw7 - PSHx: 19:33 hysterectomy; jw7 - Immunization history:: Adult Immunizations not up to date, Client reports receiving the 1st dose of the Covid vaccine, Flu vaccine is not up to date. - Social history:: Smoking status: Patient reports the use of cigarette tobacco products, smokes one-half pack cigarettes per day, Patient/guardian denies using alcohol, street drugs, IV drugs. Screenin:00 [facility] ED Fall Risk Assessment (Adult) History of falling in the last 3 months, km8 including since admission No falls in past 3 months (0 pts) Confusion or Disorientation No (0 pts) Intoxicated or Sedated No (0 pts) Impaired Gait No (0 pts) Mobility Assist Device Used No (0 pt) Altered Elimination No (0 pt) Score/Fall Risk Level 0 - 2 = Low Risk Oriented to surroundings, Maintained a safe environment, Educated pt \\T\\ family on fall prevention, incl call for assistance when getting out of bed, Assessed \\T\\ reinforced patient's understanding of fall precautions. Abuse screen: Denies threats or abuse. Denies injuries from another. Nutritional screening: No deficits noted. Tuberculosis screening: No symptoms or risk factors identified. Assessment: 21:00 General: Appears in no apparent distress. uncomfortable, Behavior is calm, cooperative, km8 appropriate for age. Pain: Complains of pain in generalized body aches Pain currently is 8 out of 10 on a pain scale. Neuro: Cooper Agitation-Sedation Scale (RASS): 0 - Alert and Calm Level of Consciousness is awake, alert, obeys commands, Oriented to person, place, time, situation. Cardiovascular: Capillary refill < 3 seconds Patient's skin is warm and dry. Respiratory: Reports shortness of breath cough that is Airway is patent Respiratory effort is even, unlabored, Respiratory pattern is regular, symmetrical. GI: No signs and/or symptoms were reported involving the gastrointestinal system. : No signs and/or symptoms were reported regarding the genitourinary system. EENT: No signs and/or symptoms were reported regarding the EENT system. Derm: Skin is intact, is healthy with good turgor, Skin is dry, Skin is normal, Skin temperature is warm. Musculoskeletal: No signs and/or symptoms reported regarding the musculoskeletal system. Range of motion: intact in all extremities. Vital Signs: 19:29 BP 149 / 97; Pulse 83; Resp 18; Temp 98.5; Pulse Ox 95% on R/A; Weight 52.16 kg; Height jw7 5 ft. 3 in. ; Pain 8/10; 21:06 BP 140 / 92; Pulse 79; Resp 18; Pulse Ox 97% on R/A; Pain 8/10; km8 21:43 BP 137 / 91; Pulse 76; Resp 18; Pulse Ox 96% on R/A; km8 19:29 Body Mass Index 20.37 (52.16 kg, 160.02 cm) jw7 19:29 Pain Scale: Adult jw7 21:06 Pain Scale: Adult km8 Carrie Coma Score: 21:00 Eye Response: spontaneous(4). Motor Response: obeys commands(6). Verbal Response: km8 oriented(5). Total: 15. ED Course: 19:03 Patient arrived in ED. mr 19:09 Mag[facility] Mitchell [facility]C [facility] snw 19:09 Solomon Matos DO is Attending Physician. snw 19:33 Triage completed. jw7 19:33 Arm band placed on. jw7 19:43 Flu Sent. jw7 19:44 SARS RAPID Sent. jw7 21:00 Patient has correct armband on for positive identification. Bed in low position. Call km8 light in reach. Side rails up X 1. Pulse ox on. NIBP on. Door closed. Lights dimmed. Warm blanket given. 21:00 No provider procedures requiring assistance completed. Patient did not have IV access km8 during this emergency room visit. Patient maintains SpO2 saturation greater than 95% on room air. 21:43 Provided Education on: d/c teaching. km8 Administered Medications: 21:06 Drug: AZITHromycin PO 500 mg PO once Route: PO; km8 21:45 Follow up: Response: No adverse reaction km8 21:06 Drug: Albuterol Inhalation 2.5 mg Inhalation once Route: Inhalation; km8 :45 Follow up: Response: No adverse reaction km8 21:06 Drug: Magnesium PO 400 mg PO once Route: PO; km8 21:45 Follow up: Response: No adverse reaction km8 21:06 Drug: predniSONE PO 40 mg PO once Route: PO; km8 21:45 Follow up: Response: No adverse reaction km8 21:06 Drug: Famotidine PO 20 mg PO once Route: PO; km8 21:45 Follow up: Response: No adverse reaction km8 21:06 Drug: ZyrTEC - Cetirizine PO 10 mg PO once Route: PO; km8 :45 Follow up: Response: No adverse reaction km8 Medication: 21:00 VIS not applicable for this client. km8 Outcome: 20:25 Discharge ordered by MD. blankenship 21:44 Discharged to home ambulatory, km8 21:44 Condition: good :44 Condition: improved 21:44 Discharge instructions given to patient, Instructed on discharge instructions, follow up and referral plans. medication usage, Demonstrated understanding of instructions, follow-up care, medications, Prescriptions given X 4, 21:46 Patient left the ED. km8 Signatures: Magalis Mitchell, PLANER STONE-C PLANER STONE-Csnw Sandi Fischer, Reg Reg mr RodriguezJoanna, RN RN jw7 Maria De Jesus Russell RN RN km8
[2023-03-31] MEDS ORDERED: predniSONE 20 MG TAB ONE (21:11)
[2023-03-31] MEDS ORDERED: MAGNESIUM OXIDE 400 MG TAB ONE (21:11)
[2023-03-31] MEDS ORDERED: CETIRIZINE HCL 5 MG TABLET ONE (21:11)
[2023-03-31] MEDS ORDERED: FAMOTIDINE 20 MG TAB ONE (21:12)
[2023-03-31] MEDS ORDERED: AZITHROMYCIN 250 MG TAB ONE (21:12)
[2023-03-31] MEDS ORDERED: ALBUTEROL 2.5 MG/3 ML NEB SOL ONE (21:12)
[2023-03-31 22:05] VITALS: TEMP 98.5
[2023-03-31 22:08] VITALS: BP 137/91; O2SAT 96
== END 2023-03-31 21:46 | disposition home or self-care (01) ==
LOC: ER 19:00
DX: J44.1 Chronic obstructive pulmonary disease with (acute) exacerbation (principal); F17.210 Nicotine dependence, cigarettes, uncomplicated; Z11.52 Encounter for screening for COVID-19
CPT/HCPCS: 36415; 87804 ×2; 99285; 87811; J7512; J7613

== ENCOUNTER → 2023-07-25 | Emergency (ER) | payer OTHER, SELFPAY ==
[~2023-07-25] MED LIST: KETOROLAC 30 MG/ML INJ ONE
--- OUTSIDE RECORDS SUMMARY | 2023-07-25 17:35 | XMS REPORT | Continuity of Care Document ---
Author Name Unknown Address [address] [place] [address] [facility] thconnect Address [address] [place] [address] Care Team Providers Care Certified Veterinary Technician Name Role Phone PCP, PATIENT DOES NOT HAVE A Primary Care Physic sravan Unavailable CHAMP HERNANDEZ Attending Clinician Unavailable FERNANDOMonday Attending Clinician Unavailable ANNITA LEW Attending Clinician Unavailable SAURAV EISENBERG Attending Clinician Unavailable Saurav Esquivel Attending Clinician [phone] Krysta Louis DO Attending Clinician [phone] KRYSTA LOUIS Attending Clinician Unavailab KRYSTA Hinojosa Admitting Clinician Unavailab le Payers Payer Name Policy Type Policy Number Effective Date Expirati on Date Source CEDRICK BRYANT [employer]: HMO [employer] [address] ON [address] 9 [id number] 2022 00:00:00 [facility] [id number] 2022 00:00:00 Problems Condition Name Condition Details Condition Category Status Onset Date Resolution Date Last Treatment Date Treating Clinician Comments Source No known active problems No known active problems Disease [facility] Allergies, Adverse Reactions, Alerts Allergy Name Allergy Type Status Severity Reaction(s) Onset Date Inactive Date Treating Clinician Comments Source NO KNOWN ALLERGIE S Drug Class Active [facility] Social History Social Habit Start Date Stop Date Quantity Comments Source History of tobacco use 2002-09-30 00:00:00 Cigarette Smoker Salome Fleming - External Gender identity Rema onel Fleming - External Sexual orientation Ghassan bruno Lonnie - External Cigarettes smoked current (pack per day) - Reported 2022-10-05 00:00:00 2022-10-05 00:00:00 Salome Fleming - External Cigarette pack-years 2022-10-05 00:00:00 2022-10-05 00:00:00 Salome Fleming - External Tobacco use and exposure 2022-10-05 00:00:00 2022-10-05 00:00:00 Smokeless tobacco non-user Salome Fleming - External Alcohol intake 2022-10-05 00:00:00 2022-10-05 00:00:00 Ex-drinker (finding) Salome Fleming - External History of Social function 2022-10-05 00:00:00 2022-10-05 00:00:00 Salome Fleming - External Exposure to SARS-CoV-2 (event) 2022-04-03 00:00:00 2022-04-13 16:18:00 Not sure [facility] Sex Assigned At 1965 00:00:00 1965 00:00:00 Salome Fleming - External Smoking Status Start Date Stop Date Source Tobacco smoking consumption unknown [facility] Smokes tobacco daily 2022-10-05 00:00:00 Salome Fleming - External Medications Ordered Medication Name Filled Medication Name Start Date Stop Date Current Medication? Ordering Clinician Indication Dosage Frequency Signature (SIG) Comments Components Source Etodolac 400 MG oral Tablet 10-05 00:00: 00 Yes [id number] 400mg Take 1 tablet (400 mg total) by mouth 2 times daily Take with food Salome obregon Tizanidine HCl 4 MG oral Tablet 10-05 00:00: 00 Yes [id number] 4mg Q.25D Take 1 tablet (4 mg total) by mouth every 6 hours as needed for muscle spasms Salome obregon Gabapentin 100 MG oral Capsule 10-05 00:00: 00 Yes [id number] 100mg Take 1 capsule (100 mg total) by mouth 3 times daily Salome obregon methylPREDN ISolone 4 MG oral Tablet Therapy Pack 09-06 00:00: 00 Yes [id number] 1{rianna} Take 1 rianna by mouth See Admin Instructio ns Use as directed Salome obregon Amoxicillin -Pot Clavulanate 875-125 MG oral Tablet 09-06 00:00: 00 Yes [id number] 1{tbl} Take 1 tablet by mouth 2 times daily Salome obregon Albuterol HFA 108 (90 Base) MCG/ACT IN AERS 09-06 00:00: 00 Yes [id number] 2{puff} Q.25D Inhale 2 puffs into the lungs every 6 hours as needed for wheezing Salome obregon FENTanyl PF (SUBLIMAZE (PF)) injection 50 mcg 2021-05 22:45: 00 04-13 22:59 :00 No 50ug 50 mcg, Intramuscu lar, ONCE, 1 dose, On Mon04/13/22 at 1645, STAT [facility] acetaminoph en (TYLENOL) tablet 650 mg 2020-05 18:45: 00 03-19 17:55 :00 No 650mg 650 mg, Oral, ONCE, 1 dose, On Mon03/19/21 at 1245, RONAN [facility] ketorolac (TORADOL) injection 30 mg 2020-05 18:45: 00 03-19 17:55 :00 No 30mg 30 mg, Slow IV Push, ONCE, 1 dose, On Mon03/19/21 at 1245, RONAN
Fa culty member approving Restricted medication : KRYSTA LOUIS [facility] ondansetron (ZOFRAN (PF)) injection 4 mg 2020-05 18:45: 00 03-19 17:55 :00 No 4mg 4 mg, Slow IV Push, ONCE, 1 dose, On Mon03/19/21 at 1245, RONAN [facility] NaCl 0.9% (NS) bolus infusion 1,000 mL 2020-05 18:45: 00 03-19 19:55 :00 No 1000mL at 999 mL/hr, 1,000 mL, IV Infusion, ONCE, 1 dose, On Mon03/19/21 at 1245, RONAN [facility] albuterol 90 mcg/actuati on inhaler 2020-05 00:00: 00 Yes [id number] 2{puff} Inhale 2 Puffs every 4 (four) hours as needed for Wheezing or Shortness of Breath. [facility] ondansetron (ZOFRAN ODT) 4 mg disintegrat ing tablet 2020-05 00:00: 00 Yes [id number] 4mg Take 1 tablet by mouth every 8 (eight) hours as needed for Nausea and Vomiting (N/V). [facility] benzonatate 100 mg capsule 2020-05 00:00: 00 Yes [id number] 100mg Take 1 capsule by mouth 3 (three) times daily as needed for Cough. [facility] bromphenira mine-pseudo ephedrine-D M (BROMFED DM) 2-30-10 mg/5 mL syrup 2020-05 00:00: 00 Yes [id number] 5mL Take 5 mL by mouth 4 (four) times daily as needed for Cold symptoms. [facility] albuterol 90 mcg/actuati on inhaler 2020-05 00:00: 00 Yes [id number] 2{puff} Inhale 2 Puffs every 4 (four) hours as needed for Wheezing or Shortness of Breath. [facility] ondansetron (ZOFRAN ODT) 4 mg disintegrat ing tablet 2020-05 00:00: 00 Yes [id number] 4mg Take 1 tablet by mouth every 8 (eight) hours as needed for Nausea and Vomiting (N/V). [facility] benzonatate 100 mg capsule 2020-05 00:00: 00 Yes [id number] 100mg Take 1 capsule by mouth 3 (three) times daily as needed for Cough. [facility] bromphenira mine-pseudo ephedrine-D M (BROMFED DM) 2-30-10 mg/5 mL syrup 2020-05 00:00: 00 Yes [id number] 5mL Take 5 mL by mouth 4 (four) times daily as needed for Cold symptoms. [facility] Vital Signs Vital Name Observation Time Observation Value Comments Brittany davies Systolic blood pressure 2022-10-05 18:28:00 122 mm[Hg] Salome Monsivaisybo ld - External Diastolic blood pressure 2022-10-05 18:28:00 80 mm[Hg] Salome Monsivaisybo ld - External Heart rate 2022-10-05 18:28:00 86 /min Phyllis stone Seybold - External Body temperature 2022-10-05 18:28:00 36.83 Denise Salome Monsivaisybold - External Respiratory rate 2022-10-05 18:28:00 16 /min Salome Monsivaisybold - External Body weight 2022-10-05 18:28:00 53.252 kg Rema Fleming - External Oxygen saturation in Arterial blood by Pulse oximetry 2022-10-05 18:28:00 98 /min room air Salome Liuo ld - External Systolic blood pressure 2022-04-13 22:18:00 143 mm[Hg] [facility] Diastolic blood pressure 2022-04-13 22:18:00 95 mm[Hg] [facility] Heart rate 2022-04-13 22:18:00 72 /min [facility] Body temperature 2022-04-13 22:18:00 36.5 Denise [facility] Respiratory rate 2022-04-13 22:18:00 20 /min [facility] Body height 2022-04-13 22:18:00 160 cm [facility] Body weight 2022-04-13 22:18:00 54.432 kg [facility] BMI 2022-04-13 22:18:00 21.26 kg/m2 [facility] Oxygen saturation in Arterial blood by Pulse oximetry 2022-04-13 22:18:00 99 /min [facility] Systolic blood pressure 2021-03-19 20:00:00 102 mm[Hg] [facility] Diastolic blood pressure 2021-03-19 20:00:00 73 mm[Hg] [facility] Heart rate 2021-03-19 20:00:00 81 /min [facility] Respiratory rate 2021-03-19 20:00:00 14 /min [facility] Oxygen saturation in Arterial blood by Pulse oximetry 2021-03-19 20:00:00 97 /min [facility] Body temperature 2021-03-19 17:34:00 39.11 Denise [facility] Body weight 2021-03-19 17:34:00 53.524 kg [facility] Procedures Procedure Date / Time Performed Performing Clinicia n Source LUMBAR SPINE 2 VIEWS 2022-10-05 19:37:50 Adelina Hightower - External THORACIC SPINE 3 VIEWS 2022-10-05 19:37:06 Mitchell Hightower - External CONSENT/REFUSAL FOR DIAGNOSIS AND TREATMENT 2022-04-13 22:10:03 Doctor Unassigned, [place] [facility] XR CHEST 1 VW 2021-03-19 18:10:58 Krysta Louis [facility] COMP. METABOLIC PANEL ([id number]) 2021-03-19 17:53:00 Krysta Louis [facility] CBC WITH DIFF 2021-03-19 17:53:00 Krysta Louis [facility] CONSENT/REFUSAL FOR DIAGNOSIS AND TREATMENT 2021-03-19 17:29:16 Doctor Unassigned, [place] [facility] NOTICE OF PRIVACY PRACTICES 2021-03-19 17:27:40 Doctor Unassigned, [place] [facility] Encounters Start Date/Time End Date/Time Encounter Type Admission Type Attending [facility] Care Facility Care Department Encounter ID Source 2022-12-21 14:00:00 2022-12-21 14:00:00 Outpatient CHAMP HERNANDEZ [id number] Salome Fleming 2022-10-05 14:35:00 2022-10-05 14:35:00 Outpatient SALOME BROWN [id number] Salome Fleming 2022-10-05 14:30:00 2022-10-05 14:30:00 Outpatient SALOME BROWN [id number] [facility] 2022-10-05 14:00:00 2022-10-05 14:00:00 Outpatient MITCHELL HIGHTOWER [id number] Salome Fleming 2022-09-23 08:00:00 2022-09-23 08:00:00 Outpatient MITCHELL HIGHTOWER [id number] [facility] 2022-09-20 00:00:00 2022-09-20 00:00:00 Outpatient ANNITA LEW [id number] [facility] 2022-09-06 15:30:00 2022-09-06 15:30:00 Outpatient MITCHELL HIGHTOWER [id number] Salome [facility] 2022-04-13 16:20:00 2022-04-13 17:17:00 Emergency X SAURAV EISENBERG [facility] ERT [id number] [facility] 2022-04-13 16:20:00 2022-04-13 17:17:00 Emergency Saurav Eisenberg [facility] [id number] [facility] 2021-03-19 11:37:00 2021-03-19 14:26:00 Emergency Krysta Louis [place] [facility] [id number] [facility] 2021-03-19 11:37:00 2021-03-19 14:26:00 Emergency X MISSY KRYSTA [facility] ERT [id number] [facility] Results Test Description Test Time Test Comments Results Result Co mments Source [id number]-19 18:30:14* Test Item Value Reference Range Interpretation Comme nts NA (test code = 0987222876) 129 mmol/L 135-145 L K (test code = 7513606337) 3.3 mmol/L 3.5-5.0 L CL (test code = 1891515374) 97 mmol/L 98-108 L CO2 TOTAL (test code = 5658402856) 23 mmol/L 23-31 AGAP (test code = 9389881613) 2-16 BUN (test code = 7984285588) 8 mg/dL 7-23 GLUCOSE (test code = 5111712877) 124 mg/dL 70-110 H CREATININE (test code = 4071475316) 0.71 mg/dL 0.50-1.04 TOTAL BILI (test code = 2871399448) 0.7 mg/dL 0.1-1.1 CALCIUM (test code = 1777237589) 8.4 mg/dL 8.6-10.6 L T PROTEIN (test code = 9656089983) 9.2 g/dL 6.3-8.2 H ALBUMIN (test code = 7131387516) 3.7 g/dL 3.5-5.0 ALK PHOS (test code = 9810529789) 81 U/L 34-122 ALTv (test code = 1742-6) 19 U/L 5-35 AST(SGOT) (test code = 5815167378) 40 U/L 13-40 eGFR (test code = 3262059709) mL/min/1.73m2 KEYONNA (test code = KEYONNA) Association of [...] or abnormalities in imaging tests). Lab Interpretation (test code = 15667-5) Abnormal [facility]"
--- NOTE | 2023-07-25 17:55 | ER ---
Nurse's Notes [facility] Name: Tiana Mcrae Age: 58 yrs Sex: Female : 1965 Arrival Date: 07/25/2023 Time: 17:32 Bed 4 Private MD: Diagnosis: Acute pharyngitis, unspecified Presentation: 07/24 17:45 Chief complaint: Patient states: Migraine CHRISTIANSEN with nausea for 9 days. Sore tongue and ll1 throat for 5 days. No fever. Coronavirus screen: Client denies travel out of the [place] in the last 14 days. At this time, the client does not indicate any symptoms associated with coronavirus-19. Ebola Screen: Patient denies travel to an Ebola-affected area in the 21 days before illness onset. Initial Sepsis Screen: Does the patient meet any 2 criteria? No. Patient's initial sepsis screen is negative. Does the patient have a suspected source of infection? No. Patient's initial sepsis screen is negative. Risk Assessment: Do you want to hurt yourself or someone else? Patient reports no desire to harm self or others. Onset of symptoms was July 17, 2023. 17:45 Method Of Arrival: Ambulatory ll1 17:45 Acuity: SD 3 ll1 Triage Assessment: 17:45 General: Appears uncomfortable, ill, Behavior is calm, cooperative, appropriate for ll1 age, Reports feeling ill for fatigue for. Pain: Complains of pain in head Pain currently is 8 out of 10 on a pain scale. Quality of pain is described as aching, throbbing. EENT: Reports pain when swallowing tongue feels sore. Neuro: Reports headache. GI: Reports nausea. Historical: - Allergies: 17:44 No Known Allergies; ll1 - PMHx: 17:44 chronic back pain; Migraine; sinus infection; ll1 - PSHx: 17:44 hysterectomy; ll1 - Immunization history:: Adult Immunizations up to date. - Social history:: Smoking status: Patient reports the use of cigarette tobacco products, smokes one-half pack cigarettes per day. Screenin:45 [facility] ED Fall Risk Assessment (Adult) History of falling in the last 3 months, ko1 including since admission No falls in past 3 months (0 pts) Confusion or Disorientation No (0 pts) Intoxicated or Sedated No (0 pts) Impaired Gait No (0 pts) Mobility Assist Device Used No (0 pt) Altered Elimination No (0 pt) Score/Fall Risk Level 0 - 2 = Low Risk Oriented to surroundings, Maintained a safe environment, Educated pt \T\ family on fall prevention, incl call for assistance when getting out of bed, Assessed \T\ reinforced patient's understanding of fall precautions, Provided non-skid footwear, Hourly rounding (assess needs \T\ fall precautionary measures) done, Used ambulatory aids as needed (educated on \T\ assisted with), Used gait belt as appropriate. Abuse screen: Denies threats or abuse. Denies injuries from another. Nutritional screening: No deficits noted. Tuberculosis screening: No symptoms or risk factors identified. Assessment: 17:45 General: Appears in no apparent distress. uncomfortable, Behavior is calm, cooperative, ko1 appropriate for age. Pain: Complains of pain in headache and sore throat. Neuro: Reports headache in entire. Cardiovascular: No deficits noted. Respiratory: No deficits noted. GI: No deficits noted. : No deficits noted. EENT: Reports pain when swallowing. Derm: No deficits noted. Musculoskeletal: No deficits noted. Vital Signs: 17:45 BP 147 / 103; Pulse 83; Resp 17; Temp 97.7; Pulse Ox 100% ; Weight 53.52 kg; Height 5 ll1 ft. 3 in. ; Pain 10/10; 18:07 BP 145 / 99; Pulse 80; Resp 15; Temp 98; Pulse Ox 99% ; ko1 17:45 Body Mass Index 20.90 (53.52 kg, 160.02 cm) ll1 17:45 Pain Scale: Adult ll1 ED Course: 17:39 Patient arrived in ED. ae5 17:45 Darek Strong MD is Attending Physician. sp3 17:45 Patient has correct armband on for positive identification. Placed in gown. Bed in low ko1 position. Call light in reach. Provided Education on: na. Pulse ox on. NIBP on. Door closed. Noise minimized. Lights dimmed. 17:45 No provider procedures requiring assistance completed. Patient did not have IV access ko1 during this emergency room visit. 17:46 Triage completed. ll1 17:46 Arm band placed on Patient placed in an exam room, on a stretcher. ll1 17:55 Brittanie Brown, RN is Primary Nurse. ko1 Administered Medications: 17:58 Drug: Ketorolac IM 30 mg IM once Route: IM; Site: left deltoid; ko1 18:10 Follow up: Response: No adverse reaction ko1 Medication: 18:07 VIS not applicable for this client. ko1 Outcome: 17:54 Discharge ordered by . sp3 18:11 Discharged to home ambulatory, ko1 18:11 Condition: stable 18:11 Discharge instructions given to patient, Instructed on discharge instructions, follow up and referral plans. medication usage, Demonstrated understanding of instructions, follow-up care, medications, Prescriptions given X 1, 18:11 Patient left the ED. ko1 Signatures: Mary Thompson RN RN ll1 Darek Strong MD MD sp3 Brittanie Brown, RN RN ko1 Lesley Mora ae5
--- NOTE | 2023-07-25 17:55 | EDPHYS ---
Physician Documentation [facility] Name: Tiana Mcrae Age: 58 yrs Sex: Female : 1965 Arrival Date: 07/25/2023 Time: 17:32 Bed 4 Private MD: ED Physician Darek Strong HPI: 07/24 17:52 This 58 yrs old Black Female presents to ER via Ambulatory with complaints of Migrane, sp3 sore throat. 17:52 58-year-old female with a history of migraines now presents to the ED with sore throat sp3 for 7 to 8 days without fever. Patient states that it is been there for so long that she finally came in to "get it checked out". She denies any other symptoms including cough, earache, vomiting, rhinorrhea, chest pain, shortness of breath, abdominal pain, nausea, vomiting, diarrhea, neck stiffness, known sick contacts, travel history, or or any other signs or symptoms on ROS at this time.. Historical: - Allergies: 17:44 No Known Allergies; ll1 - PMHx: 17:44 chronic back pain; Migraine; sinus infection; ll1 - PSHx: 17:44 hysterectomy; ll1 - Immunization history:: Adult Immunizations up to date. - Social history:: Smoking status: Patient reports the use of cigarette tobacco products, smokes one-half pack cigarettes per day. ROS: 17:52 Constitutional: Negative for fever, chills, and weight loss, Eyes: Negative for injury, sp3 pain, redness, and discharge, Neck: Negative for injury, pain, and swelling, Cardiovascular: Negative for chest pain, palpitations, and edema, Respiratory: Negative for shortness of breath, cough, wheezing, and pleuritic chest pain, Abdomen/GI: Negative for abdominal pain, nausea, vomiting, diarrhea, and constipation, Back: Negative for injury and pain, MS/Extremity: Negative for injury and deformity, Skin: Negative for injury, rash, and discoloration, Psych: Negative for depression, anxiety, suicide ideation, homicidal ideation, and hallucinations, Allergy/Immunology: Negative for hives, rash, and allergies, Endocrine: Negative for neck swelling, polydipsia, polyuria, polyphagia, and marked weight changes, Hematologic/Lymphatic: Negative for swollen nodes, abnormal bleeding, and unusual bruising, 17:52 All other systems are negative, Exam: 17:52 Constitutional: This is a well developed, well nourished patient who is awake, alert, sp3 and in no acute distress. Head/Face: Normocephalic, atraumatic. Eyes: Pupils equal round and reactive to light, extra-ocular motions intact. Lids and lashes normal. Conjunctiva and sclera are non-icteric and not injected. Cornea within normal limits. Periorbital areas with no swelling, redness, or edema. Neck: Trachea midline, no thyromegaly or masses palpated, and no cervical lymphadenopathy. Supple, full range of motion without nuchal rigidity, or vertebral point tenderness. No Meningismus. Chest/axilla: Normal chest wall appearance and motion. Nontender with no deformity. No lesions are appreciated. Cardiovascular: Regular rate and rhythm with a normal S1 and S2. No gallops, murmurs, or rubs. Normal PMI, no JVD. No pulse deficits. Respiratory: Lungs have equal breath sounds bilaterally, clear to auscultation and percussion. No rales, rhonchi or wheezes noted. No increased work of breathing, no retractions or nasal flaring. Abdomen/GI: Soft, non-tender, with normal bowel sounds. No distension or tympany. No guarding or rebound. No evidence of tenderness throughout. Back: No spinal tenderness. No costovertebral tenderness. Full range of motion. Skin: Warm, dry with normal turgor. Normal color with no rashes, no lesions, and no evidence of cellulitis. MS/ Extremity: Pulses equal, no cyanosis. Neurovascular intact. Full, normal range of motion. Neuro: Awake and alert, GCS 15, oriented to person, place, time, and situation. Cranial nerves II-XII grossly intact. Motor strength 5/5 in all extremities. Sensory grossly intact. Cerebellar exam normal. Normal gait. Psych: Awake, alert, with orientation to person, place and time. Behavior, mood, and affect are within normal limits. 17:53 ENT: Mild pharyngeal erythema noted. No peritonsillar swelling, uvular shift or any sp3 other indications of peritonsillar abscess.. Vital Signs: 17:45 BP 147 / 103; Pulse 83; Resp 17; Temp 97.7; Pulse Ox 100% ; Weight 53.52 kg; Height 5 ll1 ft. 3 in. ; Pain 10/10; 18:07 BP 145 / 99; Pulse 80; Resp 15; Temp 98; Pulse Ox 99% ; ko1 17:45 Body Mass Index 20.90 (53.52 kg, 160.02 cm) ll1 17:45 Pain Scale: Adult ll1 MDM: 17:49 Patient medically screened. sp3 17:53 Data reviewed: vital signs. sp3 17:53 ED course: Given patient's length of symptoms, we will go ahead and treat sp3 prophylactically with Augmentin. 2-day work note as requested by patient. 30 mg of ketorolac IM prior to discharge.. Administered Medications: 17:58 Drug: Ketorolac IM 30 mg IM once Route: IM; Site: left deltoid; ko1 18:10 Follow up: Response: No adverse reaction ko1 Disposition Summary: 07/25/23 17:54 Discharge Ordered Notes: Location: Home sp3 Condition: Stable sp3 Diagnosis - Acute pharyngitis, unspecified sp3 Followup: sp3 - With: Private Physician - When: Upon discharge from the Emergency Department - Reason: Recheck today's complaints Discharge Instructions: - Discharge Summary Sheet sp3 - Pharyngitis sp3 Forms: - Medication Reconciliation Form sp3 - Thank You Letter sp3 - Antibiotic Education sp3 - Prescription Opioid Use sp3 - Patient Portal Instructions sp3 - Leadership Thank You Letter sp3 - Work release form ko1 Prescriptions: - Augmentin 875-125 mg Oral Tablet - take 1 tablet ORAL route every 12 hours for 10 days; 20 tablet; Refills: 0, sp3 Product Selection Permitted Signatures: Mary Thompson RN RN ll1 Darek Strong MD MD sp3 Brittanie Brown RN RN ko1
[2023-07-25 18:43] VITALS: BP 145/99; TEMP 98; O2SAT 99
== END ==
LOC: ER 17:32
DX: J02.9 Acute pharyngitis, unspecified (principal)
CPT/HCPCS: 96372; 99284

== ENCOUNTER 2024-02-09 08:46 | Emergency (ER) | payer OTHER, SELFPAY ==
--- OUTSIDE RECORDS SUMMARY | 2024-02-09 08:49 | XMS REPORT | Continuity of Care Document ---
Author Name Unknown Address [address] [place] [address] [facility] thconnect Address [address] [place] [address] Care Team Providers Care Senior Network Security Engineer Name Role Phone PCP, PATIENT DOES NOT HAVE A Primary Care Physic sravan Unavailable CHAMP HERNANDEZ Attending Clinician Unavailable FERNANDOMonday Attending Clinician Unavailable ANNITA LEW Attending Clinician Unavailable SAURAV EISENBERG Attending Clinician Unavailable Saurav Esquivel Attending Clinician [phone] Krysta Louis DO Attending Clinician [phone] KRYSTA LOUIS Attending Clinician Unavailab KRYSTA Hinojosa Admitting Clinician Unavailab le Payers Payer Name Policy Type Policy Number Effective Date Expirati on Date Source 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 ON [address]AND 9 [id number] 2022 00:00:00 [facility] [id number] 2022 00:00:00 Problems Condition Name Condition Details Condition Category Status Onset Date Resolution Date Last Treatment Date Treating Clinician Comments Source No known active problems No known active problems Disease [facility] Allergies, Adverse Reactions, Alerts Allergy Name Allergy Type Status Severity Reaction(s) Onset Date Inactive Date Treating Clinician Comments Source NO KNOWN ALLERGIE S Drug Class Active [facility] Social History Social Habit Start Date [...] (event) 2022-04-03 00:00:00 2022-04-13 16:18:00 Not sure [facility] Sex Assigned At 1965 00:00:00 1965 00:00:00 Salome Fleming - External Smoking Status Start Date Stop Date Source Tobacco smoking consumption unknown [facility] Smokes tobacco daily 2022-10-05 00:00:00 Salome Fleming - External Medications Ordered Medication Name Filled Medication Name Start Date Stop Date Current Medication? Ordering Clinician Indication Dosage Frequency Signature (SIG) Comments Components Source Etodolac 400 MG oral Tablet 10-05 00:00: 00 Yes [id number] 400mg Take 1 tablet (400 mg total) by mouth 2 times daily Take with food Salome obregon Tizanidine HCl 4 MG oral Tablet 10-05 00:00: 00 Yes [id number] 4mg Q.25D Take 1 tablet (4 mg total) by mouth every 6 hours as needed for muscle spasms Salome obregon Gabapentin 100 MG oral Capsule 10-05 00:00: 00 Yes [id number] 100mg Take 1 capsule (100 mg total) by mouth 3 times daily Salome obregon methylPREDN ISolone 4 MG oral Tablet Therapy Pack 09-06 00:00: 00 Yes [id number] 1{rianna} Take 1 rianna by mouth See Admin Instructio ns Use as directed Salome obregon Amoxicillin -Pot Clavulanate 875-125 MG oral Tablet 09-06 00:00: 00 Yes [id number] 1{tbl} Take 1 tablet by mouth 2 times daily Salome obregon Albuterol HFA 108 (90 Base) MCG/ACT IN AERS 09-06 00:00: 00 Yes [id number] 2{puff} Q.25D Inhale 2 puffs into the lungs every 6 hours as needed for wheezing Salome obregon FENTanyl PF (SUBLIMAZE (PF)) injection 50 mcg 2021-05 22:45: 00 04-13 22:59 :00 No 50ug 50 mcg, Intramuscu lar, ONCE, 1 dose, On Mon04/13/22 at 1645, STAT [facility] acetaminoph en (TYLENOL) tablet 650 mg 2020-05 18:45: 00 03-19 17:55 :00 No 650mg 650 mg, Oral, ONCE, 1 dose, On Mon03/19/21 at 1245, RONAN [facility] ketorolac (TORADOL) injection 30 mg 2020-05 18:45: 00 03-19 17:55 :00 No 30mg 30 mg, Slow IV Push, ONCE, 1 dose, On Mon03/19/21 at 1245, RONAN
Fa culty member approving Restricted medication : KRYSTA LOUIS [facility] ondansetron (ZOFRAN (PF)) injection 4 mg 2020-05 18:45: 00 03-19 17:55 :00 No 4mg 4 mg, Slow IV Push, ONCE, 1 dose, On Mon03/19/21 at 1245, RONAN [facility] NaCl 0.9% (NS) bolus infusion 1,000 mL 2020-05 18:45: 00 03-19 19:55 :00 No 1000mL at 999 mL/hr, 1,000 mL, IV Infusion, ONCE, 1 dose, On Mon03/19/21 at 1245, RONAN [facility] albuterol 90 mcg/actuati on inhaler 2020-05 00:00: 00 Yes [id number] 2{puff} Inhale 2 Puffs every 4 (four) hours as needed for Wheezing or Shortness of Breath. [facility] ondansetron (ZOFRAN ODT) 4 mg disintegrat ing tablet 2020-05 00:00: 00 Yes [id number] 4mg Take 1 tablet by mouth every 8 (eight) hours as needed for Nausea and Vomiting (N/V). [facility] benzonatate 100 mg capsule 2020-05 00:00: 00 Yes [id number] 100mg Take 1 capsule by mouth 3 (three) times daily as needed for Cough. [facility] bromphenira mine-pseudo ephedrine-D M (BROMFED DM) 2-30-10 mg/5 mL syrup 2020-05 00:00: 00 Yes [id number] 5mL Take 5 mL by mouth 4 (four) times daily as needed for Cold symptoms. [facility] Vital Signs Vital Name Observation Time Observation Value Comments S ource Systolic blood pressure 2022-10-05 18:28:00 122 mm[Hg] Salome taveras - External Diastolic blood pressure 2022-10-05 18:28:00 80 mm[Hg] Salome taveras - External Heart rate 2022-10-05 18:28:00 86 /min Phyllis Fleming - External Body temperature 2022-10-05 18:28:00 36.83 Denise Salome Fleming - External Respiratory rate 2022-10-05 18:28:00 16 /min Salome Fleming - External Body weight 2022-10-05 18:28:00 53.252 kg Rema Fleming - External Oxygen saturation in Arterial blood by Pulse oximetry 2022-10-05 18:28:00 98 /min room air Salome Seybo ld - External Systolic blood pressure 2022-04-13 22:18:00 143 mm[Hg] [facility] Diastolic blood pressure 2022-04-13 22:18:00 95 mm[Hg] [facility] Heart rate 2022-04-13 22:18:00 72 /min Unive [facility] Body temperature 2022-04-13 22:18:00 36.5 Denise [facility] Respiratory rate 2022-04-13 22:18:00 20 /min [facility] Body height 2022-04-13 22:18:00 160 cm [facility] Body weight 2022-04-13 22:18:00 54.432 kg [facility] BMI 2022-04-13 22:18:00 21.26 kg/m2 [facility] Oxygen saturation in Arterial blood by Pulse oximetry 2022-04-13 22:18:00 99 /min [facility] Systolic blood pressure 2021-03-19 20:00:00 102 mm[Hg] [facility] Diastolic blood pressure 2021-03-19 20:00:00 73 mm[Hg] [facility] Heart rate 2021-03-19 20:00:00 81 /[facility] Respiratory rate 2021-03-19 20:00:00 14 /min [facility] Oxygen saturation in Arterial blood by Pulse oximetry 2021-03-19 20:00:00 97 /min [facility] Body temperature 2021-03-19 17:34:00 39.11 Denise [facility] Body weight 2021-03-19 17:34:00 53.524 kg [facility] Procedures Procedure Date / Time Performed Performing Clinicia n Source LUMBAR SPINE 2 VIEWS 2022-10-05 19:37:50 Adelina Hightower - External THORACIC SPINE 3 VIEWS 2022-10-05 19:37:06 Mitchell Hightower - External CONSENT/REFUSAL FOR DIAGNOSIS AND TREATMENT 2022-04-13 22:10:03 Doctor Unassigned, [place] [facility] XR CHEST 1 VW 2021-03-19 18:10:58 Krysta oLuis [facility] COMP. METABOLIC PANEL (11101) 2021-03-19 17:53:00 Krysta Louis [facility] CBC WITH DIFF 2021-03-19 17:53:00 Krysta Louis [facility] CONSENT/REFUSAL FOR DIAGNOSIS AND TREATMENT 2021-03-19 17:29:16 Doctor Unassigned, [place] [facility] NOTICE OF PRIVACY PRACTICES 2021-03-19 17:27:40 Doctor Unassigned, [place] [facility] Encounters Start Date/Time End Date/Time Encounter Type Admission Type Attending [facility] Facility Care Department Encounter ID Source 2022-12-21 14:00:00 2022-12-21 14:00:00 Outpatient MARY CHAMP SALOME BROWN [id number] [facility] 2022-10-05 14:35:00 2022-10-05 14:35:00 Outpatient SALOME BROWN [id number] Sal[facility] 2022-10-05 14:30:00 2022-10-05 14:30:00 Outpatient SALOME BROWN [id number] Sal[facility] 2022-10-05 14:00:00 2022-10-05 14:00:00 Outpatient KATJAMITCHELL SALOME BROWN [id number] Sal[facility] 2022-09-23 08:00:00 2022-09-23 08:00:00 Outpatient CINTHYA HIGHTOWERAY SALOME BROWN [id number] [facility] 2022-09-20 00:00:00 2022-09-20 00:00:00 Outpatient LUCASLOBO ANNITA SALOME BROWN [id number] Sal[facility] 2022-09-06 15:30:00 2022-09-06 15:30:00 Outpatient KATJAMITCHELL SALOME BROWN [id number] [facility] 2022-04-13 16:20:00 2022-04-13 17:17:00 Emergency X SAURAV EISENBERG NVRENA ERT [id number] [facility] 2022-04-13 16:20:00 2022-04-13 17:17:00 Emergency Saurav Eisenberg [facility] [id number] [facility] 2021-03-19 11:37:00 2021-03-19 14:26:00 Emergency Krysta Louis [facility] [id number] [facility] 2021-03-19 11:37:00 2021-03-19 14:26:00 Emergency X KRYSTA LOUIS [facility] ERT [id number] [facility] Results Test Description Test Time Test Comments Results Result Co mments Source [facility] (71787)2021-03-19 18:30:14* Test Item Value Reference Range Interpretation Comme nts NA (test code = 7081998458) 129 mmol/L 135-145 L K (test code = 8578334301) 3.3 mmol/L 3.5-5.0 L CL (test code = 1292218799) 97 mmol/L 98-108 L CO2 TOTAL (test code = 8885153033) 23 mmol/L 23-31 AGAP (test code = 6108526732) 2-16 BUN (test code = 8310044150) 8 mg/dL 7-23 GLUCOSE (test code = 3584797495) 124 mg/dL 70-110 H CREATININE (test code = 6476170986) 0.71 mg/dL 0.50-1.04 TOTAL BILI (test code = 9641702550) 0.7 mg/dL 0.1-1.1 CALCIUM (test code = 1431007399) 8.4 mg/dL 8.6-10.6 L T PROTEIN (test code = 5277814876) 9.2 g/dL 6.3-8.2 H ALBUMIN (test code = 6115721890) 3.7 g/dL 3.5-5.0 ALK PHOS (test code = 4211020785) 81 U/L 34-122 ALTv (test code = 1742-6) 19 U/L 5-35 AST(SGOT) (test code = 1474220951) 40 U/L 13-40 eGFR (test code = 1805773413) mL/min/1.73m2 KEYONNA (test code = KEYONNA) Association [...] imaging tests). Lab Interpretation (test code = 44205-1) Abnormal [facility]"
--- NOTE | 2024-02-09 08:58 | EDPHYS ---
Physician Documentation [facility] Name: Tiana Mcrae Age: 58 yrs Sex: Female : 1965 Arrival Date: 02/09/2024 Time: 08:46 Bed IW1 Private MD: ED Physician Raúl Oliveros HPI: 02/08 09:02 This 58 yrs old Black Female presents to ER via Ambulatory with complaints of Drainage ec2 From Eye - right. 09:02 Patient arrives today for evaluation of drainage from the right eye. Reports that she ec2 has been experiencing some drainage as well as notices swelling to the right lower eyelid. Reports no fevers or chills, no nausea or vomiting, does not wear contact lenses.. Historical: - Allergies: 08:56 No Known Allergies; ap3 - PMHx: 08:56 chronic back pain; Migraine; sinus infection; Hypertensive disorder; ap3 - PSHx: 08:56 hysterectomy; ap3 - Immunization history:: Adult Immunizations up to date. - Infectious Disease History:: Denies. - Social history:: Smoking status: Patient reports the use of cigarette tobacco products, smokes one pack cigarettes per day. ROS: 09:02 Constitutional: as per hpi ec2 Exam: 09:02 Constitutional: GEN: NAD Head: atraumatic Eyes: EOMI, right lower lid with hordeolum ec2 noted, drainage from the globe noted, intact range of motion, no pupillary defect Ears: External ears are normal. CV: regular rate LUNGS: no respiratory distress ABD: non-distended SKIN: no evidence of rashes MSK: no evidence of trauma Vital Signs: 08:55 BP 154 / 99; Pulse 74; Resp 17; Temp 97.7; Pulse Ox 98% ; ap3 08:57 Weight 52.16 kg; Height 5 ft. 3 in. ; Pain 7/10; ap3 08:57 Body Mass Index 20.37 (52.16 kg, 160.02 cm) ap3 08:57 Pain Scale: Adult ap3 MDM: 08:57 Patient medically screened. ec2 09:02 Data reviewed: vital signs. ED course: Patient arrives today for evaluation of right ec2 eye drainage and swelling from the right lower eyelid. Examination remarkable for eye findings as above. Presentation consistent with conjunctivitis, hordeolum. Will discharge home. Return precautions given. . Administered Medications: No medications were administered Disposition Summary: 02/09/24 08:57 Discharge Ordered Notes: Location: Home ec2 Condition: Stable ec2 Diagnosis - Hordeolum externum right lower eyelid ec2 - Other conjunctivitis ec2 Followup: ec2 - With: Private Physician - When: - Reason: Re-evaluation by your physician Discharge Instructions: - Discharge Summary Sheet ec2 - Stye ec2 Forms: - Medication Reconciliation Form ec2 - Antibiotic Education ec2 - Prescription Opioid Use ec2 - Patient Portal Instructions ec2 - Leadership Thank You Letter ec2 Prescriptions: - Erythromycin 5 mg/gram (0.5 %) Ophthalmic ointment - apply 1 centimeter OPHTHALMIC route 2-3 times daily for 7 days; 1 unit; ec2 Refills: 0, Product Selection Permitted Signatures: Valentina Lopez RN RN ap3 Raúl Oliveros MD MD ec2
--- NOTE | 2024-02-09 08:58 | ER ---
Nurse's Notes [facility] Name: Tiana Mcrae Age: 58 yrs Sex: Female : 1965 Arrival Date: 02/09/2024 Time: 08:46 Bed IW1 Private MD: Diagnosis: Hordeolum externum right lower eyelid;Other conjunctivitis Presentation: 02/08 08:55 Chief complaint: Patient states: she woke up with swelling and drainage in her right ap3 eye. Coronavirus screen: At this time, the client does not indicate any symptoms associated with coronavirus-19. Ebola Screen: No symptoms or risks identified at this time. Initial Sepsis Screen: Does the patient meet any 2 criteria? No. Patient's initial sepsis screen is negative. Does the patient have a suspected source of infection? No. Patient's initial sepsis screen is negative. Risk Assessment: Do you want to hurt yourself or someone else? Patient reports no desire to harm self or others. Onset of symptoms was February 09, 2024. 08:55 Method Of Arrival: Ambulatory ap3 08:55 Acuity: SD 4 ap3 Triage Assessment: 08:56 General: Appears in no apparent distress. Behavior is calm, cooperative, appropriate ap3 for age. Pain: Complains of pain in right eye. EENT: Eyes drainage noted to the right eye. Neuro: Level of Consciousness is awake, alert, obeys commands, Oriented to person, place, time, situation, Appropriate for age. Cardiovascular: Patient's skin is warm and dry. Respiratory: Airway is patent Respiratory effort is even, unlabored, Respiratory pattern is regular, symmetrical. Historical: - Allergies: 08:56 No Known Allergies; ap3 - PMHx: 08:56 chronic back pain; Migraine; sinus infection; Hypertensive disorder; ap3 - PSHx: 08:56 hysterectomy; ap3 - Immunization history:: Adult Immunizations up to date. - Infectious Disease History:: Denies. - Social history:: Smoking status: Patient reports the use of cigarette tobacco products, smokes one pack cigarettes per day. Screenin:58 [facility] ED Fall Risk Assessment (Adult) History of falling in the last 3 months, ap3 including since admission No falls in past 3 months (0 pts) Confusion or Disorientation No (0 pts) Intoxicated or Sedated No (0 pts) Impaired Gait No (0 pts) Mobility Assist Device Used No (0 pt) Altered Elimination No (0 pt) Score/Fall Risk Level 0 - 2 = Low Risk Oriented to surroundings, Maintained a safe environment, Educated pt \T\ family on fall prevention, incl call for assistance when getting out of bed, Assessed \T\ reinforced patient's understanding of fall precautions, Hourly rounding (assess needs \T\ fall precautionary measures) done, Used ambulatory aids as needed (educated on \T\ assisted with), Used gait belt as appropriate. Abuse screen: Denies threats or abuse. Nutritional screening: No deficits noted. Tuberculosis screening: No symptoms or risk factors identified. Vital Signs: 08:55 BP 154 / 99; Pulse 74; Resp 17; Temp 97.7; Pulse Ox 98% ; ap3 08:57 Weight 52.16 kg; Height 5 ft. 3 in. ; Pain 7/10; ap3 08:57 Body Mass Index 20.37 (52.16 kg, 160.02 cm) ap3 08:57 Pain Scale: Adult ap3 ED Course: 08:50 Patient arrived in ED. ra3 08:51 Raúl Oliveros MD is Attending Physician. ec2 08:56 Triage completed. ap3 08:58 Arm band placed on right wrist. ap3 08:58 Patient has correct armband on for positive identification. Adult w/ patient. Provided ap3 Education on: warm compress education. 08:58 No provider procedures requiring assistance completed. Patient did not have IV access ap3 during this emergency room visit. 09:02 Valentina Lopez RN is Primary Nurse. ap3 Administered Medications: No medications were administered Medication: 08:58 VIS not applicable for this client. ap3 Outcome: 08:57 Discharge ordered by . ec2 09:02 Discharged to home ambulatory, with family, ap3 09:02 Condition: good 09:02 Discharge instructions given to patient, Instructed on discharge instructions, follow up and referral plans. medication usage, Demonstrated understanding of instructions, follow-up care, medications, Prescriptions given X 1, 09:02 Patient left the ED. ap3 Signatures: Valentina Lopez RN RN ap3 Raúl Oliveros MD MD ec2 Kenisha Mehta ra3
[2024-02-09 09:09] VITALS: BP 154/99; TEMP 97.7; O2SAT 98
== END 2024-02-09 09:02 | disposition home or self-care (01) ==
LOC: ER 08:46
DX: H00.012 Hordeolum externum right lower eyelid (principal); H10.89 Other conjunctivitis
CPT/HCPCS: 99283

== ENCOUNTER 2024-02-25 07:17 | Emergency (ER) | payer OTHER ==
--- OUTSIDE RECORDS SUMMARY | 2024-02-25 07:20 | XMS REPORT | Continuity of Care Document ---
Author Name Unknown Address [address] [facility] [place] [address] [facility] Address [address] [place] [address] Care Team Providers Care Air Control Electronics Operator Name Role Phone PCP, PATIENT DOES NOT HAVE A Primary Care Physic sravan Unavailable CHAMP HERNANDEZ Attending Clinician Unavailable FERNANDOMonday Attending Clinician Unavailable NANITA LEW Attending Clinician Unavailable SAURAV EISENBERG Attending Clinician Unavailable Saurav Esquivel Attending Clinician [phone] Krsyta Louis DO Attending Clinician [phone] KRYSTA LOUIS Attending Clinician Unavailab KRYSTA Hinojosa Admitting Clinician Unavailab le Payers Payer Name Policy Type Policy Number Effective Date Expirati on Date Source CEDRICK BRYANT [employer]: [employer] [address] [id number] 2022 00:00:00 [facility] [id number] 2022 00:00:00 Problems Condition Name Condition Details Condition Category Status Onset Date Resolution Date Last Treatment Date Treating Clinician Comments Source No known active problems No known active problems Disease [facility] Allergies, Adverse Reactions, Alerts Allergy Name Allergy Type Status Severity Reaction(s) Onset Date Inactive Date Treating Clinician Comments Source NO KNOWN ALLERGIE S Drug Class Active [facility] Social History Social Habit Start Date [...] intake 2022-10-05 00:00:00 2022-10-05 00:00:00 Ex-drinker (finding) Saolme Fleming - External History of Social function 2022-10-05 00:00:00 2022-10-05 00:00:00 Salome Fleming - External Exposure to SARS-CoV-2 (event) 2022-04-03 00:00:00 2022-04-13 16:18:00 Not sure [facility] Sex Assigned At 1965 00:00:00 1965 00:00:00 Salome Fleming - External Smoking Status Start Date Stop Date Source Tobacco smoking consumption unknown [facility] Smokes tobacco daily 2022-10-05 00:00:00 Salome Fleming - External Medications Ordered Medication Name Filled Medication Name Start Date Stop Date Current Medication? Ordering Clinician Indication Dosage Frequency Signature (SIG) Comments Components Source Etodolac 400 MG oral Tablet 10-05 00:00: 00 Yes [id number] 400mg Take 1 tablet (400 mg total) by mouth 2 times daily Take with food Salome obregon Tizanidine HCl 4 MG oral Tablet 10-05 00:00: 00 Yes [id number] 4mg Q.25D Take 1 tablet (4 mg total) by mouth every 6 hours as needed for muscle spasms Salome [place] Gabapentin 100 MG oral Capsule 10-05 00:00: 00 Yes [id number] 100mg Take 1 capsule (100 mg total) by mouth 3 times daily Salome [place] methylPREDN ISolone 4 MG oral Tablet Therapy Pack 09-06 00:00: 00 Yes [id number] 1{rianna} Take 1 rianna by mouth See Admin Instructio ns Use as directed Salome [place] Amoxicillin -Pot Clavulanate 875-125 MG oral Tablet 09-06 00:00: 00 Yes [id number] 1{tbl} Take 1 tablet by mouth 2 times daily Salome ob[place] Albuterol HFA 108 (90 Base) MCG/ACT IN AERS 09-06 00:00: 00 Yes [id number] 2{puff} Q.25D Inhale 2 puffs into the lungs every 6 hours as needed for wheezing Salome ob[place] FENTanyl PF (SUBLIMAZE (PF)) injection 50 mcg 2021-05 22:45: 00 04-13 22:59 :00 No 50ug 50 mcg, Intramuscu lar, ONCE, 1 dose, On Mon04/13/22 at 1645, STAT [facility] acetaminoph en (TYLENOL) tablet 650 mg 2020-05 18:45: 00 03-19 17:55 :00 No 650mg 650 mg, Oral, ONCE, 1 dose, On Mon03/19/21 at 1245, RONAN [facility] ketorolac (TORADOL) injection 30 mg 2020-05 18:45: 00 03-19 17:55 :00 No 30mg 30 mg, Slow IV Push, ONCE, 1 dose, On Mon03/19/21 at 1245, RONAN
Fa culty member approving Restricted medication : KRYSTA LOUIS [facility] ondansetron (ZOFRAN (PF)) injection 4 mg 2020-05 18:45: 00 03-19 17:55 :00 No 4mg 4 mg, Slow IV Push, ONCE, 1 dose, On Mon03/19/21 at 1245, RONAN [facility] NaCl 0.9% (NS) bolus infusion 1,000 mL 2020-05 18:45: 00 03-19 19:55 :00 No 1000mL at 999 mL/hr, 1,000 mL, IV Infusion, ONCE, 1 dose, On Mon03/19/21 at 1245, RONAN [facility] albuterol 90 mcg/actuati on inhaler 2020-05 00:00: 00 Yes [id number] 2{puff} Inhale 2 Puffs every 4 (four) hours as needed for Wheezing or Shortness of Breath. [facility] ondansetron (ZOFRAN ODT) 4 mg disintegrat ing tablet 2020-05 00:00: 00 Yes [id number] 4mg Take 1 tablet by mouth every 8 (eight) hours as needed for Nausea and Vomiting (N/V). [facility] benzonatate 100 mg capsule 2020-05 00:00: 00 Yes [id number] 100mg Take 1 capsule by mouth 3 (three) times daily as needed for Cough. [facility] bromphenira mine-pseudo ephedrine-D M (BROMFED DM) 2-30-10 mg/5 mL syrup 2020-05 00:00: 00 Yes [id number] 5mL Take 5 mL by mouth 4 (four) times daily as needed for Cold symptoms. [facility] Vital Signs Vital Name Observation Time [...] Systolic blood pressure 2022-04-13 22:18:00 143 mm[Hg] [facility] Diastolic blood pressure 2022-04-13 22:18:00 95 mm[Hg] [facility] Heart rate 2022-04-13 22:18:00 72 /min [facility] Body temperature 2022-04-13 22:18:00 36.5 [facility] Respiratory rate 2022-04-13 22:18:00 20 /min [facility] Body height 2022-04-13 22:18:[address] [facility] Body weight 2022-04-13 22:18:[address] [facility] BMI 2022-04-13 22:18:00 21.26 kg/m2 [facility] Oxygen saturation in Arterial blood by Pulse oximetry 2022-04-13 22:18:00 99 /min [facility] Systolic blood pressure 2021-03-19 20:00:00 102 mm[Hg] [facility] Diastolic blood pressure 2021-03-19 20:00:00 73 mm[Hg] [facility] Heart rate 2021-03-19 20:00:00 81 [facility] Respiratory rate 2021-03-19 20:00:00 14 /min [facility] Oxygen saturation in Arterial blood by Pulse oximetry 2021-03-19 20:00:00 97 /min [facility] Body temperature 2021-03-19 17:34:00 39.11 [facility] Body weight 2021-03-19 17:34:[address] [facility] Procedures Procedure Date / Time Performed Performing Clinicia n Source LUMBAR SPINE 2 VIEWS 2022-10-05 19:37:50 Adelina Hightower - External THORACIC SPINE 3 VIEWS 2022-10-05 19:37:06 Mitchell Highotwer - External CONSENT/REFUSAL FOR DIAGNOSIS AND TREATMENT 2022-04-13 22:10:03 Doctor Unassigned, [place] XR CHEST 1 VW 2021-03-19 18:10:58 Krysta Louis [facility] COMP. METABOLIC PANEL ([id number]) 2021-03-19 17:53:00 Krysta Louis [facility] CBC WITH DIFF 2021-03-19 17:53:00 Krysta Louis [facility] CONSENT/REFUSAL FOR DIAGNOSIS AND TREATMENT 2021-03-19 17:29:16 Doctor Unassigned, [facility] NOTICE OF PRIVACY PRACTICES 2021-03-19 17:27:40 Doctor Unassigned, [place] Encounters Start Date/Time End Date/Time Encounter Type Admission Type Attending [facility] Facility Care Department Encounter ID Source 2022-12-21 14:00:00 2022-12-21 14:00:00 Outpatient MARY CHAMP SALOME BROWN [id number] [facility] 2022-10-05 14:35:00 2022-10-05 14:35:00 Outpatient SALOME BROWN [id number] [facility] 2022-10-05 14:30:00 2022-10-05 14:30:00 Outpatient SALOME BROWN [id number] [facility] 2022-10-05 14:00:00 2022-10-05 14:00:00 Outpatient KATJAMITCHELL SALOME BROWN [id number] [facility] 2022-09-23 08:00:00 2022-09-23 08:00:00 Outpatient CINTHYA HIGHTOWERAY SALOME BROWN [id number] [facility] 2022-09-20 00:00:00 2022-09-20 00:00:00 Outpatient LUCASLOBO ANNITA SALOME BROWN [id number] [facility] 2022-09-06 15:30:00 2022-09-06 15:30:00 Outpatient KATJAMITCHELL [facility] BROWN [id number] [facility] 2022-04-13 16:20:00 2022-04-13 17:17:00 Emergency X SAURAV EISENBERG VARENA ERT [id number] [facility] 2022-04-13 16:20:00 2022-04-13 17:17:00 Emergency Saurav Eisenberg [facility] [id number] [facility] 2021-03-19 11:37:00 2021-03-19 14:26:00 Emergency Krysta Louis [facility] [id number] [facility] 2021-03-19 11:37:00 2021-03-19 14:26:00 Emergency X KRYSTA LOUIS [facility] ERT [id number] [facility] Results Test Description Test Time Test Comments Results Result Co [id number][facility]-19 18:30:14* Test Item Value Reference Range Interpretation Comme nts NA (test code = 4068384226) 129 mmol/L 135-145 L K (test code = 4509347078) 3.3 mmol/L 3.5-5.0 L CL (test code = 7371534245) 97 mmol/L 98-108 L CO2 TOTAL (test code = 1085408102) 23 mmol/L 23-31 AGAP (test code = 1143613128) 2-16 BUN (test code = 5599565636) 8 mg/dL 7-23 GLUCOSE (test code = 1395587356) 124 mg/dL 70-110 H CREATININE (test code = 8057391061) 0.71 mg/dL 0.50-1.04 TOTAL BILI (test code = 3216756887) 0.7 mg/dL 0.1-1.1 CALCIUM (test code = 4433905872) 8.4 mg/dL 8.6-10.6 L T PROTEIN (test code = 3721645693) 9.2 g/dL 6.3-8.2 H ALBUMIN (test code = 1289026455) 3.7 g/dL 3.5-5.0 ALK PHOS (test code = 5489806339) 81 U/L 34-122 ALTv (test code = 1742-6) 19 U/L 5-35 AST(SGOT) (test code = 8981290510) 40 U/L 13-40 eGFR (test code = 6136785614) mL/min/1.73m2 KEYONNA (test code = KEYONNA) Association [...] imaging tests). Lab Interpretation (test code = 10241-7) Abnormal [facility]"
[2024-02-25] MEDS ORDERED: FENTANYL CITR 100 MCG/2 ML ONE (07:38)
[2024-02-25] MEDS ORDERED: ONDANSETRON 4 MG/2 ML VIAL ONE (08:18)
[2024-02-25] MEDS ORDERED: MORPHINE 4 MG/ML SYR ONE ×2 (08:19→09:41)
--- NOTE | 2024-02-25 08:58 | RAD REPORT ---
EXAMINATION: XR LEFT HIP CLINICAL INDICATION: . PAIN TECHNIQUE: Multiple views of the left hip were obtained. COMPARISON: No prior exam. FINDINGS: Subcapital fracture of the proximal left femur is seen with mild impaction. No dislocation evident. IMPRESSION: Subcapital mildly impacted fracture proximal left femur.
--- NOTE | 2024-02-25 08:59 | RAD REPORT ---
EXAMINATION: XR PELVIS CLINICAL INDICATION: PAIN TECHNIQUE: AP Pelvis examination was obtained. COMPARISON: No prior exam. FINDINGS: Mildly impacted fracture subcapital location proximal left femur. No dislocation.
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
[2024-02-25 16:35] VITALS: BP 153/102; TEMP 97.5; O2SAT 100
== END 2024-02-25 10:31 | disposition short-term general hospital (02) ==
LOC: ER 07:17
DX: S72.012A Unspecified intracapsular fracture of left femur, initial encounter for closed fracture (principal); W19.XXXA Unspecified fall, initial encounter; I10 Essential (primary) hypertension; M54.9 Dorsalgia, unspecified; G89.29 Other chronic pain
CPT/HCPCS: 72170; 73502; 96375; 96374; 99285; J3010; J2405